=== PATIENT | male | born 1970 | race Two or more races ===

== ENCOUNTER 2020-10-10 10:03 | Emergency (ER) | payer MEDICAID, SELFPAY ==
[2020-10-10] VITALS (8 sets, daily range): BP systolic 103–129; BP diastolic 54–82; PULSE 63–90; RESP 18–20; TEMP 36.4–37.1; O2SAT 98; BMI 27.4
--- NOTE | 2020-10-10 10:13 | PC.NURSE ---
Pt arrived w/ [facility]- cooperative w/ changeover.
--- NOTE | 2020-10-10 10:50 | ED_ITS ---
HPI - Psych General Chief Complaint: Psychiatric Symptoms Stated Complaint: depression/seeking detox Time Seen by Provider: 10/10/20 10:18 Source: patient and EMS Mode of arrival: EMS Limitations: no limitations History of Present Illness HPI Narrative: 50-year-old male with a past medical history asthma, recent abimael mbar surgery, history of substance abuse, depression here with feeling depressed, vague suicidal statements. Patient tells me that he had surgery about 2 months ago on his lumbar spine after an accident. Was prescribed Percocet. He tells me he used his last Percocet Sunday evening. He started to have withdrawal symptoms and bought some heroin. He tells me this morning and 1 hour prior to arrival he snorted heroin. He tells me his mind was racing and he had thoughts of wanting to hurt himself. He tells me he has had history of suicide attempts in the past. He did call his mental health [facility] and she recommended he come to the emergency department. In the room he tells me that he does not feel safe at home and he feels like he will harm himself. Patient states is there anything sharp in here that I can hurt myself with ? He tells me yesterday he bought a bundle of heroin and thought about intentional OD. He used several bags and flushed the rest. he tells me years ago he had substance abuse history but has been [facility] and was [facility] 2007 after being there for 19 years. He tells me he has been doing well and has a job and is working on his relationship with his daughter. He is frustrated with his withdrawal symptoms and has been struggling with trying to discontinue his percocet. He does not want to use substances. Tried to start methadone last week but does not have an ID. Has appt next week to get a picture ID. Not interested in suboxone as he had insomnia as a side effect in the past. no HI. No hallucinations. No additional substance use. No physical complaints. MD complaint: suicidal ideation, feels depressed and substance abuse Onset (ago): day(s) Duration: intermittent History of same: Yes Context: recent drug abuse Associated psychiatric symptoms: depression and suicidal ideation Associated symptoms: denies other symptoms Treatments prior to arrival: none If self harm: admits thoughts of self harm Related Data Allergies Allergy/AdvReac Type Severity Reaction Status Date / Time penicillin G Allergy Unknown Verified 06/30/20 00:00 Penicillins [PENICILLINS] Allergy Unknown BEHZAD LEONARDO Unverified 08/05/20 15:39 TWISTS. Review of Systems Review of Systems: Yes all other systems are reviewed and are negative Constitutional: Constitutional: Reports no additional constitutional complaints, Denies body ache(s), Denies chills, Denies fever(s), Denies headache(s) and Denies weakness Eyes: Eyes: Reports no additional eye complaints and Denies change in vision ENT: Reports system reviewed and no additional complaints, except as documented, Denies dizziness, Denies headache(s), Denies nasal congestion, German es nasal discharge and Denies neck pain Cardiovascular: Cardiovascular: Reports no additional cardiovascular complaints, Denies chest pain, Denies leg edema and Denies dyspnea Respiratory: Respiratory: Reports no additional respiratory complaints, Denies cough and Denies dyspnea Gastrointestinal: Gastrointestinal: Reports no additional gastrointestinal complaints, Denies abdominal pain, Denies diarrhea, Denies nausea and Denies vomiting Genitourinary: Genitourinary: Denies urinary incontinence Musculoskeletal: Musculoskeletal: Reports no additional musculoskeletal complaints, Denies back pain, Denies arthralgias, Denies joint swelling, Denies neck pain, Denies numbness and Denies tingling Integumentary/Breasts: Skin/Breast: Reports system reviewed and no additional complaints, except as docu and Denies rash Neurologic: Reports system reviewed and no additional complaints, except as documented, Denies Abnormal speech present, Denies dizziness, Denies headache(s), Denies numbness, Denies tingling and Denies weakness Psychiatric: Psychiatric: Denies anxiety, Reports depression, Denies homicidal ideation and Reports suicidal ideation [facility] Past Medical History Attestation statement: The following information was validated with the patient. Source: obtained from family and nursing notes reviewed Medical History Asthma Back pain with history of spinal surgery Depression Substance abuse Social History Social History Alcohol intake: former Smoking Status: Current every day smoker Use of substances other than those prescribed or required for medical reasons: Yes Substance Use Type: Heroin Advance Directives: No Advance Directives Information Provided: Yes Physical Exam Vital Signs: Vital Signs: Last Vital Signs Temp 98.4 F 10/10/20 10:48 Pulse 77 10/10/20 10:48 Resp 18 10/10/20 16:00 BP 129/82 10/10/20 10:48 Body Mass Index 27.4 Const: General: cooperative, healthy appearing, comfortable and no acute distress Orientation/consciousness: patient oriented x3 Limitations: no limitations HENMT: Head: Yes normal to inspection Ears: hearing grossly normal bilaterally General nose exam: Normal external nose present Face and sinus: Yes normal facial exam Mouth: Normal oral and palatal mucosa present Throat: Yes posterior oropharynx normal Eyes: General: appearance normal, both eyes and all related structures Pupils: Equal, round and reactive pupils present Neck: Neck: Yes normal visual inspection Chest: Chest palpation & inspection: normal inspection of the chest Resp: Effort & Inspection: normal respiratory effort Auscultation: clear to auscultation bilaterally Cardio: Rate: regular rate Rhythm: regular rhythm Peripheral pulses: P eripheral pulses 2+ throughout GI: Inspection: Yes normal to inspection Palpation (GI): Soft to palpation and nontender Auscultation: normal bowel sounds Back/Spine/Pelvis: Thoracic/Lumbar Spine: thoracic and lumbar spine normal to inspection Skin: General skin exam: no rashes or lesions noted Neuro: General: patient oriented x3, no focal motor deficits and normal sensation to monofilament Cranial nerves: Yes Equal, round and reactive pupils present Cognition (Neuro): normal cognition Speech: No Abnormal speech present Gait exam (Neuro): Normal gait present Motor exam (neuro): 5/5 motor strength present throughout Extrem: General: Yes normal to inspection Course Course Course Narrative: 50-year-old male here with depression, feeling like he is withdrawing and feeling like he is unsafe home and may harm himself. No concern for acute ingestion or trauma. No physical complaints. Will need labs, drug screen, BHN evaluation. MDM - Psych Restraints Face to Face Assessment: Face to Face Assessment: Current Situation: After assessment of the patient, a review of the pertinent medical record and a discussion with nursing staff, I feel the patient requires a restrain intervention. Reaction To: [] Medical Condition: [] Behavioral State: [] Continued Need: [] Medical Records Attestation: I reviewed the patient's medical records. Lab Data Attestation: I reviewed the patient's lab results. Result diagrams: 10/10/20 10:57 10/10/20 10:57 Labs: Lab Results 10/10/20 10/10/20 10/10/20 Range/Units 10:49 10:57 10:57 WBC 8.5 (4.8-10.8) X10*3/uL RBC 4.45 L (4.60-5.80) X10*6/uL Hgb 13.3 L (14.0-18.0) g/dl Hct 40.2 L (42-52) % MCV 90.3 (80-98) fL MCH 29.9 (27.0-33.0) pg MCHC 33.1 (31.0-36.0) g/dl RDW 12.9 (11.0-16.0) % Plt Count 149 L (160-400) X10*3/uL MPV 11.3 (9.4-12.4) fL Immature Gran % (Auto) 0.2 (0.0-0.4) % Neut % (Auto) 76.6 H (45-73) % Lymph % (Auto) 17.9 L (20-40) % [place] % (Auto) 4.4 (2-11) % Eos % (Auto) 0.7 (0-4) % Baso % (Auto) 0.2 (0-2) % Lymph # (Auto) 1.5 (1.2-4.9) X10*3/uL [place] # (Auto) 0.4 (0.1-1.2) X10*3/uL Eos # (Auto) 0.1 (0.0-0.4) X10*3/uL Baso # (Auto) 0.0 (0.0-0.2) X10*3/uL Abs Immat Gran (auto) 0.02 (0.00-0.03) X10*3/uL Absolute Neuts (auto) 6.5 (2.0-8.3) X10*3/uL Absolute Nucleated RBC 0.000 (0.0-0.012) X10*3/uL Nucleated RBC % (auto) 0.0 (0.0-0.2) /100WBC Sodium 139 (135-145) mmol/L Potassium 4.6 (3.3-5.1) mmol/l Chloride 106 (96-108) mmol/L Carbon Dioxide 26 (22-29) mmol/L Anion Gap 12 (12-20) BUN 15 (9-16) mg/dL Creatinine 1.04 (0.5-1.4) mg/dL Estim Creat Clear Calc 82.1 Estimated GFR > 60 Random Glucose 114 (60-115) mg/dL Calcium 9.1 (8.4-10.2) mg/dL Total Bilirubin (0.0-1.0) mg/dL Direct Bilirubin (0.0-0.5) mg/dL AST (5-37) U/L ALT (0-40) U/L Alkaline Phosphatase (39-117) U/L Total Protein (6.5-8.0) g/dL Albumin (3.5-5.0) g/dL Urine Opiates Screen POSITIVE H (Not Detect) Ur Barbiturates Screen Not Detected (Not Detect) Ur Phencyclidine Scrn Not Detected (Not Detect) Ur Amphetamines Screen Not Detected (Not Detect) U Benzodiazepines Scrn Not Detected (Not Detect) Urine Cocaine Screen Not Detected (Not Detect) U Marijuana (THC) Screen Not Detected (Not Detect) Ethyl Alcohol mg/dL COVID-19 (ADRIAN) (Negative) COVID-19 Clin Com 10/10/20 10/10/20 10/10/20 Range/Units 10:57 10:57 11:06 WBC (4.8-10.8) X10*3/uL RBC (4.60-5.80) X10*6/uL Hgb (14.0-18.0) g/dl Hct (42-52) % MCV (80-98) fL MCH (27.0-33.0) pg MCHC (31.0-36.0) g/dl RDW (11.0-16.0) % Plt Count (160-400) X10*3/uL MPV (9.4-12.4) fL Immature Gran % (Auto) (0.0-0.4) % Neut % (Auto) (45-73) % Lymph % (Auto) (20-40) % [place] % (Auto) (2-11) % Eos % (Auto) (0-4) % Baso % (Auto) (0-2) % Lymph # (Auto) (1.2-4.9) X10*3/uL [place] # (Auto) (0.1-1.2) X10*3/uL Eos # (Auto) (0.0-0.4) X10*3/uL Baso # (Auto) (0.0-0.2) X10*3/uL Abs Immat Gran (auto) (0.00-0.03) X10*3/uL Absolute Neuts (auto) (2.0-8.3) X10*3/uL Absolute Nucleated RBC (0.0-0.012) X10*3/uL Nucleated RBC % (auto) (0.0-0.2) /100WBC Sodium (135-145) mmol/L Potassium (3.3-5.1) mmol/l Chloride (96-108) mmol/L Carbon Dioxide (22-29) mmol/L Anion Gap (12-20) BUN (9-16) mg/dL Creatinine (0.5-1.4) mg/dL Estim Creat Clear Calc Estimated GFR Random Glucose (60-115) mg/dL Calcium (8.4-10.2) mg/dL Total Bilirubin 0.3 (0.0-1.0) mg/dL Direct Bilirubin 0.2 (0.0-0.5) mg/dL AST 28 (5-37) U/L ALT 32 (0-40) U/L Alkaline Phosphatase 55 (39-117) U/L Total Protein 7.3 (6.5-8.0) g/dL Albumin 4.3 (3.5-5.0) g/dL Urine Opiates Screen (Not Detect) Ur Barbiturates Screen (Not Detect) Ur Phencyclidine Scrn (Not Detect) Ur Amphetamines Screen (Not Detect) U Benzodiazepines Scrn (Not Detect) Urine Cocaine Screen (Not Detect) U Marijuana (THC) Screen (Not Detect) Ethyl Alcohol < 10 mg/dL COVID-19 (ADRIAN) Negative (Negative) COVID-19 Clin Com See Note Discharge Plan Discharge Clinical Impression: Depression, Feeling suicidal, Substance use
[2020-10-10 11:17] LABS: Basophils Percent Auto 0.2 % (0-2); Eosinophils Absolute Auto 0.1 X10*3/uL (0.0-0.4); Eosinophils Percent Auto 0.7 % (0-4); Hematocrit 40.2 % (42-52); Hemoglobin 13.3 g/dl (14.0-18.0); Imm Gran Abs Auto 0.02 X10*3/uL (0.00-0.03); Imm Gran Pct Auto 0.2 % (0.0-0.4); Lymphocytes Absolute Auto 1.5 X10*3/uL (1.2-4.9); Lymphocytes Percent Auto 17.9 % (20-40); MANUAL DIFF FLAG NO; Mean Corpuscular HGB Conc 33.1 g/dl (31.0-36.0); Mean Corpuscular Hemoglobin 29.9 pg (27.0-33.0); Mean Corpuscular Volume 90.3 fL (80-98); Mean Platelet Volume 11.3 fL (9.4-12.4); Monocytes Absolute Auto 0.4 X10*3/uL (0.1-1.2); Monocytes Percent Auto 4.4 % (2-11); Neutrophils Absolute Auto 6.5 X10*3/uL (2.0-8.3); Neutrophils Percent Auto 76.6 % (45-73); Platelet Count 149 X10*3/uL (160-400); Red Blood Count 4.45 X10*6/uL (4.60-5.80); Red Cell Distribution Width 12.9 % (11.0-16.0); White Blood Count 8.5 X10*3/uL (4.8-10.8)
[2020-10-10 11:36] LABS: COVID-19 Test Negative (Negative)
[2020-10-10 11:36] LABS: Ethanol < 10 mg/dL
[2020-10-10 11:40] LABS: Alanine Aminotransferase 32 U/L (0-40); Albumin Level 4.3 g/dL (3.5-5.0); Alkaline Phosphatase 55 U/L (39-117); Anion Gap 12 (12-20); Aspartate Amino Transferase 28 U/L (5-37); Bilirubin Direct 0.2 mg/dL (0.0-0.5); Bilirubin Total 0.3 mg/dL (0.0-1.0); Blood Urea Nitrogen 15 mg/dL (9-16); Calcium 9.1 mg/dL (8.4-10.2); Carbon Dioxide 26 mmol/L (22-29); Chloride 106 mmol/L (96-108); Creatinine Clr Calc Pharmacy 82.1; Estimated Glomerular Filt Rate > 60; Glucose Random 114 mg/dL (60-115); Potassium 4.6 mmol/l (3.3-5.1); Sodium 139 mmol/L (135-145); Total Protein 7.3 g/dL (6.5-8.0)
[2020-10-10 11:51] LABS: Amphetamine Screen Urine Not Detected (Not Detect); Barbiturates, Urine Not Detected (Not Detect); Benzodiazepines Screen Urine Not Detected (Not Detect); Cannabinoid Screen Urine Not Detected (Not Detect); Cocaine Screen Urine Not Detected (Not Detect); Opiate Screen Urine POSITIVE (Not Detect); Phencyclidine Screen Urine Not Detected (Not Detect)
--- NOTE | 2020-10-10 12:48 | PC.NURSE ---
michaelle called -no response. called again, spoke w/ [place]lotte.
--- NOTE | 2020-10-10 12:51 | PC.NURSE ---
Per [facility], no fax received despite receipt. Fax resent.
[2020-10-10] MEDS: Nicotine Polacrilex 2 MG GUM BUCCAL ×2 (13:43→21:11)
--- NOTE | 2020-10-10 15:46 | PC.NURSE ---
BHN in to assess pt. Pt reporting sympoms of withdrawal including restless, anxiety, chills. Rossi mccabe.
[2020-10-10] MEDS: LORazepam 0.5 MG TABLET 1 MG PO (15:53)
--- NOTE | 2020-10-10 19:05 | PC.NURSE ---
Patient in bed at this time, calm, quiet, appears sleeping, no distress observed/reported, respiration +/=/non-labored bilaterally, will continue to monitor.
[2020-10-10] MEDS: LORazepam 1 MG TABLET PO (21:07)
--- NOTE | 2020-10-10 21:28 | PC.NURSE ---
Patient seems restless, vital assessed/WNL, COW assessed/scored 10, provider notified/ordered Ativan 1 mg/administered as ordered, will continue to monitor.
[2020-10-11] VITALS (11 sets, daily range): BP systolic 94–119; BP diastolic 48–83; PULSE 66–85; RESP 16–20; TEMP 36.8–37; O2SAT 97–99
[2020-10-11] MEDS: Nicotine Polacrilex 2 MG GUM BUCCAL ×5 (00:41→19:26)
[2020-10-11] MEDS: cloNIDine HCL 0.1 MG TABLET PO ×2 (01:39→04:49)
--- NOTE | 2020-10-11 01:47 | PC.NURSE ---
Patient reported anxiety, vital signs WNL, provider notified/ordered Clonidine 0.1 mg/administered as ordered, will continue to monitor.
[2020-10-11] MEDS: LORazepam 1 MG TABLET PO (03:55)
[2020-10-11] MEDS: LORazepam 1 MG TABLET 2 MG PO ×2 (09:31→22:46)
[2020-10-11] MEDS: Buprenorphine/Naloxone 4/1 mg FILM 1 FILM SUBLINGUAL ×2 (10:08→12:24)
--- NOTE | 2020-10-11 11:14 | MHC.CARE ---
Recovery Support note: Patient is a 50 year old Chinese speaking male who presented to [facility] due to SI and depression following a relapse on heroin. Patient reports having back surgery in July and that he has been on Percocet since then and recently ran out of medication, leading him to turn to heroin. Patient reports he is uncomfortable due to the withdrawal symptoms, specifically sweating and shaking. Patient reports a long history of incarceration and a desire to get into recovery so that he can have a good relationship with his daughter. Patient reports he has tried Suboxone in the past and that it gave him insomnia. Patient reports he ultimately wants to get on Methadone as he still experiences back pain. Patient reports he is interested in giving Suboxone another shot due to the level of discomfort he is experiencing. This public relations writer explained to patient that he will be able to continue getting the Suboxone while in treatment, and that they will schedule an appointment for him before he discharges. This public relations writer provided patient with information on the [facility]. Discussed case with patient's RN and ED provider.
--- NOTE | 2020-10-11 15:44 | PC.NURSE ---
Report received. Pt reports he is feeling a lot better than he did yesterday. No complaints at this time. Calm and cooperative. Currently resting in his room.
--- NOTE | 2020-10-11 17:36 | PC.NURSE ---
Pt on phone at current. No complaints, calm.
--- NOTE | 2020-10-11 19:07 | PC.NURSE ---
Report received. PT is sleeping in bed. Breathing is even and unlabored. Inpatient bed search in progress.
--- NOTE | 2020-10-11 19:27 | PC.NURSE ---
PT woke up out of bed and started pacing around the unit. When asked if he needed anything, PT responded saying I was doing fine but then I started to get chills in bed so I'm trying to walk them off . PT offered and accepted PRN nicotine gum. PT was not exhibiting any other signs of withdrawal at this time. No other complaints made by PT.
--- NOTE | 2020-10-11 20:21 | PC.NURSE ---
PT is now requesting his night time medications . PT stated that he would like his suboxone to help with withdrawal. No mediations are available in MAR.
[2020-10-12] VITALS (7 sets, daily range): BP systolic 90–113; BP diastolic 55–68; PULSE 66–85; RESP 16–20; TEMP 36.3–37.3; O2SAT 97–99
[2020-10-12] MEDS: Nicotine Polacrilex 2 MG GUM BUCCAL ×4 (04:16→21:22)
[2020-10-12] MEDS: cloNIDine HCL 0.2 MG TABLET PO (05:30)
--- NOTE | 2020-10-12 06:59 | PC.NURSE ---
Report recieved. Pt ambulated to bathroom with steady gait, denies complaints, pt currently watching tv. Pt is inpatient bedsearch.
[2020-10-12] MEDS: Buprenorphine/Naloxone 4/1 mg FILM 1 FILM SUBLINGUAL ×2 (09:42→21:22)
[2020-10-12] MEDS: LORazepam 1 MG TABLET PO (16:36)
[2020-10-12] MEDS: Miconazole 2 % Extra Thick Cr 56.7 Gm Tube 1 APPL TOPICAL (16:48)
--- NOTE | 2020-10-12 19:02 | PC.NURSE ---
Report received. PT out of bed to use the bathroom and asking for crackers and juice. Calm and cooperative. Inpatient bed search in progress.
[2020-10-13] VITALS: BP 95/63; PULSE 74; RESP 18; TEMP 36.5; O2SAT 98
--- NOTE | 2020-10-13 01:29 | PC.NURSE ---
Nurse called [facility] and recommended a [facility] for the PT. PT came in on 10/10/20 when he became an inpatient bed search. PT recently stated that he would now like to go home instead. DANAN stated that someone would be here in the morning to reassess.
[2020-10-13 06:00] VITALS: BP 109/65; PULSE 72; RESP 18; TEMP 36.7; O2SAT 98
--- NOTE | 2020-10-13 07:37 | PC.NURSE ---
Report received from KURT Gage. Pt awake, affect even. showered.
[2020-10-13] MEDS: Nicotine Polacrilex 2 MG GUM BUCCAL (08:42)
[2020-10-13] MEDS: Buprenorphine/Naloxone 8/2 mg TAB.SUBL 1 TAB SUBLINGUAL (09:11)
[2020-10-13 10:18] VITALS: BP 116/81; PULSE 74; TEMP 36.3; O2SAT 99
--- NOTE | 2020-10-13 10:22 | PC.NURSE ---
Pt seen by N, per N to be discharged. Pt affect bright, states he is looking forward to seeing family.
--- NOTE | 2020-10-13 10:54 | PC.NURSE ---
CARE team in- able to obtain appointment today w/ [facility] for follow up care for Suboxone.
== END 2020-10-13 11:07 | disposition home or self-care (01) ==
PROVIDERS: Nurse Practitioner Family; Emergency Provider Emergency Medicine
DX: F33.1 Major depressive disorder, recurrent, moderate (principal); R45.851 Suicidal ideations; F11.10 Opioid abuse, uncomplicated; Z20.828 Contact with and (suspected) exposure to other viral communicable diseases; Z71.51 Drug abuse counseling and surveillance of drug abuser
CPT/HCPCS: 36415; 80048; 80076; 80307; 80320; 85025; 87635; 99285; J0573; J0574

== ENCOUNTER → 2020-10-13 11:11 | Outpatient (BNVA) | payer MEDICAID, SELFPAY | PROVIDERS: Visit Provider Internal Medicine | DX: F11.99 Opioid use, unspecified with unspecified opioid-induced disorder (principal); R76.8 Other specified abnormal immunological findings in serum | CPT/HCPCS: 99202; 99211 ==

== ENCOUNTER 2020-10-27 13:03 | Outpatient (REF) | payer MEDICAID, SELFPAY ==
[2020-10-29 08:27] LABS: Hepatitis A Antibody IgG REACTIVE (Nonreactive); ~Hepatitis A Antibody IgG 13.56 S/CO (0.00-0.99)
[2020-10-29 08:46] LABS: ~HepC Num1 13.59 S/CO (0.00-0.79); ~Hepatitis B Surface Antibody REACTIVE (Nonreactive); ~Hepatitis C Antibody Reactive (Nonreactive)
[2020-10-29 09:30] LABS: HBsAGNum1 0.22 S/CO (0.00-0.99); HIV AB/AG Nonreactive (Nonreactive); HIV Num 1 0.07 S/CO (0.00-0.99); Hepatitis B Surface Antigen Negative (Negative)
[2020-10-29 11:13] LABS: HBc Num1 10.56 S/CO (0.00-0.79)
[2020-10-29 11:19] LABS: HBc Num2 10.56 S/CO; HBc Num3 10.91 S/CO; Hepatitis B Core Antibody Reactive (Nonreactive)
[2020-10-30 13:13] LABS: Hepatitis B Core Antibody IgM NON-REACTIVE (NON-REACTIVE)
[2020-10-30 19:02] LABS: FIB-ALT 28 U/L (9-46); FIB-Alpha-2-Macroglobulin 216 mg/dL (106-279); FIB-Apolipoprotein A1 157 mg/dL (94-176); FIB-GGT 30 U/L (3-95); FIB-Haptoglobin 72 mg/dL (43-212); FIB-Total Bilirubin 0.3 mg/dL (0.2-1.2); Liver Fibrosis Score 0.23; Liver Fibrosis Stage F0-F1; Nec Inflam Act Grade A0; Nec Inflam Act Score 0.12
[2020-11-02 15:38] LABS: Hepatitis C Genotype 1a
== END 2020-10-27 13:04 | disposition home or self-care (01) ==
LOC: HO.LAB 13:03
PROVIDERS: Visit Provider Internal Medicine
DX: F11.99 Opioid use, unspecified with unspecified opioid-induced disorder (principal)
CPT/HCPCS: 80305; 81596; 86704; 86705; 86706; 86708; 86803; 87340; 87389; 87902; 99211

== ENCOUNTER → 2020-11-03 14:08 | Outpatient (BNVA) | payer MEDICAID, SELFPAY | PROVIDERS: Visit Provider Internal Medicine | DX: Z76.89 Persons encountering health services in other specified circumstances (principal) ==

== ENCOUNTER → 2021-01-07 11:33 | Outpatient (BNVA) | payer MEDICAID, SELFPAY | PROVIDERS: Visit Provider Nurse Practitioner ==

== ENCOUNTER 2021-01-13 09:32 | Outpatient (REF) | payer MEDICAID, SELFPAY ==
--- NOTE | ~2021-01-13 | US_ITS ---
EXAMINATION: US ABDOMEN COMPLETE CLINICAL INFORMATION: Chronic hepatitis C. COMPARISON: CT 05/12/2019 TECHNIQUE: Real-time imaging of the abdominal viscera. FINDINGS: PANCREAS: Obscured by bowel gas ABDOMINAL AORTA: The proximal, mid, and distal segments are normal in caliber. INFERIOR VENA CAVA: Visualized portions are normal. LIVER: Borderline increased echogenicity of the liver parenchyma. No focal hepatic lesion. There is no intrahepatic biliary duct dilatation seen. Right lobe measures 15.6 cm. Left lobe measures 10.6 cm. Shear wave liver elastography median stiffness is 1.52 m/s (reference: normal median stiffness is 1.3 m/s or less). IQR/median stiffness to assess sampling precision is 0.18 (reference: good quality data set is IQR/median stiffness of 0.15 or less). GALLBLADDER: Normal. The gallbladder is physiologically distended without evidence of stones, sludge, polyps, wall thickening or pericholecystic fluid. COMMON BILE DUCT: Normal in caliber measuring 0.5 cm in diameter. RIGHT KIDNEY: Normal. No hydronephrosis. No renal calculi or focal parenchymal lesions. The kidney measures 9.1 cm in maximum dimension. LEFT KIDNEY: Normal. No hydronephrosis. No renal calculi or focal parenchymal lesions. The kidney measures 10.2 cm in maximum dimension. SPLEEN: Normal. The spleen measures 10.4 cm in maximum dimension. FREE FLUID: None. US/US abdomen complete IMPRESSION: 1. There is borderline increase in hepatic echotexture, correlating with the clinical history of cirrhosis. No focal hepatic mass or intrahepatic biliary duct dilatation is seen. 2. Pancreas obscured by bowel gas. 3. Liver elastography: Median stiffness of 1.52 m/s. As per the attached reference- In the absence of other known clinical signs, rules out compensated advanced chronic liver disease. See attached reference. REFERENCE: Society of Radiologists in Ultrasound Liver Stiffness Thresholds (2020): LIVER STIFFNESS THRESHOLDS: *Liver Stiffness equal or less than 1.3 m/s: High probability of being normal. *Liver Stiffness less than 1.7 m/s: In the absence of other known clinical signs, rules out compensated advanced chronic liver disease. *Liver Stiffness 1.7-2.1 m/s: Suggestive of compensated advanced chronic liver disease but need further test for confirmation. *Liver Stiffness over 2.1 m/s: Rules in compensated advanced chronic liver disease. *Liver Stiffness over 2.4 m/s: Suggestive of clinically significant portal hypertension. QUALITY OF DATA SET: *IQR/Median value equal or less than 0.15 implies a quality data set. *IQR/Median value over 0.15 implies a poor quality data set. SIGNIFICANT CHANGE FROM PRIOR EXAM: Significant change if liver stiffness measurement is 10% or greater from prior exam. OTHER CONSIDERATIONS: The stage of liver fibrosis may be overestimated in the setting of acute hepatitis, liver inflammation, elevated liver function tests, hepatic vascular congestion, obstructive cholestasis, non-fasting state, and infiltrative diseases such as amyloidosis and lymphoma. In some patients with NAFLD, the liver stiffness thresholds for compensated advanced chronic liver disease may be lower. In causes other than viral hepatitis and NAFLD, liver stiffness thresholds are not well established.
[2021-01-13 10:57] LABS: MANUAL DIFF FLAG NO
[2021-01-13 11:02] LABS: Basophils Percent Auto 0.5 % (0-2); Eosinophils Absolute Auto 0.2 X10*3/uL (0.0-0.4); Eosinophils Percent Auto 2.6 % (0-4); Hematocrit 39.2 % (42-52); Imm Gran Abs Auto 0.01 X10*3/uL (0.00-0.03); Imm Gran Pct Auto 0.1 % (0.0-0.4); Lymphocytes Absolute Auto 1.9 X10*3/uL (1.2-4.9); Lymphocytes Percent Auto 24.8 % (20-40); Mean Corpuscular HGB Conc 33.2 g/dl (31.0-36.0); Mean Corpuscular Hemoglobin 29.7 pg (27.0-33.0); Mean Corpuscular Volume 89.5 fL (80-98); Mean Platelet Volume 11.6 fL (9.4-12.4); Monocytes Absolute Auto 0.6 X10*3/uL (0.1-1.2); Monocytes Percent Auto 7.7 % (2-11); Neutrophils Percent Auto 64.3 % (45-73); Platelet Count 147 X10*3/uL (160-400); Red Blood Count 4.38 X10*6/uL (4.60-5.80); Red Cell Distribution Width 12.8 % (11.0-16.0); White Blood Count 7.8 X10*3/uL (4.8-10.8)
[2021-01-13 11:33] LABS: Alanine Aminotransferase 45 U/L (0-40); Albumin Level 4.4 g/dL (3.5-5.0); Alkaline Phosphatase 46 U/L (39-117); Anion Gap 11 (12-20); Aspartate Amino Transferase 68 U/L (5-37); Bilirubin Total 0.7 mg/dL (0.0-1.0); Blood Urea Nitrogen 20 mg/dL (9-16); Calcium 9.4 mg/dL (8.4-10.2); Carbon Dioxide 26 mmol/L (22-29); Chloride 108 mmol/L (96-108); Estimated Glomerular Filt Rate 57; Glucose Random 95 mg/dL (60-115); Potassium 4.8 mmol/L (3.3-5.1); Sodium 140 mmol/L (135-145); Total Protein 6.9 g/dL (6.5-8.0)
== END 2021-01-13 09:33 | disposition home or self-care (01) ==
LOC: HO.US 09:32
PROVIDERS: Nurse Practitioner; Visit Provider Emergency Medicine
DX: Z12.11 Encounter for screening for malignant neoplasm of colon (principal); B19.20 Unspecified viral hepatitis C without hepatic coma; K59.04 Chronic idiopathic constipation; F11.99 Opioid use, unspecified with unspecified opioid-induced disorder; R76.8 Other specified abnormal immunological findings in serum
CPT/HCPCS: 36415; 76700; 80053; 85025; 87522

== ENCOUNTER → 2021-03-04 10:48 | Outpatient (BNVA) | payer OTHER, SELFPAY | PROVIDERS: PCP Internal Medicine; Visit Provider Nurse Practitioner ==

== ENCOUNTER 2021-03-23 10:23 | Outpatient (REF) | payer OTHER, SELFPAY | END 2021-03-23 10:24 | disposition home or self-care (01) | LOC: HO.LAB 10:23 | PROVIDERS: PCP Internal Medicine; Visit Provider Nurse Practitioner | DX: Z13.89 Encounter for screening for other disorder (principal) ==

== ENCOUNTER 2021-04-14 13:32 | Outpatient (REF) | payer OTHER, SELFPAY ==
--- NOTE | ~2021-04-14 | XR_ITS ---
EXAMINATION: RIGHT SHOULDER AND CERVICAL SPINE. CLINICAL INFORMATION: Pain right shoulder neck pain. COMPARISON: Right shoulder 06/30/20. TECHNIQUE: 4 views right shoulder. Cervical spine 6 views. FINDINGS: RIGHT SHOULDER: There is no visible acute fracture, dislocation or subluxation. There is mild reduction in the glenohumeral joint space. No bony erosive changes seen. There is a 5 mm calcified density along the lateral cortex right proximal femur question old injury versus calcific bursitis. CERVICAL SPINE: There is maintained cervical lordosis. The vertebral heights and alignment is normal. There is loss of C3-C4, C5-C6, C6-C7 and C7-T1 disc heights. There is moderate to C3-C4 and mild C6-C7 neural foraminal narrowing from uncovertebral hypertrophic changes. No visible acute fracture or dislocation seen. XR/XR cervical spine min 6V IMPRESSION: Degenerative changes glenohumeral joint with no visible acute fracture or dislocation right shoulder. Small calcified density lateral cortex right proximal humerus likely calcific bursitis oral injury. Bilateral moderate C3-C4 and mild C6-C7 neural foraminal narrowing from uncovertebral hypertrophic changes. There is no visible acute fracture, dislocation or lytic process seen.
--- NOTE | ~2021-04-14 | XR_ITS ---
EXAMINATION: RIGHT SHOULDER AND CERVICAL SPINE. CLINICAL INFORMATION: Pain right shoulder neck pain. COMPARISON: Right shoulder 06/30/20. TECHNIQUE: 4 views right shoulder. Cervical spine 6 views. FINDINGS: RIGHT SHOULDER: There is no visible acute fracture, dislocation or subluxation. There is mild reduction in the glenohumeral joint space. No bony erosive changes seen. There is a 5 mm calcified density along the lateral cortex right proximal femur question old injury versus calcific bursitis. CERVICAL SPINE: There is maintained cervical lordosis. The vertebral heights and alignment is normal. There is loss of C3-C4, C5-C6, C6-C7 and C7-T1 disc heights. There is moderate to C3-C4 and mild C6-C7 neural foraminal narrowing from uncovertebral hypertrophic changes. No visible acute fracture or dislocation seen. XR/XR shoulder RT min 2V IMPRESSION: Degenerative changes glenohumeral joint with no visible acute fracture or dislocation right shoulder. Small calcified density lateral cortex right proximal humerus likely calcific bursitis oral injury. Bilateral moderate C3-C4 and mild C6-C7 neural foraminal narrowing from uncovertebral hypertrophic changes. There is no visible acute fracture, dislocation or lytic process seen.
== END 2021-04-14 13:33 | disposition home or self-care (01) ==
LOC: HO.XRAY 13:32
PROVIDERS: Absent Provider Nurse Practitioner Family; PCP Nurse Practitioner Family; Visit Provider Registered Nurse
DX: M25.511 Pain in right shoulder (principal); M54.2 Cervicalgia; M79.601 Pain in right arm; M89.8X1 Other specified disorders of bone, shoulder
CPT/HCPCS: 72052; 73030

== ENCOUNTER → 2021-05-19 08:48 | Outpatient (BNVA) | payer OTHER, SELFPAY | PROVIDERS: PCP Internal Medicine; Visit Provider Nurse Practitioner | DX: Z13.89 Encounter for screening for other disorder (principal) | CPT/HCPCS: 99212 ==

== ENCOUNTER → 2021-06-06 10:07 | Outpatient (BNVA) | payer OTHER, SELFPAY | PROVIDERS: PCP Internal Medicine; Visit Provider Nurse Practitioner ==

== ENCOUNTER 2021-06-09 08:07 | Emergency (ER) | payer OTHER, SELFPAY ==
--- NOTE | ~2021-06-09 | XR_ITS ---
EXAMINATION: RIGHT KNEE AND RIGHT ANKLE CLINICAL INFORMATION: Pain COMPARISON: None TECHNIQUE: 4 views of the right ankle and 4 views of the right knee FINDINGS: There is no evidence of acute fracture or dislocation of the right ankle. Mild soft tissue swelling is seen laterally. There appears be a subchondral cyst about the talar dome medially There is no evidence of acute fracture or dislocation of the right knee. Right knee joint spaces are maintained. No effusion is seen. There is some bony fragmentation seen about the tibial tuberosity as well as some overlying soft tissue edema with the appearance of old [place]-Schlatter's disease as well as edema of some etiology such as trauma.. XR/XR ankle RT min 3V IMPRESSION: No evidence of acute fracture or dislocation of the right ankle. No evidence of acute fracture, dislocation, or effusion of the right knee. Findings of chronic enlarged There is disease as well as soft tissue swelling overlying the tibial tuberosity likely related to trauma as [place]-Schlatter's disease is unusual in adults.
--- NOTE | ~2021-06-09 | XR_ITS ---
EXAMINATION: RIGHT KNEE AND RIGHT ANKLE CLINICAL INFORMATION: Pain COMPARISON: None TECHNIQUE: 4 views of the right ankle and 4 views of the right knee FINDINGS: There is no evidence of acute fracture or dislocation of the right ankle. Mild soft tissue swelling is seen laterally. There appears be a subchondral cyst about the talar dome medially There is no evidence of acute fracture or dislocation of the right knee. Right knee joint spaces are maintained. No effusion is seen. There is some bony fragmentation seen about the tibial tuberosity as well as some overlying soft tissue edema with the appearance of old [place]-Schlatter's disease as well as edema of some etiology such as trauma.. XR/XR knee RT 3V IMPRESSION: No evidence of acute fracture or dislocation of the right ankle. No evidence of acute fracture, dislocation, or effusion of the right knee. Findings of chronic enlarged There is disease as well as soft tissue swelling overlying the tibial tuberosity likely related to trauma as [place]-Schlatter's disease is unusual in adults.
--- NOTE | ~2021-06-09 | US_ITS ---
EXAMINATION: US VENOUS ULTRASOUND WITH DOPPLER LOWER EXTREMITY, RIGHT CLINICAL INFORMATION: Pain. COMPARISON: None TECHNIQUE: Ultrasound of the deep veins is performed from the hip to the calf with compression sonography and color and pulse Doppler assessment. Spectral analysis with color-flow imaging is performed. FINDINGS: There is normal venous compression and respiratory variation and augmented flow. The visualized common femoral vein, superficial femoral vein, profunda femoral vein, popliteal vein, and the trifurcation region shows no evidence of deep venous thrombosis. There is no significant popliteal fossa cyst. If the patient's symptoms persist, followup ultrasound in 5 days 7 days might be of value to exclude proximal propagation from a non-visualized calf vein. US/US venous duplex LE RT IMPRESSION: No DVT demonstrated in the right lower extremity.
[2021-06-09 08:14] VITALS: BP 132/73; BP 146/60; PULSE 64; PULSE 68; RESP 18; TEMP 37.2; O2SAT 97; O2SAT 98; BMI 27.4
--- NOTE | 2021-06-09 08:18 | ED_ITS ---
HPI - Extremity Injury (Lower) General Chief Complaint: Extremity Injury, Lower Stated Complaint: r ankle pain Time Seen by Provider: 06/09/21 08:18 History of Present Illness HPI Narrative: 51 years old history of back surgery in the past. Complaining of pain to the right leg. Patient has pain to the right knee and to the right ankle. No bowel urinary incontinence. No fever no chills. No focal weakness. Pain is excruciating. No trauma. Related Data Home Medications Medication Instructions Recorded Confirmed folic acid 1 mg tablet 1 mg PO QAM 02/22/21 02/27/21 methadone 40 mg soluble tablet 50 mg PO DAILY tab 02/22/21 02/27/21 hozaarrq-mko-mkrvp acid 0.4 1 tab PO QAM 02/22/21 02/27/21 mg-lycopene 300 mcg-lutein 250 mcg tablet olanzapine 2.5 mg tablet 2.5 mg PO BEDTIME 02/22/21 02/27/21 thiamine HCl (vitamin B1) 100 mg 100 mg PO QAM 02/22/21 02/27/21 tablet albuterol sulfate 90 mcg/actuation 2 puff PO Q4-6H PRN 03/04/21 aerosol inhaler Previous Rx's Medication Instructions Recorded buprenorphine 8 mg-naloxone 2 mg 2 film SUBLINGUAL DAILY 14 Days 11/16/20 sublingual film #28 ea bisacodyl 5 mg tablet,delayed 10 mg PO BEDTIME 2 Days #4 tab 01/07/21 release sofosbuvir 400 mg-velpatasvir 100 1 tab PO DAILY 28 Days #28 tab 02/21/21 mg-voxilaprevir 100 mg tablet linaclotide 145 mcg capsule 145 mcg PO QAM 30 Days #30 cap 03/04/21 bisacodyl 5 mg tablet,delayed 10 mg PO ONCE 1 Days #2 tab 03/28/21 release polyethylene glycol 3350 17 238 g PO ONCE 1 Days #238 g 03/28/21 gram/dose oral powder Allergies Allergy/AdvReac Type Severity Reaction Status Date / Time Penicillins [PENICILLINS] Allergy Unknown MY MALISSA Verified 06/06/21 10:08 TWISTS. PMFSH Past Medical History Medical History Asthma Depression Hepatitis C antibody positive in blood Opioid use disorder Substance abuse Surgical History Back pain with history of spinal surgery Hx of colonoscopy Family History Family History Family/Other Family history of asthma Mother Family history of asthma Social History Social History Household Members: Family Household Members Other:: sister Alcohol intake: current Alcohol intake frequency: a few times a month Cigarette Packs Per Day: 0.5 Cigarettes Per Day: 10 Advance Directives: Yes Advance Directives Information Provided: Yes Advance Directives on File: No Current occupational status: unemployed Physical Exam Vital Signs: Vital Signs: Last Vital Signs Temp 98.9 F 06/09/21 08:14 Pulse 65 06/09/21 12:08 Resp 16 06/09/21 12:08 BP 125/60 06/09/21 12:08 Pulse Ox 98 06/09/21 12:08 Body Mass Index 27.4 MDM - Extremity Injury (Lower) MDM Narrative Medical decision making narrative: X-ray of the knee and ankle did not show any acute evidence of fracture. Doppler of the lower extremity did not show any evidence of DVT. Patient's white count is normal. Electrolyte was pending. Patient decided to elope from the emergency department. No acute distress. No bowel urinary incontinence. No focal weakness. No evidence for cauda equina syndrome. Currently in stable condition. Question sciatica Medical Records Attestation: I reviewed the patient's medical records. Lab Data Attestation: I reviewed the patient's lab results. Result diagrams: 06/09/21 11:54 06/09/21 11:54 Labs: Lab Results 06/09/21 Range/Units 11:54 WBC 9.8 (4.8-10.8) X10*3/uL RBC 3.97 L (4.60-5.80) X10*6/uL Hgb 11.7 L (14.0-18.0) g/dl Hct 36.1 L (42-52) % MCV 90.9 (80-98) fL MCH 29.5 (27.0-33.0) pg MCHC 32.4 (31.0-36.0) g/dl RDW 12.7 (11.0-16.0) % Plt Count 142 L (160-400) X10*3/uL MPV 10.6 (9.4-12.4) fL Immature Gran % (Auto) 0.2 (0.0-0.4) % Neut % (Auto) 74.7 H (45-73) % Lymph % (Auto) 17.7 L (20-40) % [place] % (Auto) 6.8 (2-11) % Eos % (Auto) 0.5 (0-4) % Baso % (Auto) 0.1 (0-2) % Lymph # (Auto) 1.7 (1.2-4.9) X10*3/uL [place] # (Auto) 0.7 (0.1-1.2) X10*3/uL Eos # (Auto) 0.1 (0.0-0.4) X10*3/uL Baso # (Auto) 0.0 (0.0-0.2) X10*3/uL Abs Immat Gran (auto) 0.02 (0.00-0.03) X10*3/uL Absolute Neuts (auto) 7.3 (2.0-8.3) X10*3/uL Absolute Nucleated RBC 0.000 (0.0-0.012) X10*3/uL Nucleated RBC % (auto) 0.0 (0.0-0.2) /100WBC Discharge Plan Discharge Clinical Impression: Sciatic leg pain Patient Disposition: Home, Self-Care Instructions: Sciatica (ED) Prescriptions: No Action Vosevi 400-100-100 mg tablet 1 tab PO DAILY 28 Days Qty: 28 RF: 2 bisacodyl [Dulcolax (bisacodyl)] 5 mg tablet,delayed release (DR/EC) 10 mg PO ONCE 1 Days Qty: 2 RF: 0 polyethylene glycol 3350 [Miralax] 17 gram/dose powder 238 g PO ONCE 1 Days Qty: 238 RF: 0 methadone 40 mg tablet,soluble 50 mg PO DAILY RF: 0 CertaVite Senior 0.4-300-250 mg-mcg-mcg tablet 1 tab PO QAM RF: 0 folic acid 1 mg tablet 1 mg PO QAM RF: 0 thiamine HCl (vitamin B1) 100 mg tablet 100 mg PO QAM RF: 0 olanzapine 2.5 mg tablet 2.5 mg PO BEDTIME RF: 0 buprenorphine-naloxone [Suboxone] 8-2 mg film 2 film sublingual DAILY 14 Days Qty: 28 RF: 0 bisacodyl [Dulcolax (bisacodyl)] 5 mg tablet,delayed release (DR/EC) 10 mg PO BEDTIME 2 Days Qty: 4 RF: 0 albuterol sulfate 90 mcg/actuation HFA aerosol inhaler 2 puff PO Q4-6H PRNRF: 0 Linzess 145 mcg capsule 145 mcg PO QAM 30 Days Qty: 30 RF: 6 Interventions: ED Discharge Assessment Last Done: 06/09/21 12:10
[2021-06-09] MEDS: oxyCODONE HCl Immed Release 5 MG TABLET PO (08:40)
[2021-06-09 12:02] LABS: MANUAL DIFF FLAG NO
[2021-06-09 12:04] LABS: Basophils Percent Auto 0.1 % (0-2); Eosinophils Absolute Auto 0.1 X10*3/uL (0.0-0.4); Eosinophils Percent Auto 0.5 % (0-4); Hematocrit 36.1 % (42-52); Hemoglobin 11.7 g/dl (14.0-18.0); Imm Gran Abs Auto 0.02 X10*3/uL (0.00-0.03); Imm Gran Pct Auto 0.2 % (0.0-0.4); Lymphocytes Absolute Auto 1.7 X10*3/uL (1.2-4.9); Lymphocytes Percent Auto 17.7 % (20-40); Mean Corpuscular HGB Conc 32.4 g/dl (31.0-36.0); Mean Corpuscular Hemoglobin 29.5 pg (27.0-33.0); Mean Corpuscular Volume 90.9 fL (80-98); Mean Platelet Volume 10.6 fL (9.4-12.4); Monocytes Absolute Auto 0.7 X10*3/uL (0.1-1.2); Monocytes Percent Auto 6.8 % (2-11); Neutrophils Absolute Auto 7.3 X10*3/uL (2.0-8.3); Neutrophils Percent Auto 74.7 % (45-73); Platelet Count 142 X10*3/uL (160-400); Red Blood Count 3.97 X10*6/uL (4.60-5.80); Red Cell Distribution Width 12.7 % (11.0-16.0); White Blood Count 9.8 X10*3/uL (4.8-10.8)
[2021-06-09 12:08] VITALS: BP 125/60; PULSE 65; RESP 16; O2SAT 98
[2021-06-09 12:43] LABS: Anion Gap 9 (12-20); Blood Urea Nitrogen 20 mg/dL (9-16); Carbon Dioxide 26 mmol/L (22-29); Chloride 106 mmol/L (96-108); Creatinine Clr Calc Pharmacy 80.4; Estimated Glomerular Filt Rate > 60; Glucose Random 84 mg/dL (60-115); Sodium 136 mmol/L (135-145)
== END 2021-06-09 12:14 | disposition home or self-care (01) ==
PROVIDERS: Emergency Provider Emergency Medicine Emergency Medical Services
DX: M54.31 Sciatica, right side (principal); M79.604 Pain in right leg; M25.571 Pain in right ankle and joints of right foot; F17.210 Nicotine dependence, cigarettes, uncomplicated; F11.20 Opioid dependence, uncomplicated
CPT/HCPCS: 36415; 73562; 73610; 80048; 85025; 93971; 99284

== ENCOUNTER → 2021-07-14 09:09 | Outpatient (BNVA) | payer OTHER, SELFPAY | PROVIDERS: Visit Provider Nurse Practitioner ==

== ENCOUNTER → 2021-08-30 08:58 | Outpatient (BNVA) | payer OTHER, SELFPAY | PROVIDERS: Visit Provider Nurse Practitioner ==

== ENCOUNTER → 2021-12-12 15:00 | Outpatient (BNVA) | payer MEDICAID, SELFPAY | PROVIDERS: Visit Provider Anesthesiology | DX: M96.1 Postlaminectomy syndrome, not elsewhere classified (principal); M47.816 Spondylosis without myelopathy or radiculopathy, lumbar region; M51.36 Other intervertebral disc degeneration, lumbar region; G89.4 Chronic pain syndrome | CPT/HCPCS: 99212 ==

== ENCOUNTER 2022-03-01 08:14 | Emergency (ER) | payer MEDICAID, SELFPAY ==
--- NOTE | ~2022-03-01 | US_ITS ---
EXAMINATION: US VENOUS ULTRASOUND WITH DOPPLER LOWER EXTREMITY, BILATERAL CLINICAL INFORMATION: Pain and swelling. COMPARISON: None TECHNIQUE: Ultrasound of the deep veins is performed from the hip to the calf with compression sonography and color and pulse Doppler assessment. Spectral analysis with color-flow imaging is performed. FINDINGS: RIGHT: There is normal venous compression and respiratory variation and augmented flow. The visualized common femoral vein, superficial femoral vein, profunda femoral vein, popliteal vein, and the trifurcation region shows no evidence of deep venous thrombosis. There is no significant popliteal fossa cyst. LEFT: There is normal venous compression and respiratory variation and augmented flow. The visualized common femoral vein, superficial femoral vein, profunda femoral vein, popliteal vein, and the trifurcation region shows no evidence of deep venous thrombosis. There is no significant popliteal fossa cyst. If the patient's symptoms persist, followup ultrasound in 5 days 7 days might be of value to exclude proximal propagation from a non-visualized calf vein. US/US venous duplex LE BI IMPRESSION: No DVT demonstrated in the bilateral lower extremity.
--- NOTE | ~2022-03-01 | XR_ITS ---
EXAMINATION: XR CHEST CLINICAL INFORMATION: Bilateral leg swelling with SOB. COMPARISON: None TECHNIQUE: Frontal view of the chest was obtained. FINDINGS: No significant abnormality is noted involving the heart, lungs, mediastinum, bony thorax or soft tissues. XR/XR chest 1V IMPRESSION: Unremarkable chest examination.
[2022-03-01 08:23] VITALS: BP 104/60; PULSE 60; RESP 16; TEMP 35.8; O2SAT 98; BMI 31.8
--- NOTE | 2022-03-01 08:27 | ECG_ITS ---
Test Reason : SWELLING,SOB Blood Pressure : / mmHG Vent. Rate : 050 BPM Atrial Rate : 050 BPM P-R Int : 198 ms QRS Dur : 106 ms QT Int : 486 ms P-R-T Axes : 036 006 012 degrees QTc Int : 443 ms Sinus bradycardia Otherwise normal ECG No previous ECGs available Referred By: Generic ED Physician Electronically Signed By:Wilian Frost
[2022-03-01 08:38] LABS: MANUAL DIFF FLAG NO
[2022-03-01 08:39] LABS: Basophils Percent Auto 0.1 % (0-2); Eosinophils Absolute Auto 0.3 X10*3/uL (0.0-0.4); Eosinophils Percent Auto 3.4 % (0-4); Hematocrit 35.7 % (42.0-52.0); Hemoglobin 11.6 g/dl (14.0-18.0); Imm Gran Abs Auto 0.02 X10*3/uL (0.00-0.03); Imm Gran Pct Auto 0.3 % (0.0-0.4); Lymphocytes Absolute Auto 1.9 X10*3/uL (1.2-4.9); Lymphocytes Percent Auto 24.7 % (20-40); Mean Corpuscular HGB Conc 32.5 g/dl (31.0-36.0); Mean Corpuscular Hemoglobin 29.8 pg (27.0-33.0); Mean Corpuscular Volume 91.8 fL (80.0-98.0); Mean Platelet Volume 10.9 fL (9.4-12.4); Monocytes Absolute Auto 0.5 X10*3/uL (0.1-1.2); Monocytes Percent Auto 6.9 % (2-11); Neutrophils Percent Auto 64.6 % (45-73); Platelet Count 140 X10*3/uL (160-400); Red Blood Count 3.89 X10*6/uL (4.60-5.80); Red Cell Distribution Width 13.5 % (11.0-16.0); White Blood Count 7.7 X10*3/uL (4.8-10.8)
--- NOTE | 2022-03-01 08:39 | PC.NURSE ---
pt ambulating in room, asking for something to drink. no distress noted.
[2022-03-01 08:53] LABS: Anion Gap 9 (12-20); Blood Urea Nitrogen 18 mg/dL (9-16); Carbon Dioxide 27 mmol/L (22-29); Chloride 107 mmol/L (96-108); Creatinine Clr Calc Pharmacy 70.1; Estimated Glomerular Filt Rate 58; Glucose Random 120 mg/dL (60-115); Potassium 4.4 mmol/L (3.3-5.1); Sodium 139 mmol/L (135-145)
[2022-03-01 09:00] LABS: B Type Natriuretic Peptide 76 pg/mL (<100); Troponin-I High Sensitivity < 3.5 ng/L (<3.5-35.0)
--- NOTE | 2022-03-01 09:08 | ED_ITS ---
HPI - Extremity Problem General Chief complaint: General Medical Stated complaint: Swollen legs Time Seen by Provider: 03/01/22 08:30 Source: patient Mode of arrival: ambulatory Limitations: no limitations History of Present Illness MD Complaint: extremity swelling Onset (ago): week(s) (1+ on and off) Pain Consistency: intermittent Location: left, right and lower extremity Quality: aching Radiation: none Relieving factors: nothing Exacerbating factors: weight bearing and other (on his feet alot tried 4 tabs of lasix around 02/16 but does not wear compression stockings) Associated symptoms: denies other symptoms Context: other (on his feet a lot) Related Data Home Medications Medication Instructions Recorded Confirmed folic acid 1 mg tablet 1 mg PO QAM 02/22/21 02/27/21 methadone 40 mg soluble tablet 50 mg PO DAILY tab 02/22/21 02/27/21 spgoivco-ulf-mtlkv acid 0.4 1 tab PO QAM 02/22/21 02/27/21 mg-lycopene 300 mcg-lutein 250 mcg tablet olanzapine 2.5 mg tablet 2.5 mg PO BEDTIME 02/22/21 02/27/21 thiamine HCl (vitamin B1) 100 mg 100 mg PO QAM 02/22/21 02/27/21 tablet albuterol sulfate 90 mcg/actuation 2 puff PO Q4-6H PRN 03/04/21 aerosol inhaler capsaicin 0.075 % topical cream appl TOPICAL TID 12/12/21 (Arthritis Pain Relief (capsaicin)) diclofenac sodium 1 % topical gel 2 g TOPICAL QID 12/12/21 duloxetine 30 mg capsule,delayed 30 mg PO DAILY 12/12/21 release gabapentin 300 mg capsule 300 mg PO TID 12/12/21 Previous Rx's Medication Instructions Recorded buprenorphine 8 mg-naloxone 2 mg 2 film SUBLINGUAL DAILY 14 Days 11/16/20 sublingual film (Suboxone) #28 ea bisacodyl 5 mg tablet,delayed 10 mg PO BEDTIME 2 Days #4 tab 01/07/21 release (Dulcolax (bisacodyl)) sofosbuvir 400 mg-velpatasvir 100 1 tab PO DAILY 28 Days #28 tab 02/21/21 mg-voxilaprevir 100 mg tablet (Vosevi) linaclotide 145 mcg capsule 145 mcg PO QAM 30 Days #30 cap 03/04/21 (Linzess) bisacodyl 5 mg tablet,delayed 10 mg PO ONCE 1 Days #2 tab 03/28/21 release (Dulcolax (bisacodyl)) polyethylene glycol 3350 17 238 g PO ONCE 1 Days #238 g 03/28/21 gram/dose oral powder (Miralax) furosemide 20 mg tablet (Lasix) 20 mg PO DAILY #3 tab 03/01/22 miscellaneous medical supply #4 ea 03/01/22 Allergies Allergy/AdvReac Type Severity Reaction Status Date / Time Penicillins [PENICILLINS] Allergy Unknown MY TOUNGE Verified 12/12/21 15:16 TWISTS. Review of Systems Review of Systems: Constitutional : No Fever, No Chills ENT/Mouth : No Ear Pain, No Hoarseness, No sore throat Eyes: No Eye Pain, No Swelling, No Redness, No Foreign Body Cardiovascular : No Chest Pain, No SOB, pos lower ext edema Respiratory : No Cough, No Dyspnea Gastrointestinal : No Nausea, No Vomiting, No Diarrhea, No abdominal Pain Genitourinary : No Dysuria, No Hematuria Musculoskeletal : no joint pain, No Myalgias, No Joint Swelling Skin : No Skin lacerations, No rash Neuro : No Weakness, No Numbness, No Loss of Consciousness, No Dizziness, No Headache Psych : No Anxiety/Panic, No Depression Heme/Lymph: no easy bruising, no Lymphadenopathy Endocrine : No Polyuria, No Polydipsia All other systems reviewed and are negative [facility] Past Medical History Attestation statement: The following information was validated with the patient. Medical History Asthma Chronic pain syndrome Depression Disc degeneration, lumbar Hepatitis C antibody positive in blood Opioid use disorder Postlaminectomy syndrome Spondylosis of lumbar region without myelopathy or radiculopathy Substance abuse Surgical History Back pain with history of spinal surgery Hx of colonoscopy Family History Family History Family/Other Family history of asthma Mother Family history of asthma Social History Social History Household Members: Family Household Members Other:: sister Alcohol intake: current Alcohol intake frequency: a few times a month Cigarette Packs Per Day: 0.5 Cigarettes Per Day: 10 Advance Directives: No Advance Directives Information Provided: No Current occupational status: unemployed Physical Exam Vital Signs: Vital Signs: Last Vital Signs Temp 97.6 F 03/01/22 11:12 Pulse 46 L 03/01/22 11:12 Resp 15 03/01/22 11:12 BP 120/62 03/01/22 11:12 Pulse Ox 98 03/01/22 11:12 BMI result Body Mass Index 31.8 Appearance: Alert. Oriented X3. No acute distress. Eyes: Pupils equal, round and reactive to light. ENT: Pharynx normal. Neck: Normal inspection. Neck supple. CVS: Normal heart rate and rhythm. Pulses normal. Respiratory: No respiratory distress. Breath sounds normal. Abdomen: Soft and nontender. Skin: Skin warm and dry. Normal skin color. Normal skin turgor. Extremities: 1+ pitting edema ankles and mid lower extremity edema. No calf ttp Neuro: Oriented X 3. No motor deficit. No sensory deficit. MDM - Extremity (Nontraumatic) MDM Narrative Medical decision making narrative: 51 yo male with hx of hep c opiate use disorder, cosntipation, hematuria, hep c, intermittent pedal edema took lasix 4 days 02/16 - hx of same in past likely due to cirrhosis vs frequent walking - will obtain CXR, US to r/o DVT if all negative, repeat lasxi dose and compression stockings. Lab Data Result diagrams: 03/01/22 08:32 03/01/22 08:32 Labs: Lab Results 03/01/22 03/01/22 03/01/22 Range/Units 08:32 08:32 08:32 WBC 7.7 (4.8-10.8) X10*3/uL RBC 3.89 L (4.60-5.80) X10*6/uL Hgb 11.6 L (14.0-18.0) g/dl Hct 35.7 L (42.0-52.0) % MCV 91.8 (80.0-98.0) fL MCH 29.8 (27.0-33.0) pg MCHC 32.5 (31.0-36.0) g/dl RDW 13.5 (11.0-16.0) % Plt Count 140 L (160-400) X10*3/uL MPV 10.9 (9.4-12.4) fL Immature Gran % (Auto) 0.3 (0.0-0.4) % Neut % (Auto) 64.6 (45-73) % Lymph % (Auto) 24.7 (20-40) % [place] % (Auto) 6.9 (2-11) % Eos % (Auto) 3.4 (0-4) % Baso % (Auto) 0.1 (0-2) % Lymph # (Auto) 1.9 (1.2-4.9) X10*3/uL [place] # (Auto) 0.5 (0.1-1.2) X10*3/uL Eos # (Auto) 0.3 (0.0-0.4) X10*3/uL Baso # (Auto) 0.0 (0.0-0.2) X10*3/uL Abs Immat Gran (auto) 0.02 (0.00-0.03) X10*3/uL Absolute Neuts (auto) 5.0 (2.0-8.3) x10*3/uL Absolute Nucleated RBC 0.000 (0.0-0.012) X10*3/uL Nucleated RBC % (auto) 0.0 (0.0-0.2) /100WBC Sodium 139 (135-145) mmol/L Potassium 4.4 (3.3-5.1) mmol/L Chloride 107 (96-108) mmol/L Carbon Dioxide 27 (22-29) mmol/L Anion Gap 9 L (12-20) BUN 18 H (9-16) mg/dL Creatinine 1.29 (0.5-1.4) mg/dL Estim Creat Clear Calc 70.1 Estimated GFR 58 Random Glucose 120 H D (60-115) mg/dL Calcium 9.0 (8.4-10.2) mg/dL Troponin I High Sens < 3.5 (<3.5-35.0) ng/L B-Natriuretic Peptide 76 (<100) pg/mL ECG Data Attestation EKG: I personally reviewed and interpreted this ECG as follows: ECG interpretation date: 03/01/22 ECG interpretation time: 09:14 Interpretation: Rate: 50 Rhythm: sinus bradycardia [place]: normal Normal P waves. Normal VENANCIO. Normal QRS complex. ST T wave : normal no MARKUS qTC: normal prior studies: no acute ischemia The study has been interpreted contemporaneously by me. Discharge Plan Discharge Clinical Impression: Pedal edema Patient Disposition: Home, Self-Care Instructions: Leg Edema (ED) Additional Instructions: return to ED for any worsening symptoms or concerns wear compression stockings keep legs elevated no blood clots on exam Prescriptions: New (DME) miscellaneous medical supply Misc See Rx Instructions .Route Qty: 4 0RF Rx Instructions: As directed furosemide [Lasix] 20 mg tablet 20 mg PO DAILY Qty: 3 0RF Rx Instructions: start on 03/02 No Action Vosevi 400-100-100 mg tablet 1 tab PO DAILY 28 Days Qty: 28 2RF Rx Instructions: Take one tablet by mouth daily for twelve weeks total; must administer with a meal/food bisacodyl [Dulcolax (bisacodyl)] 5 mg tablet,delayed release (DR/EC) 10 mg PO ONCE 1 Days Qty: 2 0RF Rx Instructions: Take 2 tablets at 12:00pm the day before your procedure, bowel prep polyethylene glycol 3350 [Miralax] 17 gram/dose powder 238 g PO ONCE 1 Days Qty: 238 0RF Rx Instructions: Take as directed by mouth, bowel prep methadone 40 mg tablet,soluble 50 mg PO DAILY 0RF CertaVite Senior 0.4-300-250 mg-mcg-mcg tablet 1 tab PO QAM 0RF folic acid 1 mg tablet 1 mg PO QAM 0RF thiamine HCl (vitamin B1) 100 mg tablet 100 mg PO QAM 0RF olanzapine 2.5 mg tablet 2.5 mg PO BEDTIME 0RF buprenorphine-naloxone [Suboxone] 8-2 mg film 2 film sublingual DAILY 14 Days Qty: 28 0RF Rx Instructions: place 1 strip/tab under (each) side of tongue bisacodyl [Dulcolax (bisacodyl)] 5 mg tablet,delayed release (DR/EC) 10 mg PO BEDTIME 2 Days Qty: 4 0RF albuterol sulfate 90 mcg/actuation HFA aerosol inhaler 2 puff PO Q4-6H PRN0RF Linzess 145 mcg capsule 145 mcg PO QAM 30 Days Qty: 30 6RF duloxetine 30 mg capsule,delayed release(DR/EC) 30 mg PO DAILY 0RF gabapentin 300 mg capsule 300 mg PO TID 0RF diclofenac sodium 1 % gel 2 g topical QID 0RF Arthritis Pain Relief(capsaic) 0.075 % cream topical TID 0RF Referrals: [place],[facility] [Primary Care Provider] - 5 days (if not better)
[2022-03-01] MEDS: Furosemide 20 MG TABLET PO (09:32)
[2022-03-01 11:12] VITALS: BP 120/62; PULSE 46; RESP 15; TEMP 36.4; O2SAT 98
[2022-03-01 11:36] LABS: Alanine Aminotransferase 31 U/L (0-40); Alkaline Phosphatase 68 U/L (39-117); Aspartate Amino Transferase 38 U/L (5-37); Bilirubin Direct 0.2 mg/dL (0.0-0.5); Bilirubin Total 0.5 mg/dL (0.0-1.0); Total Protein 6.6 g/dL (6.5-8.0)
== END 2022-03-01 11:31 | disposition home or self-care (01) ==
PROVIDERS: Emergency Provider Emergency Medicine
DX: R60.0 Localized edema (principal); Z79.899 Other long term (current) drug therapy; F17.210 Nicotine dependence, cigarettes, uncomplicated; Z71.6 Tobacco abuse counseling
CPT/HCPCS: 36415; 71045; 80048; 80076; 83880; 84484; 85025; 93005; 93970; 99284

== ENCOUNTER 2022-03-08 10:26 | Outpatient (REF) | payer MEDICAID, SELFPAY ==
--- NOTE | ~2022-03-08 | US_ITS ---
EXAMINATION: US VENOUS ULTRASOUND WITH DOPPLER LOWER EXTREMITY, BILATERAL CLINICAL INFORMATION: Pain and swelling COMPARISON: Previous exam 03/01/2022 TECHNIQUE: Ultrasound of the deep veins is performed from the hip to the calf with compression sonography and color and pulse Doppler assessment. Spectral analysis with color-flow imaging is performed. FINDINGS: RIGHT: There is normal venous compression and respiratory variation and augmented flow. The visualized common femoral vein, superficial femoral vein, profunda femoral vein, popliteal vein, and the trifurcation region shows no evidence of deep venous thrombosis. There is no significant popliteal fossa cyst. LEFT: There is normal venous compression and respiratory variation and augmented flow. The visualized common femoral vein, superficial femoral vein, profunda femoral vein, popliteal vein, and the trifurcation region shows no evidence of deep venous thrombosis. There is no significant popliteal fossa cyst. US/US venous duplex LE BI IMPRESSION: No DVT demonstrated in the bilateral lower extremity.
== END 2022-03-08 10:27 | disposition home or self-care (01) ==
LOC: HO.US 10:26
PROVIDERS: Visit Provider Emergency Medicine
DX: R60.0 Localized edema (principal)
CPT/HCPCS: 93970

== ENCOUNTER → 2022-04-11 12:15 | Outpatient (BNVA) | payer MEDICAID, SELFPAY | PROVIDERS: PCP Emergency Medicine; Referring Provider Emergency Medicine; Visit Provider Internal Medicine Cardiovascular Disease | DX: R07.2 Precordial pain (principal) | CPT/HCPCS: 99202 ==

== ENCOUNTER 2022-07-06 15:12 | Outpatient (REF) | payer MEDICAID, SELFPAY ==
--- NOTE | ~2022-07-06 | XR_ITS ---
EXAMINATION: XR FOOT, RIGHT CLINICAL INFORMATION: Spur right foot. COMPARISON: None TECHNIQUE: AP, lateral, and oblique views of the right foot. FINDINGS: There is no evidence of acute fracture or dislocation of the right foot. Right foot joint spaces are maintained. There is some irregularity to the plantar aspect of the calcaneus at site of insertion of the plantar tendon without significant spur formation. No adjacent edematous change is appreciated. XR/XR foot RT min 3V IMPRESSION: No significant calcaneal spur appreciated. No acute fracture or dislocation of the right foot.
== END 2022-07-06 15:13 | disposition home or self-care (01) ==
LOC: HO.XRAY 15:12
PROVIDERS: Absent Provider Registered Nurse; PCP Registered Nurse; Visit Provider Student in an Organized Health Care Education/Training Program
DX: M77.31 Calcaneal spur, right foot (principal)
CPT/HCPCS: 73630

== ENCOUNTER → 2022-07-14 08:07 | Outpatient (REF) | payer MEDICAID, SELFPAY ==
--- NOTE | ~2022-07-14 | NM_ITS ---
Lexiscan Myocardial perfusion study Indication: Chest pain, assess for coronary disease ischemia Technique: The patient was brought in for a Lexiscan perfusion study on 07/14/2022 and was injected 0.4 mg of Lexiscan intravenously. Within a minute of this injection 30 mCi of sestamibi was given intravenously. Images were obtained using the SPECT gamma camera interlaced with the gating device. Images were obtained in supine position. Resting perfusion study was performed on 07/19/2022. Patient was administered 30 mCi of sestamibi intravenously at rest. Images were then obtained in supine position. Total DLP 89mGy-cm. Images were processed with the software and compared side to side in short axis, horizontal long axis and vertical long axis views. Findings: Raw acquisition reviewed. The stress perfusion study showed mildly diminished tracer uptake in the distal part of inferior wall. No significant change with CT attenuation correction. The gated study shows normal LV systolic function with calculated LVEF of 60%. LV cavity is normal in size. The gated study shows normal wall thickening and contraction of segments. Resting study shows no significant perfusion abnormality. Gating at rest reveals normal wall motion with ejection fraction at 57%. The findings are consistent with mild reversible inferoapical defect likely from diaphragmatic attenuation artifact. NM/NM katy perf SPECT rest & str Impression: 1. Myocardial perfusion imaging study shows no clear evidence of any ischemia or infarction. Likely normal myocardial perfusion. 2. Gated LVEF is 60% during stress and 57% during rest. 3. Transient ischemic dilatation not present. EKG component of the test reported separately.
--- NOTE | 2022-07-14 08:44 | CA_ITS ---
Acquisition Time: 2022-07-14 09:24:06 Total Exercise Time: 00:02:00 Test Indications: Dyspnea Medications: METHADONE Protocol: LEXISCAN Max HR: 069 BPM 41% of Pred: 167 BPM Max BP: 120/078 mmHG Max Work Load: 1.0 METS Pharmacological stress test with Lexiscan injection, while sitting and kicking his legs, without anginal symptoms, without arrythmia, with normotensive response to injection, with nondiagnostic EKG for ischemia. Nuclear images pending. Test reviewed with Dr Kam Referred By: Danny Deleon Overread By: ZENY CASTILLO
== END ==
LOC: HO.CARD 08:07
PROVIDERS: PCP Registered Nurse; Visit Provider Internal Medicine Cardiovascular Disease
DX: R07.2 Precordial pain (principal)
CPT/HCPCS: 78452; 93017; A9500; J0280; J2785

== ENCOUNTER 2023-07-16 08:13 | Outpatient (REF) | payer MEDICAID, SELFPAY ==
[2023-07-16 11:17] LABS: MANUAL DIFF FLAG NO
[2023-07-16 11:35] LABS: Basophils Percent Auto 0.3 % (0-2); Eosinophils Absolute Auto 0.2 X10*3/uL (0.0-0.4); Eosinophils Percent Auto 1.9 % (0-4); Hematocrit 39.9 % (42.0-52.0); Imm Gran Abs Auto 0.05 X10*3/uL (0.00-0.03); Imm Gran Pct Auto 0.4 % (0.0-0.4); Lymphocytes Absolute Auto 1.5 X10*3/uL (1.2-4.9); Lymphocytes Percent Auto 12.5 % (20-40); Mean Corpuscular HGB Conc 32.6 g/dl (31.0-36.0); Mean Corpuscular Hemoglobin 29.5 pg (27.0-33.0); Mean Corpuscular Volume 90.5 fL (80.0-98.0); Mean Platelet Volume 11.5 fL (9.4-12.4); Monocytes Absolute Auto 0.6 X10*3/uL (0.1-1.2); Monocytes Percent Auto 5.4 % (2-11); Neutrophils Absolute Auto 9.2 x10*3/uL (2.0-8.3); Neutrophils Percent Auto 79.5 % (45-73); Platelet Count 166 X10*3/uL (160-400); Red Blood Count 4.41 X10*6/uL (4.60-5.80); Red Cell Distribution Width 13.2 % (11.0-16.0); White Blood Count 11.6 X10*3/uL (4.8-10.8)
[2023-07-16 12:28] LABS: Alanine Aminotransferase 24 U/L (0-40); Albumin Level 4.1 g/dL (3.5-5.0); Alkaline Phosphatase 55 U/L (39-117); Anion Gap 12 (12-20); Aspartate Amino Transferase 32 U/L (5-37); Bilirubin Total 0.3 mg/dL (0.0-1.0); Blood Urea Nitrogen 12 mg/dL (9-16); Calcium 9.3 mg/dL (8.4-10.2); Carbon Dioxide 25 mmol/L (22-29); Chloride 107 mmol/L (96-108); Estimated Glomerular Filt Rate > 60; Glucose Random 95 mg/dL (60-115); Potassium 4.6 mmol/L (3.3-5.1); Sodium 139 mmol/L (135-145); Total Protein 7.5 g/dL (6.5-8.0)
[2023-07-17 14:17] LABS: HCV Log PCR <1.18 NOT DETECTED Log IU/mL (NOT DETECTED); HepC Viral Load <15 NOT DETECTED IU/mL (NOT DETECTED)
== END 2023-07-16 08:14 | disposition home or self-care (01) ==
LOC: HO.HHCL 08:13
PROVIDERS: Visit Provider Registered Nurse
DX: B18.2 Chronic viral hepatitis C (principal)
CPT/HCPCS: 36415; 80053; 85025; 87522

== ENCOUNTER → 2023-08-14 08:58 | Outpatient (BNVA) | payer MEDICAID, SELFPAY | PROVIDERS: PCP Registered Nurse; Visit Provider Surgery ==

== ENCOUNTER 2023-08-14 09:00 | Outpatient (AMB) | payer MEDICAID, SELFPAY ==
[2023-08-14 09:03] VITALS: BP 125/69; PULSE 62; BMI 32.3
--- NOTE | 2023-08-14 09:03 | A.OFFVIS_ITS ---
Intake Vital Signs 08/14/23 09:03 Height 5 ft 6 in Weight 200 lb BMI 32.3 BP 125/69 Blood Pressure Location Rt brachial Position Sitting Pulse 62 Intake Visit Reasons: Ventral hernia Intake Note: Patient referred for ventral hernia. Reports hernia present since 1981. C/o pain, discomfort. Hernia has tripled in size. 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 HPI HPI Comments History of Present Illness Details Patient presents for evaluation of a ventral hernia. This started out quite small just above his umbilicus back in the 80s and increased in size over the many years. 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 He has no other GI issues or complaints. He is tolerating a diet having normal bowel habits. Chart was reviewed patient evaluate [facility] Medical History Disc degeneration, lumbar Spondylosis of lumbar region without myelopathy or radiculopathy Chronic pain syndrome Postlaminectomy syndrome Hepatitis C antibody positive in blood Opioid use disorder Substance abuse Depression Asthma Surgical History Hx of colonoscopy Back pain with history of spinal surgery Family History (Updated 08/14/23 @ 09:07 by CHRIS Demarco) Family/Other Family history of asthma Mother Family history of asthma Colon cancer Social History (Updated 08/14/23 @ 09:08 by CHRIS Demarco) Household Members: Family Household Members Other:: sister Alcohol intake: current Alcohol intake frequency: a few times a month Tobacco use type: Cigarette Cigarette Packs Per Day: 0.5 Cigarettes Per Day: 10 Current occupational status: unemployed Physical Exam Vital Signs: Last Vital Signs Pulse 62 08/14/23 09:03 BP 125/69 08/14/23 09:03 BMI result Body Mass Index 32.3 Chest Other: Chest breath sounds bilaterally, HS 1 in 2 GI Other: Mildly corpulent abdomen. Patient was examined supine. Abdomen soft. Moderately sized supraumbilical ventral hernia with large reducible sac Assessment & Plan Assessment & Plan (1) Ventral hernia: Code(s): K43.9 - Ventral hernia without obstruction or gangrene Plan Risks, benefits, alternatives of ventral hernia repair open technique with mesh were reviewed the patient included but not limited to bleeding, infection, recurrence, numbness, pain, scarring, bowel injury or leak and the patient wishes to proceed. All questions were answered. Arrangements made for this. Also discussed with the patient that he will need to be relatively sedentary for 4-6 weeks postprocedure to allow healing before he recommends is construction type work. Coding Level of Care Code New Pt Level 5 (01035) Diagnoses Ventral hernia K43.9
== END 2023-08-14 09:12 | disposition home or self-care (01) ==
PROVIDERS: PCP Registered Nurse; Visit Provider Surgery
DX: K43.9 Ventral hernia without obstruction or gangrene (principal)
CPT/HCPCS: 99204

== ENCOUNTER 2023-08-31 15:27 | Outpatient (REF) | payer MEDICAID, SELFPAY ==
[2023-08-31 16:48] LABS: TSH reflex Free T4 1.99 uIU/mL (0.32-4.0)
[2023-08-31 17:04] LABS: Folate 7.2 ng/mL (> or = 4.0); Vitamin B12 599 pg/mL (200-900)
== END 2023-08-31 15:28 | disposition home or self-care (01) ==
LOC: HO.HHCL 15:27
PROVIDERS: Visit Provider Registered Nurse
DX: R20.0 Anesthesia of skin (principal); R20.2 Paresthesia of skin
CPT/HCPCS: 36415; 82607; 82746; 84443

== ENCOUNTER 2023-09-13 06:38 | Day surgery (SDC) | payer MEDICAID, SELFPAY ==
[2023-09-10 10:29] VITALS: BMI 32.3
[2023-09-13] VITALS (9 sets, daily range): BP systolic 92–139; BP diastolic 49–71; PULSE 65–75; RESP 12–20; TEMP 36.6; O2SAT 93–98
[2023-09-13] MEDS: Lactated Ringers 1,000 ML 50 ML IVCONT (07:18)
--- NOTE | 2023-09-13 07:24 | MHC.SHP ---
Pre-Procedural Eval Section A Date of Service: 09/13/23 The patient is an INPATIENT: No Changes since office visit: No Cold of Flu in the past 2 weeks, No New Medical Problems, No Changes in Medication and No Patient answered all questions The History & Physical has been completed within 30 days and I have reviewed it.: Yes Section B Chief Complaint: Ventral hernia without obstruction or gangrene Allergies: Allergies Allergy/AdvReac Type Severity Reaction Status Date / Time Penicillins [PENICILLINS] Allergy Unknown MY TOUNGE Verified 08/14/23 09:05 TWISTS. Plan I have reviewed the history and physical and performed a pertinent physical examination on my patient. No changes have occurred unless specified. Time Spent With Patient Time: Total time managing care of this patient today ____ minutes.
--- NOTE | 2023-09-13 08:52 | HO.ANESPROP2 ---
HPI - Anesthesia Eval Consult details Narrative: 53 M for hernia repair PMFSH Active Problems Active Problems: All Active Problems (Updated 04/11/22 @ 13:40 by Danny Deleon MD) Ventral hernia (Acute) Precordial pain (Acute) Disc degeneration, lumbar (Acute) Spondylosis of lumbar region without myelopathy or radiculopathy (Acute) Chronic pain syndrome (Acute) Postlaminectomy syndrome (Acute) Hematuria (Acute) Severe needle phobia (Acute) Colon cancer screening (Acute) Chronic idiopathic constipation (Acute) Opioid use disorder (Acute) Hepatitis C antibody positive in blood (Acute) Past Medical History Medical History Disc degeneration, lumbar Spondylosis of lumbar region without myelopathy or radiculopathy Chronic pain syndrome Postlaminectomy syndrome Hepatitis C antibody positive in blood Opioid use disorder Substance abuse Depression Asthma Functional capacity: independent ambulation Family History Family History Family/Other Family history of asthma Mother Family history of asthma Colon cancer Family history of problems with anesthesia: No Surgical History Surgical History Ventral hernia (09/13/23) Hx of colonoscopy Back pain with history of spinal surgery History of Problems with Anesthesia: No Social History Household Members: Family Household Members Other:: sister Alcohol intake: current Alcohol intake frequency: does not drink Patient Tobacco Use Status: Current everyday Tobacco user Tobacco use type: Cigarette Cigarette Packs Per Day: 0.5 Cigarettes Per Day: 10 Current occupational status: unemployed Meds Allergies Allergy/AdvReac Type Severity Reaction Status Date / Time Penicillins [PENICILLINS] Allergy Unknown MY TOUNGE Verified 09/21/23 09:26 TWISTS. Active Medications: Current Medications Lactated Ringer's (Lr) 1,000 mls @ 50 mls/hr IVCONT .Q20H MELVI Last Admin: 09/13/23 07:18 Dose: 50 mls/hr Home Medications Medication Instructions Recorded Confirmed Last Taken Type methadone 40 mg soluble tablet 50 mg PO DAILY 02/22/21 04/11/22 09/13/23 05:00 History albuterol sulfate 90 mcg/actuation 2 puff PO Q4-6H PRN 03/04/21 04/11/22 Unknown History aerosol inhaler capsaicin 0.075 % topical cream appl topical TID 12/12/21 04/11/22 Unknown History (Arthritis Pain Relief (capsaicin)) diclofenac sodium 1 % topical gel 2 g topical QID 12/12/21 04/11/22 Unknown History Exam Exam Date and Time: September 13, 2023 0852 Height,Weight and Vital Signs: Height 5 ft 6 in Weight 90.718 kg Last Vital Signs Temp 98 F 09/13/23 07:03 Pulse 65 09/13/23 07:03 Resp 20 09/13/23 07:03 BP 139/71 09/13/23 07:03 Pulse Ox 97 09/13/23 07:03 O2 Del Method Room Air 09/13/23 07:03 Narrative Narrative: Date of Service: 03/01/22 Procedure(s): ECG 12 lead EKG Vent. Rate : 050 BPM Atrial Rate : 050 BPM P-R Int : 198 ms QRS Dur : 106 ms QT Int : 486 ms P-R-T Axes : 036 006 012 degrees QTc Int : 443 ms Sinus bradycardia Otherwise normal ECG No previous ECGs available Date of Service: 07/14/22 Lexiscan Myocardial perfusion study Impression: 1. Myocardial perfusion imaging study shows no clear evidence of any ischemia or infarction. Likely normal myocardial perfusion. 2. Gated LVEF is 60% during stress and 57% during rest. 3. Transient ischemic dilatation not present. EKG component of the test reported separately. Airway Mallampati Class: III Assessment and Plan Assessment Anesthesia Assessment: Anesthesia Plan Discussed and Chart Reviewed Final Anesthetic Review Family History of Problems with Anesthesia: No History of Problems with Anesthesia: No NPO: Yes ASA Class: III Final Preanesthetic Review: Meds/Allgs Chart Reviewed, Consent Obtained/Reviewed and Anes Risks/Benef Reviewed Patient Risk: Intermediate Procedure Risk: Intermediate Anesthetic Plan Anesthetic Plan: GA and Agree w/ Assess. and Plan Disposition: Standard PACU
--- NOTE | 2023-09-13 09:43 | W.PM.OPN ---
Operative Note Operative Note Date of Service: 09/13/23 Narrative: Preoperative diagnosis: [] Incarcerated supraumbilical ventral hernia Postop diagnosis: [] Same Procedure [] open repair supraumbilical ventral hernia with Bard mesh Surgeon: [] Christopher Architectural Drafting Instructor: [] Fortunato Type of Anesthesia: [] General Indication for surgery: [] Incarcerated supraumbilical ventral hernia with omental contents. Findings: [] Patient brought to the operating room, placed on operative table in supine position, after adequate level of general anesthesia was induced, the patient's abdomen which was moderately corpulent was prepped and draped in usual sterile fashion. Using a supraumbilical incision over the hernia question, this carried down through skin, subcutaneous tissue, down to the hernia sac. Large hernia was dissected down the fascia and sac was opened and omental contents and sac were amputated using Bovie. Fascia margins were clear. A Bard mesh was placed in this defect and the superficial layer of the mesh was circumferentially sutured to the surrounding fascia using interrupted 0 Ethibond suture. At completion the procedure, mesh was in good position with no gaps or tension. Was irrigated, secured hemostasis, and closed using interrupted inverted dermal 3-0 Vicryl sutures followed by Steri-Strips and sterile dressings. Wounds were infiltrated 0.5% Marcaine/1% lidocaine. Sponge, needle, instrument counts reported to be correct. Patient tolerated the procedure well and emerged anesthesia stable condition. EBL minimal
== END 2023-09-13 12:18 | disposition home or self-care (01) ==
PROVIDERS: PCP Registered Nurse; Visit Provider Surgery
PROC: (CPT 49594; principal; 2023-09-13 10:10)
DX: K43.6 Other and unspecified ventral hernia with obstruction, without gangrene (principal); Z88.0 Allergy status to penicillin; G89.29 Other chronic pain; M96.1 Postlaminectomy syndrome, not elsewhere classified; J45.909 Unspecified asthma, uncomplicated; F32.A Depression, unspecified; Z79.899 Other long term (current) drug therapy; F11.90 Opioid use, unspecified, uncomplicated; F17.210 Nicotine dependence, cigarettes, uncomplicated
CPT/HCPCS: 49594; 88302; C1781; J1100; J1170; J2250; J2405

== ENCOUNTER → 2023-09-13 06:38 | Outpatient (BNV) | payer MEDICAID, SELFPAY | PROVIDERS: PCP Registered Nurse; Visit Provider Surgery | DX: K43.9 Ventral hernia without obstruction or gangrene (principal) | CPT/HCPCS: 49594 ==

== ENCOUNTER 2023-09-21 09:15 | Outpatient (AMB) | payer MEDICAID, SELFPAY ==
--- NOTE | 2023-09-21 09:24 | A.OFFVIS_ITS ---
Intake Vital Signs 09/21/23 09:25 Weight 196 lb BP 135/77 Blood Pressure Location Rt brachial Position Sitting Pulse 63 Intake Visit Reasons: S/P supra-umbilical ventral hernia w/mesh Intake Note: Patient here s/p spra umbilical ventral hernia w/mesh. Reports incision feels itchy. Denies bleeding, oozing. Taking rx pain meds as needed. 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 HPI HPI Comments History of Present Illness Details Patient presents for follow-up. He has minimal incisional discomfort. He is increasing his activity level. He is tolerating his diet. He is having regular bowel habits. [facility] Medical History Disc degeneration, lumbar Spondylosis of lumbar region without myelopathy or radiculopathy Chronic pain syndrome Postlaminectomy syndrome Hepatitis C antibody positive in blood Opioid use disorder Substance abuse Depression Asthma Surgical History Ventral hernia (09/13/23) Hx of colonoscopy Back pain with history of spinal surgery Family History Family/Other Family history of asthma Mother Family history of asthma Colon cancer Social History Household Members: Family Household Members Other:: sister Alcohol intake: current Alcohol intake frequency: does not drink Patient Tobacco Use Status: Current everyday Tobacco user Tobacco use type: Cigarette Cigarette Packs Per Day: 0.5 Cigarettes Per Day: 10 Current occupational status: unemployed Physical Exam Vital Signs: Last Vital Signs Pulse 63 09/21/23 09:25 BP 135/77 09/21/23 09:25 GI Other: Abdomen soft. Wound clean dry and intact healing uneventfully Assessment & Plan Assessment & Plan (1) Ventral hernia: Onset Date: 09/13/23 Comment: Dr. Moiz White Code(s): K43.9 - Ventral hernia without obstruction or gangrene Plan Patient has been given very specific local instructions. Will let him commence work in 1 weeks time with 3 weeks light duty. He will follow-up p.r.n.. Coding Level of Care Code Global (72269) Diagnoses Ventral hernia K43.9
[2023-09-21 09:25] VITALS: BP 135/77; PULSE 63
== END 2023-09-21 09:28 | disposition home or self-care (01) ==
PROVIDERS: PCP Registered Nurse; Visit Provider Surgery
DX: K43.9 Ventral hernia without obstruction or gangrene (principal)
CPT/HCPCS: 99212

== ENCOUNTER → 2023-09-21 09:15 | Outpatient (BNVA) | payer MEDICAID, SELFPAY | PROVIDERS: PCP Registered Nurse; Visit Provider Surgery | DX: K43.9 Ventral hernia without obstruction or gangrene (principal) | CPT/HCPCS: 99212 ==

== ENCOUNTER 2023-10-18 03:23 | Emergency (ER) | payer MEDICAID, SELFPAY ==
--- NOTE | ~2023-10-18 | XR_ITS ---
EXAMINATION: XR CHEST CLINICAL INFORMATION: Cough, chest pain COMPARISON: 03/01/2022 TECHNIQUE: 2 views of the chest were obtained. FINDINGS: Lung volumes are symmetric. No focal consolidation is seen. No evidence of pneumothorax, pleural effusion, or pulmonary edema. The cardiomediastinal contour is unremarkable. No acute osseous findings are seen. XR/XR chest 2V IMPRESSION: No acute cardiopulmonary findings.
[2023-10-18 03:30] VITALS: BP 132/70; PULSE 63; RESP 17; TEMP 37.1; O2SAT 98
[2023-10-18 03:39] VITALS: BP 132/70; PULSE 63; RESP 17; TEMP 37.1; O2SAT 98; BMI 29.8
[2023-10-18 04:15] LABS: Influenza A PCR NEGATIVE (Negative); Influenza B PCR NEGATIVE (Negative); Resp Syncy Virus RNA Qual PCR NEGATIVE (Negative); SARS COV2 PCR INHOUSE NEGATIVE (Negative)
--- NOTE | 2023-10-18 05:02 | ED.URI ---
HPI - URI/Sore Throat General Chief Complaint: Upper Respiratory Symptoms Stated Complaint: flu like symp Time Seen by Provider: 10/18/23 04:19 Source: patient Mode of arrival: ambulatory History of Present Illness HPI Narrative: 53-year-old male who presents with 1 week coughing, body aches, headaches denies any fevers or nausea/vomiting. Related Data Home Medications Medication Instructions Recorded Confirmed methadone 40 mg soluble tablet 50 mg PO DAILY 02/22/21 04/11/22 albuterol sulfate 90 mcg/actuation 2 puff PO Q4-6H PRN 03/04/21 04/11/22 aerosol inhaler capsaicin 0.075 % topical cream appl topical TID 12/12/21 04/11/22 (Arthritis Pain Relief (capsaicin)) diclofenac sodium 1 % topical gel 2 g topical QID 12/12/21 04/11/22 Previous Rx's Medication Instructions Recorded miscellaneous medical supply #4 ea 03/01/22 hydrocodone 5 mg-acetaminophen 325 1 tab PO Q4-6H PRN pain #30 tabs 09/13/23 mg tablet Allergies Allergy/AdvReac Type Severity Reaction Status Date / Time Penicillins [PENICILLINS] Allergy Unknown MY TOUNGE Verified 09/21/23 09:26 TWISTS. Review of Systems Review of Systems: Pertinent positives and negatives as stated in HPI [facility] Past Medical History Source: nursing notes reviewed Medical History Disc degeneration, lumbar Spondylosis of lumbar region without myelopathy or radiculopathy Chronic pain syndrome Postlaminectomy syndrome Hepatitis C antibody positive in blood Opioid use disorder Substance abuse Depression Asthma Surgical History Ventral hernia (09/13/23) Hx of colonoscopy Back pain with history of spinal surgery Family History Family History Family/Other Family history of asthma Mother Family history of asthma Colon cancer Social History Social History Household Members: Family Household Members Other:: sister Alcohol intake: current Alcohol intake frequency: does not drink Comment: Decreased anxiety Patient Tobacco Use Status: Current everyday Tobacco user Tobacco use type: Cigarette Cigarette Packs Per Day: 0.5 Cigarettes Per Day: 10 Advance Directives: No Advance Directives Information Provided: No Current occupational status: unemployed Physical Exam Vital Signs: Vital Signs: Last Vital Signs Temp 98.8 F 10/18/23 03:39 Pulse 63 10/18/23 03:39 Resp 17 10/18/23 03:39 BP 132/70 10/18/23 03:39 Pulse Ox 98 10/18/23 03:39 O2 Del Method Room Air 10/18/23 03:39 BMI result Body Mass Index 29.8 VITAL SIGNS: Reviewed. GENERAL: Well developed, well nourished, in no acute distress. HEAD: Normocephalic/atraumatic EYES: PERRLA, EOMI EARS: Ext canals without abnormality, TMs non-bulging and non-erythematous NOSE: Nares patent bilateral OROPHARYNX: no oral lesions noted, posterior pharynx clear and non-erythematous without noted tonsillar enlargement/erythema/exudates NECK: Supple, no adenopathy LUNGS: Normal breath sounds. No adventitious sounds or accessory muscle use. SpO2<98> CARDIOVASCULAR: Regular rate and rhythm without noted murmurs ABDOMEN: Soft, non-tender, non-distended with bowel sounds. MUSCULOSKELETAL: No tenderness, deformities, or effusions noted on gross inspection. EXTREMITIES: No cyanosis, clubbing or edema. SKIN: Inspection of the skin reveals no rashes NEUROLOGIC: Alert and oriented x 4. Strength and sensation to light touch were grossly intact x 4. Medical Decision Making Medical Decision Making MDM Narrative: 53-year-old male with history and clinical presentation consistent with viral infection is likely resolving after 1 week, patient is afebrile and does not demonstrate any tachycardia/tachypnea and is oxygenating well on room air. I reviewed all investigations and viral testing is negative for influenza/RSV/COVID and chest x-ray is negative for infiltrate and otherwise my interpretation is in agreement with radiology's impression. Differential Diagnosis Differential Diagnoses: The differential diagnosis associated with the presentation includes Please see the discussion above Admission/Observation Consideration of admission/observation: Escalation of care including admission/observation considered Please see the discussion above Lab Data Labs: Lab Results 10/18/23 Range/Units 03:33 Influenza Type A (PCR) NEGATIVE (Negative) Influenza Type B (PCR) NEGATIVE (Negative) RSV RNA Qual (PCR) NEGATIVE (Negative) SARS-CoV-2 RNA (RT-PCR) NEGATIVE (Negative) Radiology Impression Discussion of test interpretation with radiology: I have reviewed the radiologist's reading. Radiologist Impression: Please see the discussion above External Record Review External record reviewed: Outpatient record and Prior outpatient labs Discharge Plan Discharge Clinical Impression: Viral syndrome Patient Disposition: Home, Self-Care Instructions: Viral Syndrome (ED) Additional Instructions: Resume all home medications as prescribed. Recommend [id number] Tylenol/ibuprofen as needed for body aches. Follow-up with primary care doctor next 1-2 days. Return to the ER for any worsening symptoms. Prescriptions: No Action (DME) miscellaneous medical supply Misc See Rx Instructions .Route Qty: 4 0RF Rx Instructions: As directed hydrocodone-acetaminophen 5-325 mg tablet 1 tab PO Q4-6H PRN (Reason: pain) Qty: 30 0RF Rx Instructions: Partial Fill upon patient request. methadone 40 mg tablet,soluble 50 mg PO DAILY albuterol sulfate 90 mcg/actuation HFA aerosol inhaler 2 puff PO Q4-6H PRN diclofenac sodium 1 % gel 2 g topical QID Arthritis Pain Relief(capsaic) 0.075 % cream topical TID Referrals: [facility] [Primary Care Provider] - Interventions: ED Discharge Assessment Last Done: 10/18/23 05:40 Discharge Date/Time: 10/18/23 05:40
== END 2023-10-18 05:40 | disposition home or self-care (01) ==
PROVIDERS: Emergency Provider Student in an Organized Health Care Education/Training Program
DX: B34.9 Viral infection, unspecified (principal); R05.9 Cough, unspecified; R51.9 Headache, unspecified; R07.89 Other chest pain; F17.210 Nicotine dependence, cigarettes, uncomplicated; Z71.6 Tobacco abuse counseling; Z20.822 Contact with and (suspected) exposure to COVID-19; Z20.828 Contact with and (suspected) exposure to other viral communicable diseases
CPT/HCPCS: 0241U; 71046; 99282; 99283

== ENCOUNTER 2023-10-31 12:00 | Outpatient (REF) | payer MEDICAID, SELFPAY ==
--- NOTE | ~2023-10-31 | XR_ITS ---
EXAMINATION: XR CHEST CLINICAL INFORMATION: Productive cough and chills COMPARISON: 10/18/2023 and 01/20/2020 chest radiographs TECHNIQUE: 2 views of the chest were obtained. FINDINGS: No significant abnormality is noted involving the heart, lungs, mediastinum, or soft tissues. Mild rightward curvature of the spine. XR/XR chest 2V IMPRESSION: No acute cardiopulmonary disease.
[2023-10-31 14:03] LABS: Alanine Aminotransferase 32 U/L (0-40); Alkaline Phosphatase 69 U/L (39-117); Anion Gap 12 (12-20); Aspartate Amino Transferase 33 U/L (5-37); Bilirubin Total 0.2 mg/dL (0.0-1.0); Blood Urea Nitrogen 12 mg/dL (9-16); Calcium 9.2 mg/dL (8.4-10.2); Carbon Dioxide 24 mmol/L (22-29); Chloride 106 mmol/L (96-108); Estimated Glomerular Filt Rate > 60; Glucose Random 83 mg/dL (60-115); Magnesium 2.2 mg/dL (1.6-2.6); Potassium 4.4 mmol/L (3.3-5.1); Sodium 138 mmol/L (135-145); Total Protein 7.6 g/dL (6.5-8.0)
== END 2023-10-31 12:01 | disposition home or self-care (01) ==
LOC: HO.HHCL 12:00
PROVIDERS: Visit Provider Registered Nurse
DX: R05.2 Subacute cough (principal); R60.0 Localized edema
CPT/HCPCS: 36415; 71046; 80053; 83735

== ENCOUNTER 2023-12-21 10:27 | Outpatient (AMB) | payer MEDICAID, SELFPAY ==
--- NOTE | 2023-12-21 10:57 | A.OFFVIS_ITS ---
Intake Intake Visit Reasons: LDCT [place] Allergies Penicillins [PENICILLINS] Allergy (Unknown, Verified 09/21/23 09:26) MY TOUNGE TWISTS. HPI HPI Comments History of Present Illness Details Yan is a pleasant 53 year old male, current smoker with a 52 PYH. Patient has been smoking since age 11 for 42 years at 1-1.5 ppd. Denies marijuana use. Admits exposure to iron dust. Admits second hand smoke exposure. Reports mother with lung cancer. Denies personal history of cancers. Denies chest CT in last year. Denies recent travel outside the [place]. Admits testing positive for COVID. Admits receiving COVID Vaccine. Denies fever, chills, chest pain, new cough, hemoptysis or unintentional weight loss. Lung Cancer Screening Questionnaire reviewed with patient by provider. Shared Decision Making Completed. Discussed in detail with patient, the risk versus benefit of LDCT screening. Patient in agreement of proceeding with scan. [facility] Medical History Disc degeneration, lumbar Spondylosis of lumbar region without myelopathy or radiculopathy Chronic pain syndrome Postlaminectomy syndrome Hepatitis C antibody positive in blood Opioid use disorder Substance abuse Depression Asthma Surgical History Ventral hernia (09/13/23) Hx of colonoscopy Back pain with history of spinal surgery Family History Family/Other Family history of asthma Mother Family history of asthma Colon cancer Social History Household Members: Family Household Members Other:: sister Alcohol intake: current Alcohol intake frequency: does not drink Comment: Decreased anxiety Patient Tobacco Use Status: Current everyday Tobacco user Tobacco use type: Cigarette Cigarette Packs Per Day: 0.5 Cigarettes Per Day: 10 Current occupational status: unemployed Assessment & Plan Assessment & Plan (1) Nicotine dependence, cigarettes, uncomplicated: Code(s): F17.210 - Nicotine dependence, cigarettes, uncomplicated Plan Shared decision-making visit completed today in office. This patient meets criteria for LDCT for lung cancer screening purposes and is asymptomatic. Offered smoking cessation. Patient has been scheduled for a low dose chest CT for screening purposes at [facility]. We discussed how the results will be obtained depending on CT findings. RADS 1 and RADS 2 will receive a letter with results and will follow up for annual LDCT. Patient informed they will be contacted at later date to schedule upcoming LDCT scan. RADS 3 and RADS 4 will receive a telephone call, or an office visit after reviewing case at our Lung Cancer Conference to determine when the next LDCT will be scheduled or further interventions that may be needed. Discussed importance of screening program and compliance with yearly LDCT scan as scheduled. Risks, benefits, and alternatives were discussed in detail and patient agrees to proceed. Risks discussed include but are not limited to: radiation exposure and possibility of additional intervention for benign disease. Benefits include detection of lung cancer at an early stage. A copy of today's visit and LDCT results will be sent to patient's PCP. Incidental findings on LDCT are PCP's responsibility. If there are incidental findings, our office will ensure that PCP office is aware of these findings. All questions were answered and patient is in agreement of plan. Coding Level of Care Code Lung Cancer Screening G0296 Diagnoses Nicotine dependence, cigarettes, uncomplicated F17.210
== END 2023-12-21 11:05 | disposition home or self-care (01) ==
PROVIDERS: PCP Registered Nurse; Referring Provider Registered Nurse; Visit Provider Nurse Practitioner Family
DX: F17.210 Nicotine dependence, cigarettes, uncomplicated (principal)
CPT/HCPCS: G0296

== ENCOUNTER 2023-12-21 11:06 | Outpatient (REF) | payer MEDICAID, SELFPAY ==
--- NOTE | ~2023-12-21 | CT_ITS ---
EXAMINATION: CT CHEST SCREENING CLINICAL INFORMATION: Current smoker 21 pack year history. COMPARISON: No previous chest CTs. 10/31/2023 chest radiograph TECHNIQUE: Multidetector volumetric CT imaging of the chest is performed without contrast using low dose technique. Additional 2D coronal and sagittal reformatted images and axial 3D maximum intensity projection (MIP) images are generated on the CT workstation. This CT examination was performed using dose optimization techniques as appropriate, variously including the following: *Automated exposure control *Adjustment of mA and/or kV according to patient size (this includes techniques or standardized protocols for targeted exams where dose is matched to indication/reason for exam; i.e. extremities or head) *Use of iterative reconstruction technique DLP: 52 mGy-cm FINDINGS: INSTRUMENT CHECKER: No acute cardiopulmonary disease. LUNGS: Trachea and bronchi are patent. Diffuse mild bronchial wall thickening. No consolidations, groundglass opacities or suspicious lung nodules. MEDIASTINUM: No thyroid abnormality appreciated. No pathologic lymphadenopathy. Nonenlarged heart. No pericardial effusion. Nonaneurysmal aorta. Nonenlarged pulmonary arteries. CORONARY ARTERY CALCIFICATION: Minimal. PLEURA: There is no pleural effusion. No pleural mass or thickening. AXILLA: No lymphadenopathy. UPPER ABDOMEN: Fecal retention. OSSEOUS STRUCTURES: No suspicious osseous lesions. CT/CT lung screening IMPRESSION: Unremarkable examination. ASSESSMENT: Lung-RADS category 1: Negative RECOMMENDATION: Routine annual low-dose CT screening in 12 months.
== END 2023-12-21 11:07 | disposition home or self-care (01) ==
LOC: HO.CT 11:06
PROVIDERS: Visit Provider Nurse Practitioner Family
DX: Z12.2 Encounter for screening for malignant neoplasm of respiratory organs (principal); F17.200 Nicotine dependence, unspecified, uncomplicated
CPT/HCPCS: 71271; G0296

== ENCOUNTER 2024-03-10 19:14 | Emergency (ER) | payer MEDICAID, SELFPAY ==
[2024-03-10 19:17] VITALS: BP 123/79; PULSE 78; RESP 16; TEMP 36.8; O2SAT 96; BMI 27.4
--- NOTE | 2024-03-10 19:18 | ED_ITS ---
HPI - Back Pain/Injury General Chief Complaint: Back Pain/Injury Stated Complaint: shooting pain down left leg Time Seen by Provider: 03/10/24 19:18 Source: patient Mode of arrival: ambulatory Limitations: no limitations History of Present Illness HPI Narrative: 53 yo male with past medical history asthma, OUD on methadone, previous back surgery here with complaints of left sided back pain with radiation down left leg x 2 days. No injury or trauma. No numbness/tingling. No numbness in the groin. No bowel or bladder incontinence. No fevers, chills. Has not tried any pain medication at home. Related Data Home Medications ?Medication ?Instructions ?Recorded ?Confirmed methadone 40 mg soluble tablet 50 mg PO DAILY 02/22/21 04/11/22 albuterol sulfate 90 mcg/actuation 2 puff PO Q4-6H PRN 03/04/21 04/11/22 aerosol inhaler capsaicin 0.075 % topical cream appl topical TID 12/12/21 04/11/22 (Arthritis Pain Relief (capsaicin)) diclofenac sodium 1 % topical gel 2 g topical QID 12/12/21 04/11/22 Previous Rx's ?Medication ?Instructions ?Recorded miscellaneous medical supply #4 ea 03/01/22 hydrocodone 5 mg-acetaminophen 325 1 tab PO Q4-6H PRN pain #30 tabs 09/13/ mg tablet cyclobenzaprine 10 mg tablet 10 mg PO TID PRN muscle spasm #15 03/10/24 tabs lidocaine 5 % topical patch 1 patch topical DAILY #15 ea 03/10/24 (Lidoderm) naproxen 500 mg tablet 500 mg PO BID PRN pain #30 tabs 03/10/24 prednisone 20 mg tablet 40 mg (2 x 20 mg) PO DAILY #10 tabs 03/10/24 Allergies Allergy/AdvReac Type Severity Reaction Status Date / Time Penicillins [PENICILLINS] Allergy Unknown MY TOUNGE Verified 03/10/24 19:22 TWISTS. Review of Systems Review of Systems: Yes all other systems are reviewed and are negative Constitutional: Constitutional: Reports no additional constitutional complaints, Denies body ache(s), Denies chills, Denies fever(s), Denies headache(s) and Denies weakness Eyes: Eyes: Reports no additional eye complaints and Denies change in vision ENT: Reports system reviewed and no additional complaints, except as doc umented, Denies dizziness, Denies headache(s), Denies nasal congestion, Denies nasal discharge and Denies neck pain Cardiovascular: Cardiovascular: Reports no additional cardiovascular complaints, Denies chest pain, Denies leg edema and Denies dyspnea Respiratory: Respiratory: Reports no additional respiratory complaints, Denies cough and Denies dyspnea Gastrointestinal: Gastrointestinal: Reports no additional gastrointestinal complaints, Denies abdominal pain, Denies diarrhea, Denies nausea and Denies vomiting Genitourinary: Genitourinary: Denies urinary incontinence Musculoskeletal: Musculoskeletal: Reports no additional musculoskeletal complaints, Reports back pain, Denies arthralgias, Denies joint swelling, Denies neck pain, Denies numbness, Reports radiating pain into limb and Denies tingling Integumentary/Breasts: Skin/Breast: Reports system reviewed and no additional complaints, except as docu and Denies rash Neurologic: Reports system reviewed and no additional complaints, except as documented, Denies Abnormal speech present, Denies dizziness, Denies headache(s), Denies numbness, Denies tingling and Denies weakness PMFSH Past Medical History Attestation statement: The following information was validated with the patient. 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 Opioid use disorder Substance abuse Depression Asthma Surgical History Ventral hernia (09/13/23) Hx of colonoscopy Back pain with history of spinal surgery Family History Family History Family/Other Family history of asthma Mother Family history of asthma Colon cancer Social History Social History Household Members: Family Household Members Other:: sister Alcohol intake: current Alcohol intake frequency: does not drink Comment: Decreased anxiety Patient Tobacco Use Status: Current everyday Tobacco user Tobacco use type: Cigarette Cigarette Packs Per Day: 0.5 Cigarettes Per Day: 10 Do you have a plan to hurt others: No Plan Current occupational status: unemployed Physical Exam Vital Signs: Vital Signs: Last Vital Signs Temp 98.2 F 03/10/24 19:17 Pulse 78 03/10/24 19:17 Resp 16 03/10/24 19:17 BP 123/79 03/10/24 19:17 Pulse Ox 96 03/10/24 19:17 O2 Del Method Room Air 03/10/24 19:17 BMI result Body Mass Index 27.4 Const: General: cooperative, healthy appearing, comfortable and no acute distress Orientation/consciousness: patient oriented x3 Limitations: no limitations HEENT: Head: Yes normal to inspection Ears: hearing grossly normal bilaterally General nose exam: Normal external nose present Face and sinus: Yes normal facial exam Mouth: Normal oral and palatal mucosa present Throat: Yes posterior oropharynx normal Eyes: General: appearance normal, both eyes and all related structures Pupils: Equal, round and reactive pupils present Neck: Neck: Yes normal visual inspection Chest: Chest palpation & inspection: normal inspection of the chest Resp: Effort & Inspection: normal respiratory effort Auscultation: clear to auscultation bilaterally Cardio: Rate: regular rate Rhythm: regular rhythm Peripheral pulses: Peripheral pulses 2+ throughout GI: Inspection: Yes normal to inspection Palpation (GI): Soft to palpation and nontender Auscultation: normal bowel sounds Back/Spine/Pelvis: Other: There is tenderness on palpation to the left lumbar soft tissue and on compression of the left SI joint. There is no midline tenderness, step-offs or deformities. Pain is is worsened with flexion and extension of lumbar spine Thoracic/Lumbar Spine: thoracic and lumbar spine normal to inspection Skin: General skin exam: no rashes or lesions noted Neuro: General: patient oriented x3, moves all extremities, no focal motor deficits and normal sensation to monofilament Cranial nerves: Yes Equal, round and reactive pupils present Cognition (Neuro): normal cognition Speech: No Abnormal speech present Gait exam (Neuro): Normal gait present Motor exam (neuro): 5/5 motor strength present throughout Sensory Exam: Normal double simultaneous stimulation for sensation Deep tendon reflexes (DTR's): Right patellar reflex intensity grade: 2+ and Left patellar reflex intensity grade: 2+ Extrem: General: Yes normal to inspection Medical Decision Making Medical Decision Making MDM Narrative: 53 yo male with past medical history asthma, OUD on methadone, previous back surgery here with complaints of left sided back pain with radiation down left leg x 2 days. No injury or trauma. No numbness/tingling. No numbness in the groin. No bowel or bladder incontinence. No fevers, chills. Has not tried any pain medication at home. Pain on palpation to the left lumbar soft tissue over the left SI joint on compression with no midline tenderness, step-offs or deformities. No neuro logical deficits or red flag symptoms on exam. Exam is consistent with lumbar radiculopathy. Patient will be sent home with NSAIDs, muscle relaxants, medicated patches and prednisone course. I recommend that he follow up outpatient with his primary care doctor as he may need outpatient testing such as an MRI. Reviewed worrisome signs and symptoms of when to return to the emergency room. Comfortable plan for discharge home. Differential Diagnosis Differential Diagnoses: The differential diagnosis associated with the presentation includes Patient denies any history of IV drug abuse, immunocompromised state to suggest epidural abscess No neurological deficits or red flag symptoms to suggest cord compression, cauda equina, malignancy No trauma to suggest fracture Gradual onset so less likely AAA no urinary symptoms to suggest pyelo, renal colic Admission/Observation Consideration of admission/observation: Escalation of care including admission/observation considered No neurological deficits or red flag symptoms to suggest need for emergent MRI, urgent neurosurgery consultation and or admission or transfer Tests considered The following testing was considered but not selected: no neurological deficits or red flag symptoms to suggest need for emergent MRI Prescription Management I considered prescription management with: Pain Medication Discharge Plan Discharge Clinical Impression: Sciatica Patient Disposition: Home, Self-Care Instructions: Sciatica (ED) Additional Instructions: Heat or ice Gentle stretching No heavy lifting or bending Follow-up with primary care doctor for any continued symptoms as you may need a repeat MRI. I have also attached name of our spine doctor here at [facility]. You likely will need a referral from her primary care doctor so talked to them about that. Return for any incontinence of urine or stool, numbness in the groin, fever Prescriptions: New naproxen 500 mg tablet 500 mg PO BID PRN (Reason: pain) Qty: 30 0RF cyclobenzaprine 10 mg tablet 10 mg PO TID PRN (Reason: muscle spasm) Qty: 15 0RF lidocaine [Lidoderm] 5 % adhesive patch,medicated 1 patch topical DAILY Qty: 15 0RF Rx Instructions: leave on most painful area for up to 12 hrs prednisone 20 mg tablet 40 mg PO DAILY Qty: 10 0RF No Action (DME) miscellaneous medical supply Misc See Rx Instructions .Route Qty: 4 0RF Rx Instructions: As directed hydrocodone-acetaminophen 5-325 mg tablet 1 tab PO Q4-6H PRN (Reason: pain) Qty: 30 0RF Rx Instructions: Partial Fill upon patient request. methadone 40 mg tablet,soluble 50 mg PO DAILY albuterol sulfate 90 mcg/actuation HFA aerosol inhaler 2 puff PO Q4-6H PRN diclofenac sodium 1 % gel 2 g topical QID Arthritis Pain Relief(capsaic) 0.075 % cream topical TID Referrals: Chaparro Lockett MD, PhD [Physician] - 1 week Print Language: Zambian
[2024-03-10] MEDS: Ketorolac Tromethamine 30 MG/ML VIAL IM (19:25)
[2024-03-10 19:32] VITALS: BP 123/79; PULSE 77; RESP 18; TEMP 36.8; O2SAT 96
== END 2024-03-10 19:38 | disposition home or self-care (01) ==
LOC: HO.ED 19:31
PROVIDERS: Emergency Provider Internal Medicine
DX: M54.32 Sciatica, left side (principal); F11.20 Opioid dependence, uncomplicated
CPT/HCPCS: 96372; 99283; 99284; J1885

== ENCOUNTER 2024-06-29 12:08 | Emergency (ER) | payer MEDICAID, SELFPAY ==
[2024-06-29 12:16] VITALS: BP 137/75; PULSE 59; RESP 18; O2SAT 99; BMI 26.6
--- NOTE | 2024-06-29 12:18 | ED.GENADULT ---
HPI - General Adult General Chief complaint: Eye Problems Stated complaint: l eye pain Time Seen by Provider: 06/29/24 12:21 Source: patient Mode of arrival: ambulatory Limitations: no limitations History of Present Illness HPI narrative: Patient is a 54-year-old male who presents emergency department for evaluation. He reports last night was walking through an area where would was being cut he felt though a piece of wood or saw dust may have gotten into his eye. He has been experiencing increasing pain to the left eye blurred vision. He denies any known significant penetrating trauma to the eye. He states that he does not wear contact lenses. Related Data Home Medications ?Medication ?Instructions ?Recorded ?Confirmed methadone 40 mg soluble tablet 50 mg PO DAILY 02/22/21 04/11/22 albuterol sulfate 90 mcg/actuation 2 puff PO Q4-6H PRN 03/04/21 04/11/22 aerosol inhaler capsaicin 0.075 % topical cream appl topical TID 12/12/21 04/11/22 (Arthritis Pain Relief (capsaicin)) diclofenac sodium 1 % topical gel 2 g topical QID 12/12/21 04/11/22 Previous Rx's ?Medication ?Instructions ?Recorded miscellaneous medical supply #4 ea 03/01/22 hydrocodone 5 mg-acetaminophen 325 1 tab PO Q4-6H PRN pain #30 tabs 09/13/ mg tablet cyclobenzaprine 10 mg tablet 10 mg PO TID PRN muscle spasm #15 03/10/24 tabs lidocaine 5 % topical patch 1 patch topical DAILY #15 ea 03/10/24 (Lidoderm) naproxen 500 mg tablet 500 mg PO BID PRN pain #30 tabs 03/10/24 prednisone 20 mg tablet 40 mg (2 x 20 mg) PO DAILY #10 tabs 03/10/24 ofloxacin 0.3 % eye drops 2 drp ophthalmic (eye) QID 7 days 06/29/24 #5 mL Allergies Allergy/AdvReac Type Severity Reaction Status Date / Time Penicillins [PENICILLINS] Allergy Unknown MY TOUNGE Verified 06/29/24 12:20 TWISTS. Review of Systems Review of Systems: Yes all other systems are reviewed and are negative PMFSH Past Medical History Attestation statement: The following information was validated with the patient. Source: old records reviewed Medical History Disc degeneration, lumbar Spondylosis of lumbar region without myelopathy or radiculopathy Chronic pain syndrome Postlaminectomy syndrome Hepatitis C antibody positive in blood Opioid use disorder Substance abuse Depression Asthma Surgical History Ventral hernia (09/13/23) Hx of colonoscopy Back pain with history of spinal surgery Family History Family History Family/Other Family history of asthma Mother Family history of asthma Colon cancer Social History Social History Household Members: Family Household Members Other:: sister Alcohol intake: current Alcohol intake frequency: does not drink Comment: Decreased anxiety Patient Tobacco Use Status: Current everyday Tobacco user Tobacco use type: Cigarette Cigarette Packs Per Day: 0.5 Cigarettes Per Day: 10 Advance Directives: No Advance Directives Information Provided: Yes Do you have a plan to hurt others: No Plan Current occupational status: unemployed Physical Exam ED Vital Signs: Vital Signs - 24 hr 06/29/24 12:16 Pulse Rate 59 Respiratory Rate 18 Blood Pressure 137/75 Pulse Oximetry 99 Oxygen Delivery Method Room Air BMI result Body Mass Index 26.6 Appearance: Alert.?Oriented to person, place and time. No acute distress.?Normal affect. Eyes: Pupils equal, round and reactive to light.? Left sclera injected. No chemosis. No hyphema. Negative Gage sign. See MDM for fluorescein stain, positive uptake on left CVS: Heart sounds normal. Normal heart rate and rhythm.? Pulses normal.?? Respiratory: No respiratory distress.? Lung sounds clear to auscultation bilaterally?? Skin: Skin warm and dry.? Normal skin color.? Neuro: Moves all extremities spontaneously. Sensation intact bilaterally. Ambulates with normal steady gait. Course Course Course Narrative: This is a rapid medical exam performed by Darryl Daniel NP: Additional HPI, ROS, PE not included below will be deferred to primary provider. Patient is a 54-year-old male presenting to the ED with complaint of left eye pain since this morning. States he was walking through a placed where wood was being cut, feels as though he has a piece of wood or sawdust in his eye. Does not wear glasses or contacts. Plan: visual acuity, tetracaine and fluorescein ordered Medications Administered Discontinued Medications Generic Name Dose Route Start Last Admin Trade Name Shila PRN Reason Stop Dose Admin Fluorescein Sodium 1 strip 06/29/24 12:19 06/29/24 12:46 Fluorescein Sodium Strip EYE-LEFT 06/29/24 12:20 1 strip ONCE ONE Administration Tetracaine HCl 1 drop 06/29/24 12:19 06/29/24 12:47 Tetracaine Hcl 0.5% Oph Ayana 5 Ml Drops EYE-LEFT 06/29/24 12:20 1 drop ONCE ONE Administration Tetracaine HCl 1 drop 06/29/24 12:45 06/29/24 12:47 Tetracaine Hcl/Pf 0.5% Oph Ayana 4 Ml Drops EYE-LEFT 06/29/24 12:46 1 drop ONCE ONE Administration Medical Decision Making Medical Decision Making MDM Narrative: Patient is a 54-year-old male who presents emergency department for evaluation of left eye pain with foreign body sensation. He has notable impaired visual acuity on the left 20/70 compared to 20/30 on the right. Given his significant impairment and pain, I did discuss with him obtaining intra-ocular pressure, once he visualized the device to do so he began yelling at my and declined the exam. Reports a severe fear of needles, attempted to described the mechanism of how the device work he refuses to have pressure obtained. He has no hyphema, chemosis, negative Gage sign, unlikely to have a globe rupture. Unable to visualize any retained foreign body on examination. He was amenable to having a fluorescein staining exam, and he is noted to have multiple corneal abrasions to the eye. A prescription for ofloxacin drops has been sent to his pharmacy of choice, I stressed the importance of following up outpatient with Ophthalmology and he reports ?yeah I'll try if I can?. Differential Diagnosis Differential Diagnoses: The differential diagnosis associated with the presentation includes (See narrative above) External Record Review External record reviewed: Outpatient record Prescription Management I considered prescription management with: Pain Medication and Antibiotic Discharge Plan Discharge Clinical Impression: Corneal abrasion, left Patient Disposition: Home, Self-Care Instructions: Corneal Abrasion (ED) Additional Instructions: As discussed, it is very important that you follow-up with the eye doctor, I have provided their contact information for you. Please call their office first thing tomorrow to arrange for follow-up. Complete the entire course of antibiotic drops to the eye as prescribed. Your tetanus vaccine was updated today. Avoid rubbing at the eye as this may worsen your symptoms. Prescriptions: New ofloxacin 0.3 % drops 2 drp ophthalmic (eye) QID 7 Days Qty: 5 0RF No Action (DME) miscellaneous medical supply Misc See Rx Instructions .Route Qty: 4 0RF Rx Instructions: As directed hydrocodone-acetaminophen 5-325 mg tablet 1 tab PO Q4-6H PRN (Reason: pain) Qty: 30 0RF Rx Instructions: Partial Fill upon patient request. naproxen 500 mg tablet 500 mg PO BID PRN (Reason: pain) Qty: 30 0RF cyclobenzaprine 10 mg tablet 10 mg PO TID PRN (Reason: muscle spasm) Qty: 15 0RF lidocaine [Lidoderm] 5 % adhesive patch,medicated 1 patch topical DAILY Qty: 15 0RF Rx Instructions: leave on most painful area for up to 12 hrs prednisone 20 mg tablet 40 mg PO DAILY Qty: 10 0RF methadone 40 mg tablet,soluble 50 mg PO DAILY albuterol sulfate 90 mcg/actuation HFA aerosol inhaler 2 puff PO Q4-6H PRN diclofenac sodium 1 % gel 2 g topical QID Arthritis Pain Relief(capsaic) 0.075 % cream topical TID Referrals: Alfa Montiel [Physician] - [facility], DIRECTOR OF BANDS [Primary Care Provider] - Print Language: Lao
[2024-06-29] MEDS: Fluorescein Sodium STRIP 1 STRIP EYE-LEFT (12:46)
[2024-06-29] MEDS: Tetracaine HCl/PF 0.5% Oph Sol 4 ML DROPS 1 DROP EYE-LEFT (12:47)
[2024-06-29] MEDS: Tetracaine HCl 0.5% Oph Sol 5 ML DROPS 1 DROP EYE-LEFT (12:47)
[2024-06-29] MEDS: Diphth,Pertus(ACell),Tet Adult 0.5 ML SYRINGE IM (12:52)
[2024-06-29 12:58] VITALS: BP 137/75; PULSE 59; RESP 18; TEMP 36.9; O2SAT 99
== END 2024-06-29 12:58 | disposition home or self-care (01) ==
PROVIDERS: Emergency Provider Emergency Medicine; PCP Registered Nurse
DX: S05.02XA Injury of conjunctiva and corneal abrasion without foreign body, left eye, initial encounter (principal); H57.12 Ocular pain, left eye; X58.XXXA Exposure to other specified factors, initial encounter; W26.9XXA Contact with unspecified sharp object(s), initial encounter; Y93.89 Activity, other specified; Y92.89 Other specified places as the place of occurrence of the external cause; Y99.8 Other external cause status; Z23 Encounter for immunization; Z79.899 Other long term (current) drug therapy
CPT/HCPCS: 90471; 90715; 99282; 99284

== ENCOUNTER 2024-10-20 09:37 | Outpatient (REF) | payer MEDICAID, SELFPAY ==
--- NOTE | ~2024-10-20 | XR_ITS ---
EXAMINATION: XR FOOT, LEFT CLINICAL INFORMATION: chronic left foot pain, hx of puncture wound COMPARISON: None available. TECHNIQUE: AP, lateral, and oblique views of the left foot. FINDINGS: Mild arthrosis of the IP joint of the great toe. Bones joints and soft tissues normal. No foreign body detected XR/XR foot LT min 3V IMPRESSION: Mild arthrosis of the IP joint of the great toe Electronically signed by: Mario Goode MD 10/20/2024 03:08 PM DEO
== END 2024-10-20 09:38 | disposition home or self-care (01) ==
LOC: HO.HHCX 09:37
PROVIDERS: Visit Provider Registered Nurse
DX: M79.672 Pain in left foot (principal); G89.29 Other chronic pain
CPT/HCPCS: 73630

== ENCOUNTER 2025-01-28 11:16 | Outpatient (REF) | payer MEDICAID, SELFPAY ==
--- NOTE | ~2025-01-28 | XR_ITS ---
EXAMINATION: XR CHEST CLINICAL INFORMATION: Chronic cough; significant smoking hx COMPARISON: October 31, 2023. TECHNIQUE: 2 views of the chest were obtained. FINDINGS: No hyperinflation. No consolidation, pleural fissure pneumothorax. Cardiomediastinal silhouette size is normal. S-shaped curvature of the thoracic spine. XR/XR chest 2V IMPRESSION: No acute airspace disease. Scoliosis, mild to moderate. Electronically signed by: Tony Mccall MD 01/28/2025 12:28 PM EDT
--- OUTSIDE RECORDS SUMMARY | 2025-01-28 13:17 | XMS_ITS | Clinical Summary ---
Author Organization [facility] Address [address] [place] [address] Care Team Providers Care Global Manager Name Role Phone Leigha Guthrie MD Primary Care Provider Social History Tobacco Use Types Packs/Day Years Used Date Smoking Tobacco: Never Assessed Sex and Gender Information Value Date Recorded Sex Assigned at Not on file Gender Identity Not on file Sexual Orientation Not on file Plan of Treatment Health Maintenance Due Date Last Done Comments Hepatitis B Vaccines (1 of 3 - 3-dose series) 1969 Hepatitis C Screening 1969 COVID-19 Vaccine (#1) 1969 Depression Screening 1981 Preventative Health Evaluation 1987 DTap / Tdap / Td (1 - Tdap) 1988 Colon Cancer Screening (Colonoscopy) 2014 Shingrix-Zoster Vaccine (1 of 2) 2019 Influenza Vaccine (#1) 2024 Pneumococcal Vaccine Aged Out No long er eligible based on patient's age to complete this topic RSV Ped < 20 months Aged Out No longe r eligible based on patient's age to complete this topic Care Teams Global Manager Relationship Specialty Start Date End Date Leigha Guthrie MD PCP - General Internal Medicine 03/31/20
--- OUTSIDE RECORDS SUMMARY | 2025-01-28 13:17 | XMS_ITS | Encounter Summary ---
Author Organization [facility] Address [address] [place] [address] Care Team Providers Care Scheduling Assistant Name Role Phone Lisa Fermin CHARTER COACH DRIVER Primary Care Provider [phone] Encounter Details Date Type Department Care Team (Latest Contact Info) Description 01/28/2025 Travel Social History Tobacco Use Types Packs/Day Years Used Date Smoking Tobacco: Every Day Cigarettes Smokeless Tobacco: Never Alcohol Use Standard Drinks/Week Comments Never 0 (1 standard drink = 0.6 oz pur e alcohol) Depression Answer Date Recorded Patient Health Questionnaire-9 Score 0 01/28/2025 Patient Health Questionnaire-9 Score 0 01/28/2025 Last PHQ-9: Questionnaire Data Not on file 0 01/28/2025 Housing Stability Answer Date Recorded What is your housing situation today? I do not have housing (Staying with others, in a hotel, in a retirement, living outside on the street, on a beach, in a car, or in a park 08/12/[address] you li ve. Do you have problems with any of the following? None of the above 08/12/2024 Food Insecurity Answer Date Recorded Within the past 12 months, y ou worried that your food would run out before you got money to buy more: Sometimes True 2023 Within the past 12 months,th e food you bought just didn't last and you didn't have enough money to get more: Sometimes True 08/12/2024 Transportation Answer Date Recorded In the past 12 months, has l ack of transportation kept you from medical appts, meetings, work or from getting things needed for daily living? No 08/12/2024 Utilities Answer Date Recorded In the past 12 months, has t he electric, gas, oil or water company threatened to shut off services in your home? No 08/12/2024 Depression Answer Date Recorded Patient Health Questionnaire-2 Score 0 01/28/2025 Internet Access Answer Date Recorded Internet Access Q1 No 08/12/2024 Internet Access Q2 I cannot afford it 08/12/2024 Sex and Gender Information Value Date Recorded Sex Assigned at Male 09/18/2022 10:16 AM EDT Legal Sex Male 10:16 AM EDT Gender Identity Male 09/18/2022 10:16 AM EDT Sexual Orientation Straight 09/18/2022 10 :16 AM EDT documented as of this encounter Plan of Treatment Upcoming Encounters Date Type Department Care Team (Late st Contact Info) Description 02/12/2025 9:00 AM EDT Office Visit [facility] [address] [place] [address] Guicho Santos DMD [address] [place] [address] documented as of this encounter Visit Diagnoses Not on filedocumented in this encounter Additional Health Concerns Assessment Noted Time PHQ-9 Depression Total Score: 0 01/29/20 25 10:31 AM EDT documented as of this encounter Care Teams Scheduling Assistant Relationship Specialty Start Date End Date Lisa Fermin FNP [address] [place] [address] PCP - General Family Medicine 08/16/21 documented as of this encounter
--- OUTSIDE RECORDS SUMMARY | 2025-01-28 13:17 | XMS_ITS | Clinical Summary ---
[facility] Organization [facility] Address [address] [place] [address] Care Team Providers Care Private Branch Exchange Installer Name Role Phone Leigha Guthrie MD Primary Care Provider Social History Tobacco Use Types Packs/Day Years Used Date Smoking Tobacco: Never Assessed Sex and Gender Information Value Date Recorded Sex Assigned at Not on file Legal Sex Male 10:55 PM EST Gender Identity Not on file Sexual Orientation Not on file Last Filed Vital Signs Vital Sign Reading Time Taken Comments Blood Pressure - - Pulse - - Temperature - - Respiratory Rate - - Oxygen Saturation - - Inhaled Oxygen Concentration - - Weight 81.6 kg (180 lb) 01/30/2024 3:02 PM EDT Height 167.6 cm (5' 6 ) 01/30/2024 3:02 PM EDT Body Mass Index 29.05 01/30/2024 3:02 PM EDT Plan of Treatment Health Maintenance Due Date Last Done Comments DTaP,Tdap,and Td Vaccines (1 - Tdap) 1988 Hepatitis B Vaccines (1 of 3 - 19+ 3-dose series) 1988 Pneumococcal Vaccine: 50+ Ye ars (1 of 1 - PCV) 2019 Zoster Vaccines (1 of 2) 2019 COVID-19 Vaccine ( - 2023-2 5 season) 2024 Influenza Vaccine (#1) 2024 Cholesterol Screening (Lipid Panel) 10/14/2024 Colorectal Cancer Screening: Colonoscopy 10/14/2024 Depression Screening 10/14/2024 HIV Screening 10/14/2024 Hepatitis C Screening 10/14/2024 Social Influencers of Health Screening 10/14/2024 HIB Vaccines Aged Out No longer eligi ble based on patient's age to complete this topic HPV Vaccines Aged Out No longer eligi ble based on patient's age to complete this topic Hepatitis A Vaccines Aged Out No long er eligible based on patient's age to complete this topic IPV Vaccines Aged Out No longer eligi ble based on patient's age to complete this topic MMR Vaccines Aged Out No longer eligi ble based on patient's age to complete this topic Meningococcal ACWY Vaccine Aged Out N o longer eligible based on patient's age to complete this topic Meningococcal B Vacine Aged Out No lo nger eligible based on patient's age to complete this topic Pneumococcal Vaccine: Pediat rics (0 to 5 Years) and At-Risk Patients (6 to 64 Years) Aged Out No longer eligible b ased on patient's age to complete this topic RSV Immunization Patients Un yuly 20 months Aged Out No longer eligible b ased on patient's age to complete this topic Varicella Vaccines Aged Out No longer eligible based on patient's age to complete this topic Care Teams Private Branch Exchange Installer Relationship Specialty Start Date End Date Leigha Guthrie MD [address] [place] [address] PCP - General Internal Medicine 03/31/20
--- OUTSIDE RECORDS SUMMARY | 2025-01-28 13:17 | XMS_ITS | Clinical Summary ---
Author Organization [facility] [employer] Address [address] [place] [address] 7[address] [place] [address] Care Team Providers Care Loan Workout Officer Name Role Phone Lisa Fermin OFFICE MACHINE INSTALLER Primary Care Provider [phone] Allergies Active Allergy Reactions Criticality Noted Date Comments Penicillin G 08/02/2018 Medications * This document contains information received from the source organization and may not represent a complete record from that organization. nicotine polacrilex (Nicorette) 4 MG gum chew 1 piece of gum by oral route every 1-[address] hours as needed in place of cigarette, chew and place in between gums/cheek 09/08/20 22 Active naloxone (Narcan) 4 mg/0.1 mL nasal spray Administer 0.1 mL into affected nostril(s). 02/17/20 22 Active methadone (Dolophine) 10 MG tablet Take 1 tablet by mouth every 8 (eight) hours. Active nicotine (Nicotrol) 10 MG inhaler Inhale 1 puff if needed for smoking cessation. Inhale (1units) by inhalation route 6 times everyday needed Active albuterol (Ventolin HFA) 108 (90 Base) MCG/ACT inhaler INHALE 2 PUFFS BY MOUTH EVERY 4 TO 6 HOURS NEEDED 18 g 1 10/31/20 24 Active nicotine polacrilex (Nicorette) 4 MG gumIndications:T obacco use disorder Chew 1 each (4 mg) if needed for smoking cessation. 100 each 01/29/20 25 025 Active lidocaine (Lidoderm) 5 % patchIndications :Chronic bilateral low back pain with bilateral sciatica Apply 1 patch topically Once per day. Remove & discard patch within 12 hours or as directed by MD. 30 patch 1 01/29/20 25 Active budesonide-formo terol (Symbicort) 80-4.5 MCG/ACT inhalerIndicatio ns:Mild intermittent asthma without complication Inhale 1-2 puff every 4 hours as needed for shortness of breath, wheeze 1 each 01/29/20 25 Active albuterol 108 (90 Base) MCG/ACT inhalerIndicatio ns:Mild intermittent asthma without complication Inhale 2 puffs every 6 (six) hours if needed for wheezing. 18 g 11 01/29/20 25 026 Active capsicum (Zostrix) 0.075 % topical cream Apply topically every 8 (eight) hours. 11/04/20 21 025 Discontinued zoster vaccine-recombin ant adjuvanted (Shingrix) 50 MCG/0.5ML vaccine Inject 0.5 mL into the shoulder, thigh, or buttocks. 11/23/19 025 Discontinued lidocaine (Lidoderm) 5 % patch Apply 1 patch topically. apply 1 patch by topical route every day (May wear up to 12hours.) 12/01/19 025 Discontinued Diclofenac Sodium 1 % gel Apply 2 g topically every 6 (six) hours. 11/23/19 025 Discontinued doxycycline (Doryx) 100 MG EC tablet Take 100 mg by mouth in the morning and at bedtime. Take 1 capsule by oral route 2 times every day for 5 days 025 Discontinued DULoxetine (Cymbalta) [address] capsuleIndicatio ns:Depressive disorder Take 1 capsule (60 mg) by mouth in the morning. Do not crush or chew. 30 capsule 1 07/02/20 025 Discontinued gabapentin (Neurontin) 100 MG capsuleIndicatio ns:Bilateral lower extremity edema Take 1 capsule (100 mg) by mouth every 8 (eight) hours. May increase to 2 capsule (200mg) three times daily if needed 90 capsule 11 10/31/20 025 Discontinued guaiFENesin (Mucinex) 600 MG 12 hr tabletIndication s:Subacute cough Take 1 tablet (600 mg) by mouth 2 times daily. Do not crush, chew, or split. 60 tablet 10/31/20 025 Discontinued buPROPion SR (Wellbutrin SR) 100 MG 12 hr tablet Take 100 mg by mouth 2 times daily. 12/17/19 24 025 Discontinued cloNIDine (Catapres) 0.1 MG tabletIndication s:Anxiety and depression Take 1 tablet (0.1 mg) by mouth 2 times daily. 60 tablet 11 08/20/20 24 025 Discontinued Active Problems Problem Noted Date Diagnosed Date Bilateral lower extremity edema 10/31/2023 Overview (10/31/2023): 1. Persistent bilateral LE pain/burning/tingling. Venous ultrasound from 02/2022 to r/o acute DVT was unremarkable. Dependent LE edema Assessment & Plan (11/14/2023 2:52 PM EST): ?? Will obtain venous insufficiency ultrasound and refer to vascular for further eval ?? Given recent cramping will also check magnesium levels ?? Trial gabapentin 100-200mg for pain. Reviewed administration, risks, side effects including increased risk of respiratory depression with concurrent opioid use ?? Patient verbalizes understanding and agrees to plan Retained dental root 09/11/2023 Smoking greater than 30 pack years 09/10/2023 Dental caries 08/15/2023 Periodontal disease 08/15/2023 Missing teeth, acquired 08/15/2023 Nausea and vomiting 07/16/2023 Assessment & Plan (07/16/2023 9:06 AM EDT): It could be limited to a GI issue, I.e viral GI vs food poisnoning. Use Tums and Zofran ac meals, favor clear fluids until vomit stops and advance to soft diet. Avoid soda, sweetened juices, dairy products. Watch for fever, chills, worsening sxs and re consult prn. Continue methadone dose as usual and fu with PCP Chronic hepatitis C without hepatic coma 022 Overview (10/31/2023): ?? Previously followed by [facility] HCV team. Did not complete tx ?? 2021- negative viral load ?? Abd ultrasound from 2020 unremarkable. No evidence of advanced liver dz Assessment & Plan (07/13/2023 8:36 AM EDT): ?? Will check viral load today ?? Pending results will refer back to HCV team as indicated Assessment & Plan (11/06/2022 9:36 PM EST): - Check viral load today, refer back to HCV team if indicated HISTORY -Previously followed by [facility] HCV team. Did not complete tx - Abd ultrasound from 2020 unremarkable, no evidence of advanced liver disease Healthcare maintenance 11/01/2022 Overview (10/22/2024): C-Scope: at [facility] 2-3 years ago. Needs records PSA: Due 09/2023, will order at follow up Vision Exam: Discuss at follow up Dental Care: Followed by outside facility Immunizations: Declines covid, flu Smoking: Established with [facility] LDLCT--12/2023 birads 1 Assessment & Plan (09/10/2023 2:49 PM EDT): ?? Accepts referral to LDLCT screening Assessment & Plan (07/02/2023 3:48 PM EDT): C-Scope: at [facility] 2-3 years ago. Needs records PSA: Due 09/2023 Vision Exam: Dental Care: Immunizations: Assessment & Plan (11/01/2022 10:18 PM EST): CRC: Reports 2-3 years ago at [facility], will request records PSA: 09/2022 0.15 Immunizations: Needs COVID booster, shingles. Declines today Vision: Referred to [facility] vision today Dental: To establish at [facility] STI screening: Discuss at f/u HIV: 10/2021 Neg BMP: 02/2022, WNL Lipids: 09/2022, LDL 91, WNL, not on statin A1c: 5.4, 10/2021 ASCVD: 5.5%, Chronic low back pain 10/20/2022 Assessment & Plan (11/06/2022 10:10 AM EST): - Previously rx'd gabapentin without sx improvement - s/p lumbar decompression and spinal fusion at [facility] 05/2020 - Previously seen by pain mngmt at [facility] for steroid injection Moderate episode of recurrent major depressive d isorder 10/20/2022 Overview (07/13/2023): ?? Hx of psych hospitalization ?? Cymbalta 60mg daily Assessment & Plan (07/25/2023 8:34 AM EDT): Assessment: Patient with anhedonia, isolation, depressed mood, sleep disturbance, low energy, poor appetite and difficulties focusing in the context of passing of mother and chronic back pain. Patient has been in recovery for the past 5 years. Patient is requesting a referral for therapy and psychiatry. At this time Yan Lucio meets criteria for Visit Diagnoses: Problem List Items Addressed This Visit Other Moderate episode of recurrent major depressive disorder (CMS/HCC) Opioid dependence (CMS/HCC) Patient ready to address current needs Yes Strengths include support from his family PLAN: 1. Follow up with [facility]: Not recommended for follow-up 2. Patient goal is to be connected with a therapist 3. Behavioral Recommendations a. Patient will engage in services once established. b. Patient may request to speak with [facility], as needed Assessment & Plan (07/13/2023 8:38 AM EDT): ?? Restart cymbalta 60mg daily, also helpful for chronic back pain ?? Will resubmit referral to [facility]. Pt declines in-office BE. ?? Contact HC if sx worsen or experiencing thoughts of SI or self harm. Pt has [facility] crisis contact information Assessment & Plan (11/06/2022 9:39 PM EST): - Start cymbalta 60mg once daily. Reviewed administration, risks, side effects - Contact HC if symptoms worsen or experiencing thoughts of SI or self harm - Patient has [facility] crisis number available - Continue to work with therapist - Follow up 1 month HISTORY - Long hx of anxiety/depression - Previously hospitalizations for psychiatric care - Working with therapist, Gretel, in [place] who is helpful Mild intermittent asthma 11/06/2021 Assessment & Plan (11/06/2022 10:11 AM EST): PRN albuterol Rotator cuff impingement syndrome 07/13/2020 Ventral hernia without obstruction or gangrene 0 01/22/2019 Opioid dependence 11/21/2018 Overview (07/13/2023): - Methadone maintenance therapy - Has narcan - No hx of IVDU - Persistent heroin use Assessment & Plan (11/06/2022 9:44 PM EST): - Will reach out to MAT program at [facility] regarding establishing with head men's golf coach HISTORY - On methadone maintenance therapy - Persistent heroin use-decreased use from 10 pills per day to 6 pills per day over the past month - No hx of IVDU - Carries Narcan at all times - Occasionally uses alone Resolved Problems Problem Noted Date Diagnosed Date Resolved Date Cirrhosis of liver 11/03/2021 2 Encounters Date Type Department Care Team Description 01/28/2025 11:15 AM EDT Office Visit [facility] [address] [place] [phone] Lisa Fermin FNP Tobacco use disorder (Primary Dx); Chronic bilateral low back pain with bilateral sciatica; Chronic cough; Mild intermittent asthma without complication; Health care maintenance 01/28/2025 Travel 01/21/2025 Patient Outreach [facility] [address] [place] [phone] Lisa Fermin FNP Pre-visit Planning ((Unable to reach for PVP screening and or LVM)) 11/25/2024 Telephone [facility] [address] [place] [phone] Andre High MA Durable Medical Equipment; DME from [facility] 11/24/2024 Telephone [facility] [address] [place] [phone] Pete Rubin DDS 11/24/2024 Telephone [facility] [address] [place] [phone] Pete Rubin DDS 11/07/2024 Telephone [facility] [address] [place] [phone] Pete Rubin DDS 10/30/2024 Refill [facility] [address] [place] [phone] Lisa Fermin FNP from Last 3 Months Immunizations Name Administration Dates Next Due Hep A / Hep B 01/16/2015 Influenza Injectable Quadriv alant Preservative Free IIV4 MDCK 10/04/2021 Influenza injectable quadriv alent preservative free 09/08/2022 Influenza, IIV3, injectable 10/04/2016 Influenza, seasonal, injecta ble, preservative free 08/08/2024 Moderna Covid-19 Vaccine 12+ 10/04/2021,02/23/20 21,01/25/2021 Pfizer Covid-19 Vaccine 12+ 08/08/2024 Pneumococcal Conjugate PCV 20 08/31/2023 Pneumococcal Polysaccharide PPSV23 10/06/2013 TD (adult), 2 Lf tetanus tox oid, preservative free, adsorbed 09/21/2022 Tdap 06/29/2024,12/21/2014 Social History Tobacco Use Types Packs/Day Years Used Date Smoking Tobacco: Every Day Cigarettes Smokeless Tobacco: Never Tobacco Cessation:Ready to Q uit: Not Asked; Counseling Given: Not Answered Alcohol Use Standard Drinks/Week Comments Never 0 [...] with others, in a hotel, in a mcc, living outside on the street, on a [...] Orientation Straight 09/18/2022 10 :16 AM EDT Last Filed Vital Signs Vital Sign Reading Time Taken Comments Blood Pressure 122/71 01/28/2025 10:30 AM EDT Pulse 50 01/28/2025 10:30 AM EDT Temperature 36.5 ??C (97.7 ??F) 01/28/2025 10:30 AM E DT Respiratory Rate 20 01/28/2025 10:30 AM EDT Oxygen Saturation 99% 01/28/2025 10:30 AM EDT Inhaled Oxygen Concentration - - Weight 80.7 kg (178 lb) 01/28/2025 10:30 AM EDT Height 167.6 cm (5' 6 ) 01/28/2025 10:30 AM EDT Body Mass Index 28.73 01/28/2025 10:30 AM EDT Plan of Treatment Upcoming Encounters Date Type Department Care Team (Late st Contact Info) Description 02/12/2025 9:00 AM EDT Office Visit [facility] [address] [place] [address] Guicho Santos, ALONZO [address] [place] [address] Health Maintenance Due Date Last Done Comments CT Colonography 1970 Colonoscopy 1969 Colorectal Cancer Screening 1969 Dental Prophylaxis 1969 FIT DNA/Cologuard 1969 FIT 1969 FOBT 1969 Sigmoidoscopy 1969 Zoster Vaccines (1 of 2) 2019 Dental Oral Exam 02/14/2024 08/15/2023 Dental X-Ray: Bitewings 08/16/2024 08/15/2023, 07/25 Lipid Panel 09/21/2024 09/21/2022, 11/2021, 11/07/2021, Additional history exists SDOH Screening 08/12/2025 08/12/2024 Alcohol/Substance Use Screening 10/22/2025 10/22/2024 Depression Screening 01/28/2026 01/28/2025, 01/29/20 Tobacco Screening 01/28/2026 01/28/2025 Dental X-Ray: Full Mouth 08/16/2026 08/15/2023, 01/17 DTaP/Tdap/Td Vaccines (4 - Td or Tdap) 06/29/2034 06/29/2024, 09/21/2022, 12/21/2014 RSV Patients and Patients Aged 60 years or older (1 - 1-dose 75+ series) 2044 Hepatitis A Vaccines Discontinued 01/16/2015 Hepatitis B Vaccines Discontinued 01/16/2015 HIV Screening Completed 11/07/2021, 11/2020, 11/15/2020, Additional history exists Pneumococcal Vaccine: 50+ Years Completed 08/31/2023, 10/06/2013 COVID-19 Vaccine Completed 08/08/2024, , 02/22/2021, Additional history exists Influenza Vaccine Completed 08/08/2024, , 10/04/2021, Additional history exists HIB Vaccines Aged Out No longer eligi ble based on patient's age to complete this topic HPV Vaccines Aged Out No longer eligi ble based on patient's age to complete this topic IPV Vaccines Aged Out No longer eligi ble based on patient's age to complete this topic Meningococcal Vaccine Aged Out No munira [place] eligible based on patient's age to complete this topic RSV under 20 months Aged Out No longe r eligible based on patient's age to complete this topic Rotavirus Vaccines Aged Out No longer eligible based on patient's age to complete this topic Procedures Procedure Name Priority Date/Time Associated Diagnosis Comments XR CHEST 2 VIEWS Routine 01/28/2025 11:3 9 AM EDT Chronic cough INTRAORAL - COMPLETE SERIES OF RADIOGRAPHIC IMAGES Routine 08/15/2023 3:30 PM EDT PERIODIC ORAL EVALUATION - ESTABLISHED PATIENT Routine 08/15/2023 3:30 PM EDT LIPID PANEL, STANDARD Routine 09/21/2022 10:49 AM EDT HIV 1/2 ANTIGEN/ANTIBODY, FOURTH GENERATION W/RFL Routine 11/07/2021 8:18 AM EST from Last 3 Months or Most Recently Relevant to Health Maintenance Results * XR Chest 2 Views (01/28/2025 11:39 AM EDT) Anatomical Region Laterality Modality Chest Radiographic Cynthia ging 01/28/2025 11:3 9 AM EDT Narrative 01/28/2025 12:31 PM EDT ? [facility] ?[address] ?[place] [address] ?XRay Report ? Signed ? Patient: Lucio,Yan Littlejohn ?MR#: [id number] ?? [id number] ? : 1970 ?Acct:[id number] ? Age/Sex: 54 / M ?ADM Date: 01/28/25 ? Loc: HO.[facility]CL ? Attending Dr: Lisa Fermin OFFICE MACHINE INSTALLER ? Ordering Physician: Lisa Fermin OFFICE MACHINE INSTALLER ?? Date of Service: 01/28/25 ?? Procedure(s): XR chest 2V ?? Accession Number(s): [id number] ? cc: Lisa Fermin OFFICE MACHINE INSTALLER ? EXAMINATION: ?? XR CHEST ? CLINICAL INFORMATION: ?? Chronic cough; significant smoking hx ? COMPARISON: ?? October 31, 2023. ? TECHNIQUE: ?? 2 views of the chest were obtained. ? FINDINGS: ?? No hyperinflation. ?? No consolidation, pleural fissure pneumothorax. ?? Cardiomediastinal silhouette size is normal. ?? S-shaped curvature of the thoracic spine. ? XR/XR chest 2V ?? IMPRESSION: ?? No acute airspace disease. ?? Scoliosis, mild to moderate. ? Electronically signed by: ??Tony Mccall MD ??01/28/2025 12:28 PM ?? EDT RP ? Dictated By: ?Tony Desouza MD ? Signed By: ?<Electronically signed by Tony Cha MD in OV> ? 01/28/25 1228 ? DD/ 1139 ? TD/TT: 01/28/25 1200 ? Breaker Up Machine Operator: ? Procedure Note Donollieter, Image - 01/28/[address] [address] XRay Report Signed Patient: Yan LucioMR#: [id number] : 1970Acct:[id number] Age/Sex: 54 / MADM Date: 01/28/25 Loc: [facility] Attending Dr: Lisa ESTES Ordering Physician: Lisa Fermin Date of Service: 01/28/25 Procedure(s): XR chest 2V Accession Number(s): [id number] cc: Lisa Fermin EXAMINATION: XR CHEST CLINICAL INFORMATION: Chronic cough; significant smoking hx COMPARISON: October 31, 2023. TECHNIQUE: 2 views of the chest were obtained. FINDINGS: No hyperinflation. No consolidation, pleural fissure pneumothorax. Cardiomediastinal silhouette size is normal. S-shaped curvature of the thoracic spine. XR/XR chest 2V IMPRESSION: No acute airspace disease. Scoliosis, mild to moderate. Electronically signed by: Tony Mccall MD 01/28/2025 12:28 PM EDT Dictated By: Tony Desouza MD Signed By: <Electronically signed by Tony Cha MDin OV> 01/28/25 1228 DD/ 1139 TD/TT: 01/28/25 1200 Breaker Up Machine Operator: Lisa CONLEYP IMG XR PROCEDURES Final Resul t * LIPID PANEL, STANDARD (09/21/2022 10:49 AM EDT) Chol/HDLC Ratio 2.7 <5.0 (calc) CONVERTED LEGACY LABS Cholesterol, Total 174 <200 mg/dL CONVERTED LEGACY LABS HDL Cholesterol 64 > OR = 40 mg/dL CONVERTED [facility]GACY LABS LDL Cholesterol 91 mg/dL (calc) CONVERTED [facility]GACY LABS Comment: Reference range: <100 ?? Desirable range <100 mg/dL for primary prevention; ?? <70 mg/dL for patients with CHD or diabetic patients ?? with > or = 2 CHD risk factors. ?? LDL-C is now calculated using the Annette ?? calculation, which is a validated novel method providing ?? better accuracy than the Friedewald equation in the ?? estimation of LDL-C. ?? Chinedu NICOLE et al. DEVANTE. 2013;310(19): 4396-1030 ?? (http://[employer]/faq/RNL652) Non-HDL Cholesterol 110 <130 mg/dL (calc) CONVERTED LEGACY LABS Comment: For patients with diabetes plus 1 major ASCVD risk ?? factor, treating to a non-HDL-C goal of <100 mg/dL ?? (LDL-C of <70 mg/dL) is considered a therapeutic ?? option. Triglycerides 98 <150 mg/dL CONVE RTED LEGACY LABS 09/21/2022 10:4 9 AM EDT [facility] LAB BLOOD ORDERABLES Final Re sult CONVERTED LEGACY LABS * HIV 1/2 ANTIGEN/ANTIBODY,FOURTH GENERATION W/RFL (11/07/2021 8:18 AM EST) HIV-1/2 ANTIGEN AND ANTIBODIES, 4TH GENERATION W/ REFLEX NON-REACT PAUL NON-REACT PAUL [facility] Comment: HIV-1 antigen and HIV-1/HIV-2 antibodies were not detected. There is no laboratory evidence of HIV infection. ?? PLEASE NOTE: This information has been disclosed to you from records whose confidentiality may be protected by state law. ??If your state requires such protection, then the state law prohibits you from making any further disclosure of the information without the specific written consent of the person to whom it pertains, or as otherwise permitted by law. A general authorization for the release of medical or other information is NOT sufficient for this purpose. ? For additional information please refer to http://[employer]/faq/GFP238 (This link is being provided for informational/ educational purposes only.) ? The performance of this assay has not been clinically validated in patients less than 2 years old. ?? 11/07/2021 8:18 AM EST [facility] OFFICE MACHINE INSTALLER LAB BLOOD ORDERABLES Final Re sult [facility] [address] from Last 3 Months or Most Recently Relevant to Health Maintenance Insurance [facility] C3 HSN FULL DENTAL-[facility] MEDICAID STAND ADULT [address] [place] [id number] [place] [id number] Care Teams Loan Workout Officer Relationship Specialty Start Date End Date Lisa Fermin FNP [address] [place] [id number] PCP - General Family Medicine 08/16/21
--- OUTSIDE RECORDS SUMMARY | 2025-01-28 13:17 | XMS_ITS | Encounter Summary ---
Author Organization [employer] Address [address] [facility] [address] [place] [address] Care Team Providers Care Home Health Care Provider Name Role Phone Lisa Fermin [facility] Primary Care Provider [phone] Reason for Visit * Reason Comments Pre-visit Planning (Unable to reach for PVP screening and or LVM) Encounter Details Date Type Department Care Team ([facility] st Contact Info) Description 01/21/2025 Patient Outreach [facility] MEDICINE [address] [place], [place] [phone] [facility] [address] [place] [address] Pre-visit Planning ((Unable to reach for PVP screening and or LVM)) Social History Tobacco Use Types Packs/Day Years Used Date Smoking Tobacco: Every Day Cigarettes Smokeless Tobacco: Never Alcohol Use Standard Drinks/Week Comments Never 0 (1 standard drink = 0.6 oz pur e alcohol) Depression Answer Date Recorded Patient Health Questionnaire-9 Score 0 10/22/2024 Patient Health Questionnaire-9 Score 0 10/22/2024 Last PHQ-9: Questionnaire Data Not on file 1 12/23/2023 Housing Stability Answer Date Recorded What is your housing situation today? I do not have housing (Staying with others, in a hotel, in a correction, living outside on the street, on a [...] Date Recorded Patient Health Questionnaire-2 Score 0 10/22/2024 Internet Access Answer Date Recorded Internet Access Q1 No 08/12/2024 Internet Access Q2 I cannot afford it 08/12/2024 Sex and Gender Information Value Date Recorded Sex Assigned at Male 09/18/2022 10:16 AM EDT Legal Sex Male 10:16 AM EDT Gender Identity Male 09/18/2022 10:16 AM EDT Sexual Orientation Straight 09/18/2022 10 :16 AM EDT documented as of this encounter Progress Notes * Danitza Tanner - 01/21/2025 12:31 PM EST CC Danitza placed outbound call to patient to complete pre-visit planning. No answer at this time. Patient name and were not confirmed. CC unable to leave a voice message. documented in this encounter Plan of Treatment Upcoming Encounters Date Type Department Care Team (Late st Contact Info) Description 02/12/2025 9:00 AM EDT Office Visit [facility] ADULT DENTAL [address] [place] [address] Guicho Santos, ALONZO [address] [place] [address] documented as of this encounter Visit Diagnoses Not on filedocumented in this encounter Additional Health Concerns Assessment Noted Time PHQ-9 Depression Total Score: 0 10/22/20 10:43 AM EST documented as of this encounter Care Teams Home Health Care Provider Relationship Specialty Start Date End Date Lisa Fermin FNP [address] [place] [address] PCP - General Family Medicine 08/16/21 documented as of this encounter
--- OUTSIDE RECORDS SUMMARY | 2025-01-28 13:18 | XMS_ITS | Encounter Summary ---
Author Organization [employer] Address [address] [place] [address] [address] [place] [address] Care Team Providers Care Director Orange Name Role Phone Lisa Fermin [facility] Primary Care Provider [phone] Reason for Visit * Reason Comments Follow-up Encounter Details Date Type Department Care Team ([facility] st Contact Info) Description 01/28/2025 11:15 AM EDT Office Visit [facility] MEDICINE [address] [place], [place] [phone] Lisa Fermin [facility] [address] [place], [place] [phone] Tobacco use disorder (Primary Dx); Chronic bilateral low back pain with bilateral sciatica; Chronic cough; Mild intermittent asthma without complication; Health care maintenance Social History Tobacco Use Types Packs/Day Years [...] with others, in a hotel, in a [facility], living outside on the street, on a [...] AM EDT documented as of this encounter Last Filed Vital Signs Vital Sign Reading [...] Mass Index 28.73 01/28/2025 10:30 AM EDT documented in this encounter Patient Instructions * Patient Instructions* FRANKLYN Fernandez - 01/28/2025 11:15 AM EDT - Chest xray - Labs - Try symbicort inhaler as needed - Follow up with Dental - Referral to physical therapy - Referral to [facility] Eye Care - Consider acupuncture trial - Referral to gastroenterology documented in this encounter Plan of Treatment Upcoming Encounters Date Type Department Care Team (Late st Contact Info) Description 02/12/2025 9:00 AM EDT Office Visit [facility] ADULT DENTAL [address] [place] [address] Guicho Santos, DMD [address] [place] [address] Scheduled Orders Name Type Priority Associated Diagnoses Orde r Schedule Comprehensive Metabolic Panel Lab Routine Health care maintenance Expected: 01/28/2025 (Approximate), Expires: 01/28/2026 Lipid Panel, Standard Lab Routine Health care maintenance Expected: 01/28/2025 (Approximate), Expires: 01/28/2026 CBC auto differential Lab Routine Health care maintenance Expected: 01/28/2025 (Approximate), Expires: 01/28/2026 PSA,Total Lab Routine Health care maintenance Expected: 01/28/2025, Expires: 01/28/2026 Hepatitis C Viral RNA, Quantitative, Real-Time PCR Lab Routine Health care maintenance Expected: 01/28/2025 (Approximate), Expires: 01/28/2026 Hepatitis A,B,C Profile Lab Routine Health care maintenance Expected: 01/28/2025, Expires: 01/28/2026 documented as of this encounter Procedures Procedure Name Priority Date/Time Associated Diagnosis Comments XR CHEST 2 VIEWS Routine 01/28/2025 11:3 9 AM EDT Chronic cough documented in this encounter Results * XR Chest 2 Views (01/28/2025 11:39 AM EDT) Anatomical Region Laterality Modality Chest Radiographic Cynthia ging 01/28/2025 11:3 9 AM EDT Narrative 01/28/2025 12:31 PM EDT ? [facility] ?[address] ?[place] [address] ?XRay Report ? Signed ? Patient: Lucio,Yan Littlejohn ?MR#: [id number] ?? [id number] ? : 1970 ?Acct:[id number] ? Age/Sex: 54 / M ?ADM Date: 01/28/25 ? Loc: HO.HHCL ? Attending Dr: Lisa Fermin NEUROSURGERY PHYSICIAN ? Ordering Physician: Lisa Fermin ?? Date of Service: 01/28/25 ?? Procedure(s): XR chest 2V ?? Accession Number(s): [id number] ? cc: Lisa Fermin NEUROSURGERY PHYSICIAN ? EXAMINATION: ?? XR CHEST ? CLINICAL [...] DD/ 1139 ? TD/TT: 01/28/25 1200 ? Regional Controller: ? Procedure Note [place], Image - 01/28/2025 [place] [address] XRay Report Signed Patient: Yan LucioMR#: [id number] : 1970Acct:[id number] Age/Sex: 54 / MADM Date: 01/28/25 Loc: [facility]CL Attending Dr: Lisa Fermin NEUROSURGERY PHYSICIAN Ordering Physician: Lisa Fermin Date of Service: 01/28/25 Procedure(s): XR chest 2V Accession Number(s): [id number] cc: Lisa Fermin EXAMINATION: XR CHEST CLINICAL [...] Tony Mccall MD 01/28/2025 12:28 PM EDT RP Dictated By: Tony Desouza MD Signed By: <Electronically signed by Tony Cha MDin OV> 01/28/25 1228 DD/ 1139 TD/TT: 01/28/25 1200 Regional Controller: [facility] IMG XR PROCEDURES Final Resul t documented in this encounter Visit Diagnoses Diagnosis Tobacco use disorder- Primary Chronic bilateral low back pain with bilateral sciatica Chronic cough Cough Mild intermittent asthma without complication Health care maintenance documented in this encounter Additional Health Concerns Assessment Noted Time PHQ-9 Depression Total Score: 0 01/29/20 25 10:31 AM EDT documented as of this encounter Care Teams Director Orange Relationship Specialty Start Date End Date StrykerLisa FNP [address] [place] [id number] PCP - General Family Medicine 08/16/21 documented as of this encounter
[2025-01-28 13:55] LABS: MANUAL DIFF FLAG NO
[2025-01-28 14:00] LABS: Basophils Percent Auto 0.1 % (0-2); Eosinophils Absolute Auto 0.2 X10*3/uL (0.0-0.4); Hematocrit 36.8 % (42.0-52.0); Hemoglobin 12.3 g/dl (14.0-18.0); Imm Gran Abs Auto 0.02 X10*3/uL (0.00-0.03); Imm Gran Pct Auto 0.3 % (0.0-0.4); Lymphocytes Absolute Auto 2.1 X10*3/uL (1.2-4.9); Lymphocytes Percent Auto 28.5 % (20-40); Mean Corpuscular HGB Conc 33.4 g/dl (31.0-36.0); Mean Corpuscular Volume 92.7 fL (80.0-98.0); Mean Platelet Volume 12.4 fL (9.4-12.4); Monocytes Absolute Auto 0.5 X10*3/uL (0.1-1.2); Monocytes Percent Auto 6.5 % (2-11); Neutrophils Absolute Auto 4.5 x10*3/uL (2.0-8.3); Neutrophils Percent Auto 61.6 % (45-73); Platelet Count 142 X10*3/uL (160-400); Red Blood Count 3.97 X10*6/uL (4.60-5.80); Red Cell Distribution Width 13.4 % (11.0-16.0); White Blood Count 7.2 X10*3/uL (4.8-10.8)
[2025-01-28 14:36] LABS: Alanine Aminotransferase 43 U/L (0-40); Albumin Level 4.1 g/dL (3.5-5.0); Alkaline Phosphatase 50 U/L (39-117); Anion Gap 9 (12-20); Aspartate Amino Transferase 124 U/L (5-37); Bilirubin Total 0.3 mg/dL (0.0-1.0); Blood Urea Nitrogen 17 mg/dL (9-16); C Reactive Protein 0.11 mg/dL (< or = 0.50); Carbon Dioxide 25 mmol/L (22-29); Chloride 110 mmol/L (96-108); Cholesterol 133 mg/dL (<200); Estimated Glomerular Filt Rate > 60; Glucose Random 73 mg/dL (60-115); HDL Cholesterol 50 mg/dL (>40); LDL Cholesterol Calculated 56 mg/dL (<100); Potassium 4.2 mmol/L (3.3-5.1); Sodium 140 mmol/L (135-145); Total Protein 7.4 g/dL (6.5-8.0); Triglycerides 135 mg/dL (<150)
[2025-01-28 14:48] LABS: Prostate Specific Antigen < 0.10 ng/mL (<0.05-4.0)
[2025-01-28 14:52] LABS: TSH reflex Free T4 2.22 uIU/mL (0.32-4.0)
[2025-01-28 15:01] LABS: Erythrocyte Sedimentation Rate 10 MM/HR (0-15)
[2025-01-29 04:22] LABS: HBS Num1 87.63 mIU/mL (0-7.99); HBc Num1 10.03 S/CO (0.00-0.79); HBsAGNum1 0.26 S/CO (0.00-0.99); HIV AB/AG Nonreactive (Nonreactive); HIV Num 1 0.09 S/CO (0.00-0.99); Hepatitis A Antibody IgM 0.31 Index (0-0.79); Hepatitis B Surface Antigen Negative (Negative); ~HepC Num1 12.28 S/CO (0.00-0.79); ~Hepatitis A Antibody IgM Nonreactive (Nonreactive); ~Hepatitis B Surface Antibody REACTIVE (Nonreactive); ~Hepatitis C Antibody Reactive (Nonreactive)
[2025-01-29 05:02] LABS: HBc Num2 9.86 S/CO; HBc Num3 9.86 S/CO; Hepatitis B Core Antibody Reactive (Nonreactive)
[2025-01-30 14:07] LABS: HCV Log PCR <1.18 NOT DETECTED Log IU/mL (NOT DETECTED); HepC Viral Load <15 NOT DETECTED IU/mL (NOT DETECTED)
== END 2025-01-28 11:17 | disposition home or self-care (01) ==
LOC: HO.HHCL 11:16
PROVIDERS: Visit Provider Registered Nurse
DX: Z00.00 Encounter for general adult medical examination without abnormal findings (principal); R05.3 Chronic cough; R63.4 Abnormal weight loss
CPT/HCPCS: 36415; 71046; 80053; 80061; 84153; 84443; 85025; 85652; 86140; 86704; 86706; 86709; 86803; 87340; 87389; 87522

== ENCOUNTER → 2025-01-28 11:39 | Outpatient (BNV) | payer MEDICAID, SELFPAY | PROVIDERS: Visit Provider Radiology Diagnostic Radiology | DX: R05.3 Chronic cough (principal); F17.210 Nicotine dependence, cigarettes, uncomplicated | CPT/HCPCS: 71046 ==

== ENCOUNTER 2025-02-20 08:48 | Outpatient (REF) | payer MEDICAID, SELFPAY ==
--- OUTSIDE RECORDS SUMMARY | 2025-02-20 09:19 | XMS_ITS | Clinical Summary ---
Author Organization [facility] Address [address] [place] [address] 7[address] [place] [address] Care Team Providers Care Skidway Worker Name Role Phone Lisa Fermin EAR PULL MACHINE OPERATOR Primary Care Provider [phone] Allergies Active Allergy Reactions Criticality Noted Date [...] 60 tablet 11 08/20/20 24 025 Discontinued clindamycin (Cleocin) 150 MG capsule Take 1 capsule (150 mg) by mouth 3 times daily for 7 days. 21 capsule 02/13/20 25 025 chlorhexidine (Peridex) 0.12 % solution Use 15 mL in the mouth or throat if needed in the morning, at noon, and at bedtime (PROPHYLAXIS) for up to 5 days. 110 mL 02/13/20 25 025 acetaminophen (Tylenol) 500 MG tablet Take 1 tablet (500 mg) by mouth every 8 (eight) hours if needed for mild pain or moderate pain for up to 5 days. 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 Previously followed by [facility] HCV team. Did not complete tx [...] team if indicated HISTORY -Previously followed by [facility] HCV team. Did not complete tx - Abd ultrasound from 2020 unremarkable, no evidence of advanced liver disease Healthcare maintenance 11/01/2022 Overview (10/22/2024): C[place] [facility] [place]. Needs records PSA: Due 09/2023, will order at follow up Vision Exam: Discuss at follow up Dental Care: Followed by outside facility Immunizations: Declines covid, flu Smoking: Established with [facility] [place]--12/2023 birads 1 Assessment & Plan (09/10/2023 2:49 PM EDT): ?? Accepts referral to LDLCT screening Assessment & Plan (07/02/2023 3:48 PM EDT): C-Scope: [place] [facility] 2-3 years ago. Needs records PSA: Due 09/2023 Vision Exam: Dental Care: Immunizations: Assessment & Plan (11/01/2022 10:18 PM EST): CRC: Reports 2-3 years ago at [facility], will request records PSA: 09/2022 0.15 Immunizations: Needs COVID booster, shingles. Declines today Vision: Referred to [facility] vision today Dental: To establish at [facility] STI screening: Discuss at f/u HIV: 10/2021 Neg BMP: 02/2022, WNL Lipids: 09/2022, LDL 91, WNL, not on statin A1c: 5.4, 10/2021 ASCVD: 5.5%, Chronic low back pain 10/20/2022 Assessment & Plan (11/06/2022 10:10 AM EST): - Previously rx'd gabapentin without sx improvement - s/p lumbar decompression and spinal fusion at [facility] 05/2020 - Previously seen by pain mngmt at [facility] for steroid injection Moderate episode of recurrent [...] his family PLAN: 1. Follow up with [facility]: Not recommended for follow-up 2. Patient goal is to be connected with a therapist 3. Behavioral Recommendations a. Patient will engage in services once established. b. Patient may request to speak with [facility], as needed Assessment & Plan (07/13/2023 8:38 AM EDT): ?? Restart cymbalta 60mg daily, also helpful for chronic back pain ?? Will resubmit referral to [facility] [place]. Pt declines in-office BE. ?? Contact HC if sx worsen or experiencing thoughts of SI or self harm. Pt has [facility] crisis contact information Assessment & Plan (11/06/2022 9:39 PM EST): - Start cymbalta 60mg once daily. Reviewed administration, risks, side effects - Contact HC if symptoms worsen or experiencing thoughts of SI or self harm - Patient has [facility] crisis number available - Continue to work with therapist - Follow up 1 month HISTORY - Long hx of anxiety/depression - Previously hospitalizations for psychiatric care - Working with therapist, Gretel, in [place] who is helpful Mild intermittent asthma 11/06/2021 [...] Will reach out to MAT program at [facility] regarding establishing with volleyball assistant coach HISTORY - On methadone maintenance therapy - Persistent heroin use-decreased use from 10 pills per day to 6 pills per day over the past month - No hx of IVDU - Carries Narcan at all times - Occasionally uses alone Resolved Problems Problem Noted Date Diagnosed Date Resolved Date Cirrhosis of liver 11/03/2021 2 Encounters Date Type Department Care Team Description 02/12/2025 9:00 AM EDT Office Visit [facility] ADULT DENTAL [address] [place] [address] Guicho Santos, DMD 02/06/[address] [address] Lisa Fermin FNP Results 02/06/2025 Orders Only [facility] W[facility] [address] [place] [address] Lisa Fermin FNP Elevated liver enzymes (Primary Dx) 02/04/[address] [address] Lisa Fermin FNP Results 01/30/2025 Population Health Risk Score [facility] () [address] [phone] Provider, Population Health Generic 01/28/2025 11:15 AM EDT Office Visit [address] [address] Lisa Fermin FNP Chronic bilateral low back pain with bilateral sciatica (Primary Dx); Chronic cough; Health care maintenance; Tobacco use disorder; Mild intermittent asthma without complication; Weight loss, abnormal 01/28/2025 Travel 01/21/2025 Patient Outreach [address] [address] Lisa Fermin FNP Pre-visit Planning ((Unable to reach for PVP screening and or LVM)) 11/25/[address] [address] Andre High [place] Durable Medical Equipment; DME from [facility] 11/24/2024 Telephone [facility] ADULT DENTAL [address] [place] [phone] Pete Rubin DDS 11/24/2024 Telephone [facility] ADULT DENTAL [address] [place] [phone] Pete Rubin DDS from Last 3 Months Immunizations Name Administration [...] with others, in a hotel, in a longterm, living outside on the street, on a [...] Sign Reading Time Taken Comments Blood Pressure 110/70 02/12/2025 9:01 AM EDT Pulse 68 02/12/2025 9:01 AM EDT Temperature 36.5 ??C (97.7 ??F) [...] Care Team (Late st Contact Info) Description 04/27/2025 1:00 PM EDT Office Visit [facility] MEDICINE [address] [place] [address] [facility] [address] [place] [address] 04/29/2025 11:00 AM EDT Office Visit [facility] ADULT DENTAL [address] [place] [address] Brit Schmidt Health Maintenance Due Date Last Done Comments CT Colonography 1970 Colonoscopy 1969 Colorectal Cancer Screening 1970 Dental Prophylaxis 1969 FIT DNA/Cologuard 1969 FIT 1969 FOBT 1970 Sigmoidoscopy 1969 Zoster Vaccines (1 of 2) 2019 Dental X-Ray: Bitewings 08/16/2024 08/15/2023, 07/25 SDOH Screening 08/12/2025 08/12/2024 Dental Oral Exam 08/16/2025 02/12/2025, 08/15/2023 Alcohol/Substance Use Screening 10/22/2025 10/22/2024 Depression Screening 01/28/2026 01/28/2025, 01/29/20 Tobacco Screening 02/12/2026 02/12/2025 Lipid Panel 01/28/2027 01/28/2025, 01/2022, 09/19/2022, Additional history exists Dental X-Ray: Full Mouth 02/14/2028 025, 08/15/2023, 01/31/2021 DTaP/Tdap/Td Vaccines (4 - Td or Tdap) 06/29/2034 06/29/2024, 09/21/2022, 12/21/2014 RSV Patients and Patients Aged 60 years or older (1 - 1-dose 75+ series) 2044 Hepatitis A Vaccines Discontinued 01/16/2015 Hepatitis B Vaccines Discontinued 01/16/2015 Pneumococcal Vaccine: 50+ Years Completed 08/31/2023, 10/06/2013 COVID-19 Vaccine Completed 08/08/2024, , 02/22/2021, Additional history exists Influenza Vaccine Completed 08/08/2024, , 10/04/2021, Additional history exists HIV Screening Completed 01/28/2025, 10/20, 10/19/2021, Additional history exists HIB Vaccines Aged Out [...] Procedure Name Priority Date/Time Associated Diagnosis Comments CASE PRESENTATION, DETAILED AND EXTENSIVE TREATMENT PLANNING Routine 02/12/2025 9:00 AM EDT PANORAMIC RADIOGRAPHIC IMAGE Routine 02/12/2025 9:00 AM EDT PERIODIC ORAL EVALUATION - ESTABLISHED PATIENT Routine 02/12/2025 9:00 AM EDT XR CHEST 2 VIEWS Routine 01/28/2025 11:3 9 AM EDT Chronic cough HEPATITIS PANEL, GENERAL Routine 01/28/2025 11:19 AM EDT Health care maintenance PSA, TOTAL Routine 01/28/2025 11:19 AM EDT Health care maintenance LIPID PANEL, STANDARD Routine 01/28/2025 11:19 AM EDT Health care maintenance TSH W/REFLEX TO FT4 Routine 01/28/2025 1 1:19 AM EDT Weight loss, abnormal C-REACTIVE PROTEIN Routine 01/28/2025 11 :19 AM EDT Weight loss, abnormal SED RATE BY MODIFIED WESTERGREN Routine 01/28/2025 11:19 AM EDT Weight loss, abnormal HEPATITIS C VIRAL RNA, QUANTITATIVE, REAL-TIME PCR Routine 01/28/2025 11:19 AM EDT Weight loss, abnormal HIV 1/2 ANTIGEN/ANTIBODY, FOURTH GENERATION W/RFL Routine 01/28/2025 11:19 AM EDT Weight loss, abnormal COMPREHENSIVE METABOLIC PANEL Routine 01/28/2025 11:19 AM EDT Weight loss, abnormal CBC WITH AUTO DIFFERENTIAL Routine 01/28/2025 11:19 AM EDT Weight loss, abnormal INTRAORAL - COMPLETE SERIES OF RADIOGRAPHIC IMAGES Routine 08/15/2023 3:30 PM EDT from Last 3 Months or Most Recently Relevant to Health Maintenance Results * XR Chest 2 Views (01/28/2025 11:39 AM EDT) Anatomical Region Laterality Modality Chest Radiographic Cynthia ging 01/28/2025 11:3 9 AM EDT Narrative 01/28/2025 12:31 PM EDT ? [facility] ?[address] ?[place] [address] ?XRay Report ? Signed ? Patient: Lucio,Yan Littlejohn ?MR#: [id number] ?? [id number] ? : 1970 ?Acct:[id number] ? Age/Sex: 54 / M ?ADM Date: 01/28/25 ? Loc: HO.HHCL ? Attending Dr: Lisa CONLEYP ? Ordering Physician: Lisa Fermin ?? Date of Service: 01/28/25 ?? Procedure(s): XR chest 2V ?? Accession Number(s): [id number] ? cc: Lisa Fermin ? EXAMINATION: ?? XR CHEST ? CLINICAL [...] DD/ 1139 ? TD/TT: 01/28/25 1200 ? Phlebotomy Supervisor: ? Procedure Note Nj, Farrah - 01/28/[address] [address] XRay Report Signed Patient: Yan Lucio#: [id number] : 1970Acct:[id number] Age/Sex: 54 / MADM Date: 01/28/25 Loc: [facility] Attending Dr: Lisa Fermin EAR PULL MACHINE OPERATOR Ordering Physician: Lisa Fermin Date of Service: 01/28/25 Procedure(s): XR chest 2V Accession Number(s): [id number] cc: [facility] EXAMINATION: XR CHEST CLINICAL INFORMATION: Chronic cough; [...] 01/28/25 1228 DD/ 1139 TD/TT: 01/28/25 1200 Phlebotomy Supervisor: [facility] EAR PULL MACHINE OPERATOR IMG XR PROCEDURES Final Resul t * TSH W/Reflex to FT4 (01/28/2025 11:19 AM EDT) TSH reflex Free T4 2.22 0.32 - 4.0 uIU/mL [facility] Blood Venous blood specimen / Unknown 01/28/2025 11:19 AM EDT 01/28/2025 1:50 PM EDT [facility] LAB BLOOD ORDERABLES Final Re sult [facility] [address] [place] [phone] * (ABNORMAL) Hepatitis A,B,C Profile (01/28/2025 11:19 AM EDT) Hepatitis A IgM Nonreactive Nonreactive [facility] Comment:IgM antibodies to YANG V not detected; does not exclude earlyacute or recovered HAV infection. ~Hepatitis B Surface Antibody REACTIVE Nonreactive [facility] Comment:REACTIVE: > 11.99 mI U/mL Hepatitis B Core Antibody Reactive Nonreactive [facility] Comment:Presumptive evidence of anti-HBc. Hepatitis C Antibody Reactive(A) Nonreactive [facility] Comment:Presumptive evidence of antibodies to HCV. Hepatitis B Surface Ag Negative Negative [facility] Blood Venous blood specimen / Unknown 01/28/2025 11:19 AM EDT 01/28/2025 1:50 PM EDT [facility] LAB BLOOD ORDERABLES Final Re sult Performing Organization Address [facility] Co de Phone Number [facility] [address] [place] [phone] * Hepatitis C Viral RNA, Quantitative, Real-Time PCR (01/28/2025 11:19 AM EDT) [facility] Hepatitis C Viral Load <15 NOT DETECTED NOT DETECTED IU/mL [facility] HCV Log PCR <1.18 NOT DETECTED NOT DETECTED Log IU/mL [facility] Comment:For additional infor mation, please refer tohttp://education.Movli/faq/DRH94g8(This link is being provided for informational/educational purposes only.)THIS TEST WAS PERFORMED AT:[facility] [place] [phone] SCOTT MD Blood Venous blood specimen / Unknown 01/28/2025 11:19 AM EDT 01/28/2025 1:50 PM EDT [facility] LAB BLOOD ORDERABLES Final Re sult Performing Organization Address [facility] de Phone Number [facility] [address] [place] [phone] * (ABNORMAL) CBC auto differential (01/28/2025 11:19 AM EDT) [facility] White Blood Count 7.2 4.8 - 10.8 X10*3/uL [facility] Red Blood Count 3.97(L) 4.60 - 5.80 X10*6/uL [facility] Hemoglobin 12.3(L) 14.0 - 18.0 g/dl [facility] Hematocrit 36.8(L) 42.0 - 52.0 % [facility] Mean Corpuscular Volume 92.7 80.0 - 98.0 fL [facility] Mean Corpuscular Hemoglobin 31.0 27.0 - 33.0 pg [facility] Mean Corpuscular HGB Conc 33.4 31.0 - 36.0 g/dl [facility] Red Cell Distribution Width 13.4 11.0 - 16.0 % [facility] Platelet Count 142(L) 160 - 400 X10*3/uL [facility] Mean Platelet Volume 12.4 9.4 - 12.4 fL [facility] Neutrophils Percent Auto 61.6 45 - 73 % [facility] Imm Gran Pct Auto 0.3 0.0 - 0.4 % [facility] Lymphocytes Percent Auto 28.5 20 - 40 % [facility] Monocytes Percent Auto 6.5 2 - 11 % [facility] Eosinophils Percent Auto 3.0 0 - 4 % [facility] Basophils Percent Auto 0.1 0 - 2 % [facility] NRBC Pct Auto 0.0 0.0 - 0.2 /100WBC [facility] Neutrophils Absolute Auto 4.5 2.0 - 8.3 x10*3/uL [facility] Imm Gran Abs Auto 0.02 0.00 - 0.03 X10*3/uL [facility] Lymphocytes Absolute Auto 2.1 1.2 - 4.9 X10*3/uL [facility] Monocytes Absolute Auto 0.5 0.1 - 1.2 X10*3/uL [facility] Eosinophils Absolute Auto 0.2 0.0 - 0.4 X10*3/uL [facility] Basophils Absolute Auto 0.0 0.0 - 0.2 X10*3/uL [facility] NRBC Abs Auto 0.000 0.0 - 0.012 X10*3/uL [facility] Blood Venous blood specimen / Unknown 01/28/2025 11:19 AM EDT 01/28/2025 1:50 PM EDT [facility] LAB BLOOD ORDERABLES Final Re sult Performing Organization Address [facility]/ZIP Co de Phone Number [facility] [address] [place] [address] [phone] * HIV-1/2 Antigen and Antibodies, Fourth Generation, with Reflexes (01/28/2025 11:19 AM EDT) HIV AB/AG Nonreactive Nonreactive [facility] Comment:HIV-1 p24 Ag and/or HIV-1/HIV-2 Ab not detected.A test result that is nonreactive does not exclude thepossibility of exposure to or infection with HIV-1 and/orHIV-2. Nonreactive results in this assay for individualswith prior exposure to HIV-1 and/or HIV-2 may be due toantigen and antibody levels that are below the limit ofdetection of this assay.The [employer] HIV Ag/Ab Combo assay result andsupplemental assay results should be interpreted inconjunction with the patient's clinical presentation,history and other laboratory results. If the results areinconsistent with clinical evidence, additional testing issuggested to confirm the result. Blood Venous blood specimen / Unknown 01/28/2025 11:19 AM EDT 01/28/2025 1:50 PM EDT [facility] LAB BLOOD ORDERABLES Final Re sult Performing Organization Address [facility]/ZIP Co de Phone Number [facility] [address] [place] [phone] [phone] * Sed Rate by Modified Janusz (01/28/2025 11:19 AM EDT) Erythrocyte Sedimentation Rate 10 0 - 15 MM/HR [facility] Comment:Patients with polycy themia and many hemoglobin abnormalitiesmay have depressed sed rates whereas patients with anemiamay have elevated sed rates. Blood Venous blood specimen / Unknown 01/28/2025 11:19 AM EDT 01/28/2025 1:50 PM EDT [facility] LAB BLOOD ORDERABLES Final Re sult Performing Organization Address City/[facility]/ZIP Co de Phone Number [facility] [address] [place] [phone] * C-reactive Protein (01/28/2025 11:19 AM EDT) C Reactive Protein 0.11 < or = 0.50 mg/dL [facility] Blood Venous blood specimen / Unknown 01/28/2025 11:19 AM EDT 01/28/2025 1:50 PM EDT [facility] LAB BLOOD ORDERABLES Final Re sult Performing Organization Address [facility] Co de Phone Number [facility] [address] [place] [phone] * PSA,Total (01/28/2025 11:19 AM EDT) Prostate Specific Antigen <0.10 <0.05 - 4.0 ng/mL [facility] Comment:PSA methodology: Estephania Montilla i ChemiluminescentMicroparticle Immunoassay (CMIA) Blood Venous blood specimen / Unknown 01/28/2025 11:19 AM EDT 01/28/2025 1:50 PM EDT [facility] LAB BLOOD ORDERABLES Final Re sult Performing Organization Address [facility] Co de Phone Number [facility] [address] [place] [phone] * Lipid Panel, Standard (01/28/2025 11:19 AM EDT) Triglycerides 135 <150 mg/dL [facility] Comment:Desirable Triglyceri de: less than 150 mg/dLBorderline High Triglyceride 150-199 mg/dLHigh Triglyceride: 200-499 mg/dLVery High Triglyceride: greater than or equal to 5OO mg/dL Cholesterol 133 <200 mg/dL [facility] Comment:Desirable Cholestero l: less than 200 mg/dLBorderline High Cholesterol: 200-239 mg/dLHigh Cholesterol: greater than 239 mg/dL LDL Cholesterol Calculated 56 <100 mg/dL [facility] Comment:Desirable LDL: less than 100 mg/dLNear Optimal/Above Optimal LDL: 110- 129 mg/dLBorderline High LDL: 130-159 mg/dLHigh LDL: 160-189 mg/dLVery High LDL: greater than or equal to 190 mg/dL HDL Cholesterol 50 >40 mg/dL [facility] Comment:Desirable HDL: great er than 40 mg/dL Note: This HDL assay may give artificially low results in patients with liver disease. Blood Venous blood specimen / Unknown 01/28/2025 11:19 AM EDT 01/28/2025 1:50 PM EDT [facility] EAR PULL MACHINE OPERATOR LAB BLOOD ORDERABLES Final Re sult [facility] [address] [place] [phone] * (ABNORMAL) Comprehensive Metabolic Panel (01/28/2025 11:19 AM EDT) Sodium 140 135 - 145 mmol/L [facility] Potassium 4.2 3.3 - 5.1 mmol/L [facility] Chloride 110(H) 96 - 108 mmol/L [facility] Carbon Dioxide 25 22 - 29 mmol/L [facility] Anion Gap 9(L) 12 - 20 [facility] Urea Nitrogen (BUN) 17(H) 9 - 16 mg/dL [facility] Creatinine, Serum 0.92 0.5 - 1.4 mg/dL [facility] Estimated Glomerular Filt Rate >60 [facility] Comment:Chronic Kidney Disea se: Estimated GFR < 60 mL/min/1.54m5Hkijoq Kidney Disease: Estimated GFR < 15 mL/min/1.73m2 Glucose 73 60 - 115 mg/dL [facility] Calcium 9.0 8.4 - 10.2 mg/dL [facility] Bilirubin, Total 0.3 0.0 - 1.0 mg/dL [facility] Aspartate Amino Transferase 124(H) 5 - 37 U/L [facility] Alanine Aminotransferase 43(H) 0 - 40 U/L [facility] Total Protein 7.4 6.5 - 8.0 g/dL [facility] Albumin Level 4.1 3.5 - 5.0 g/dL [facility] Alkaline Phosphatase 50 39 - 117 U/L [facility] Blood Venous blood specimen / Unknown 01/28/2025 11:19 AM EDT 01/28/2025 1:50 PM EDT [facility] LAB BLOOD ORDERABLES Final Re sult [facility] [address] [place] [phone] from Last 3 Months Insurance [facility] C3 [facility] STAND ADULT [address] [place] [id number] Care Teams Skidway Worker Relationship Specialty Start Date End Date Lisa Fermin FNP [address] [place] [phone] PCP - General Family Medicine 08/16/21
--- OUTSIDE RECORDS SUMMARY | 2025-02-20 09:19 | XMS_ITS | Clinical Summary ---
Author Organization [facility] Address [address] [place] [phone] Care Team Providers Care Axle Polisher Name Role Phone Leigha Guthrie MD Primary [...] complete this topic RSV Immunization Patients Un yluy 20 months Aged Out No longer eligible b ased on patient's age to complete this topic Varicella Vaccines Aged Out No longer eligible based on patient's age to complete this topic Care Teams Axle Polisher Relationship Specialty Start Date End Date Leigha Guthrie MD [address] [place] [address] PCP - General Internal Medicine 03/31/20
[2025-02-20 12:18] LABS: Alanine Aminotransferase 32 U/L (0-40); Albumin Level 4.1 g/dL (3.5-5.0); Alkaline Phosphatase 46 U/L (39-117); Aspartate Amino Transferase 46 U/L (5-37); Bilirubin Direct 0.2 mg/dL (0.0-0.5); Bilirubin Total 0.5 mg/dL (0.0-1.0)
== END 2025-02-20 08:49 | disposition home or self-care (01) ==
LOC: HO.HHCL 08:48
PROVIDERS: Visit Provider Registered Nurse
DX: Z00.00 Encounter for general adult medical examination without abnormal findings (principal); R74.8 Abnormal levels of other serum enzymes
CPT/HCPCS: 36415; 80076

== ENCOUNTER 2025-06-07 17:25 | Emergency (ER) | payer MEDICAID, SELFPAY ==
--- NOTE | 2025-06-07 17:51 | ED.SKABFB ---
HPI - Skin/Abscess/Foreign Bdy General Chief complaint: Extremity Injury, Lower Stated complaint: rt foot pain + swollen Time Seen by Provider: 06/07/25 17:51 Source: patient Mode of arrival: ambulatory Limitations: no limitations History of Present Illness ED Provider: Angelica Dubose APRN HPI narrative: 55 yo male with past medical history asthma, OUD on methadone, previous back surgery here with complaints of right foot swelling, redness and pain for the last 2 days. Patient reports he noticed it after [place]. Denies fevers, chills, numbness, tingling. Related Data Home Medications ?Medication ?Instructions ?Recorded ?Confirmed methadone 40 mg soluble tablet 50 mg PO DAILY 02/22/21 04/11/22 albuterol sulfate 90 mcg/actuation 2 puff PO Q4-6H PRN 03/04/21 04/11/22 aerosol inhaler capsaicin 0.075 % topical cream appl topical TID 12/12/21 04/11/22 (Arthritis Pain Relief (capsaicin)) diclofenac sodium 1 % topical gel 2 g topical QID 12/12/21 04/11/22 Previous Rx's ?Medication ?Instructions ?Recorded miscellaneous medical supply #4 ea 03/01/22 hydrocodone 5 mg-acetaminophen 325 1 tab PO Q4-6H PRN pain #30 tabs 09/13/ mg tablet cyclobenzaprine 10 mg tablet 10 mg PO TID PRN muscle spasm #15 03/10/24 tabs lidocaine 5 % topical patch 1 patch topical DAILY #15 ea 03/10/24 (Lidoderm) naproxen 500 mg tablet 500 mg PO BID PRN pain #30 tabs 03/10/24 prednisone 20 mg tablet 40 mg (2 x 20 mg) PO DAILY #10 tabs 03/10/24 ofloxacin 0.3 % eye drops 2 drp ophthalmic (eye) QID 7 days 06/29/24 #5 mL cefpodoxime 200 mg tablet 200 mg PO BID #20 tabs 06/07/25 ciprofloxacin HCl 500 mg tablet 500 mg PO BID #20 tabs 06/07/25 Allergies Allergy/AdvReac Type Severity Reaction Status Date / Time Penicillins (PENICILLINS) Allergy Unknown MY TOUNGE Verified 06/07/25 17:53 TWISTS. Review of Systems Review of Systems: Yes all other systems are reviewed and are negative Constitutional: Constitutional: Reports no additional constitutional complaints, Denies body ache(s), Denies chills, Denies fever(s), Denies headache(s) and Denies weakness Eyes: Eyes: Reports no additional eye complaints and Denies change in vision ENT: Reports system reviewed and no additional complaints, except as documented, Denies dizziness, Denies headache(s), Denies nasal congestion, Denies nasal discharge and Denies neck pain Cardiovascular: Cardiovascular: Reports no additional cardiovascular complaints, Denies chest pain, Denies leg edema and Denies dyspnea Respiratory: Respiratory: Reports no additional respiratory complaints, Denies cough and Denies dyspnea Gastrointestinal: Gastrointestinal: Reports no additional gastrointestinal complaints, Denies abdominal pain, Denies diarrhea, Denies nausea and Denies vomiting Genitourinary: Genitourinary: Denies urinary incontinence Musculoskeletal: Musculoskeletal: Reports no additional musculoskeletal complaints, Denies back pain, Denies arthralgias, Denies joint swelling, Denies neck pain, Denies numbness and Denies tingling Integumentary/Breasts: Skin/Breast: Reports system reviewed and no additional complaints, except as docu, Reports swelling, Reports erythema and Denies rash Neurologic: Reports system reviewed and no additional complaints, except as documented, Denies Abnormal speech present, Denies dizziness, Denies headache(s), Denies numbness, Denies tingling and Denies weakness PMFSH Past Medical History Attestation statement: The following information was validated with the patient. Source: old records reviewed and nursing notes reviewed Medical History Nicotine dependence, cigarettes, uncomplicated Disc degeneration, lumbar Spondylosis of lumbar region without myelopathy or radiculopathy Chronic pain syndrome Postlaminectomy syndrome Hepatitis C antibody positive in blood Opioid use disorder Substance abuse Depression Asthma Surgical History History of ventral hernia repair Hx of colonoscopy Back pain with history of spinal surgery Family History Family History Family/Other Family history of asthma Mother Family history of asthma Colon cancer Social History Social History Household Members: Family Household Members Other:: sister Alcohol intake: current Alcohol intake frequency: does not drink Comment: Decreased anxiety Patient Tobacco Use Status: Current everyday Tobacco user Tobacco use type: Cigarette Cigarette Packs Per Day: 0.5 Cigarettes Per Day: 10 Advance Directives: No Advance Directives Information Provided: No Current occupational status: unemployed Physical Exam Vital Signs: Vital Signs: Last Vital Signs Temp 97.5 F 06/07/25 17:52 Pulse 52 06/07/25 17:52 Resp 16 06/07/25 17:52 BP 121/45 L 06/07/25 17:52 Pulse Ox 99 06/07/25 17:52 O2 Del Method Room Air 06/07/25 17:52 BMI result Body Mass Index 29.1 Const: General: cooperative, healthy appearing, comfortable and no acute distress Orientation/consciousness: patient oriented x3 Limitations: no limitations HEENT: Head: Yes normal to inspection Ears: hearing grossly normal bilaterally General nose exam: Normal external nose present Face and sinus: Yes normal facial exam Mouth: Normal oral and palatal mucosa present Throat: Yes posterior oropharynx normal Eyes: General: appearance normal, both eyes and all related structures Pupils: Equal, round and reactive pupils present Neck: Neck: Yes normal visual inspection Chest: Chest palpation & inspection: normal inspection of the chest Resp: Effort & Inspection: normal respiratory effort Auscultation: clear to auscultation bilaterally Cardio: Rate: regular rate Rhythm: regular rhythm Peripheral pulses: Peripheral pulses 2+ throughout GI: Inspection: Yes normal to inspection Palpation (GI): Soft to palpation and nontender Auscultation: normal bowel sounds Back/Spine/Pelvis: Thoracic/Lumbar Spine: thoracic and lumbar spine normal to inspection Skin: General skin exam: no rashes or lesions noted Neuro: General: patient oriented x3, no focal motor deficits and normal sensation to monofilament Cranial nerves: Yes Equal, round and reactive pupils present Cognition (Neuro): normal cognition Speech: No Abnormal speech present Gait exam (Neuro): Normal gait present Motor exam (neuro): 5/5 motor strength present throughout Extrem: Other: Full active and passive range of motion. Normal sensation. 2+ DP and PT pulses. Compartments are soft and compressible. I do not appreciate any wound over the area of redness General: Yes normal to inspection Medical Decision Making Medical Decision Making MDM Narrative: 55 yo male with past medical history asthma, OUD on methadone, previous back surgery here with complaints of right foot swelling, redness and pain for the last 2 days. Patient reports he noticed it after [place] was [place]. Denies fevers, chills, numbness, tingling. Exam is c/w with right foot cellulitis. No systemic s/s. NO open wounds or concern for osteomyelitis. Will need oral antibiotics, reviewed strict return precautions Differential Diagnosis Differential Diagnoses: The differential diagnosis associated with the presentation includes cellulitis see above for additional Admission/Observation Consideration of admission/observation: Escalation of care including admission/observation considered Mild cellulitis with no concerning signs or symptoms concerning for systemic cellulitis requiring IV antibiotics and admission Tests considered The following testing was considered but not selected: No reports of injury or trauma requiring x-ray imaging Prescription Management I considered prescription management with: Antibiotic Discharge Plan Discharge Clinical Impression: Cellulitis Patient Disposition: Home, Self-Care Instructions: Cellulitis (ED), Warm Compress or Soak (ED) Additional Instructions: Elevate the extremity Take Motrin or Tylenol if able as needed for pain or fever Monitor the site and return for increasing redness, swelling, fevers or chills. Take the antibiotics as prescribed Prescriptions: New ciprofloxacin HCl 500 mg tablet 500 mg PO BID Qty: 20 0RF cefpodoxime 200 mg tablet 200 mg PO BID Qty: 20 0RF Rx Instructions: must administer with a meal/food No Action (DME) miscellaneous medical supply Misc See Rx Instructions .Route Qty: 4 0RF Rx Instructions: As directed hydrocodone-acetaminophen 5-325 mg tablet 1 tab PO Q4-6H PRN (Reason: pain) Qty: 30 0RF Rx Instructions: Partial Fill upon patient request. ofloxacin 0.3 % drops 2 drp ophthalmic (eye) QID 7 Days Qty: 5 0RF naproxen 500 mg tablet 500 mg PO BID PRN (Reason: pain) Qty: 30 0RF cyclobenzaprine 10 mg tablet 10 mg PO TID PRN (Reason: muscle spasm) Qty: 15 0RF lidocaine [Lidoderm] 5 % adhesive patch,medicated 1 patch topical DAILY Qty: 15 0RF Rx Instructions: leave on most painful area for up to 12 hrs prednisone 20 mg tablet 40 mg PO DAILY Qty: 10 0RF methadone 40 mg tablet,soluble 50 mg PO DAILY albuterol sulfate 90 mcg/actuation HFA aerosol inhaler 2 puff PO Q4-6H PRN diclofenac sodium 1 % gel 2 g topical QID Arthritis Pain Relief(capsaic) 0.075 % cream topical TID Referrals: [facility] [Primary Care Provider, Medical] Print Language: Belarusian
[2025-06-07 17:52] VITALS: BP 121/45; PULSE 52; RESP 16; TEMP 36.4; O2SAT 99; BMI 29.1
--- OUTSIDE RECORDS SUMMARY | 2025-06-07 18:10 | XMS_ITS | Clinical Summary ---
Author Organization [facility] Address [address] [place] [address] Care Team Providers Care Transcript Evaluator Name Role Phone Leigha Guthrie MD Primary [...] Vaccine ( - 2023-2 5 season) 2024 Cholesterol Screening (Lipid Panel) 10/14/2024 Colorectal Cancer Screening: Colonoscopy 10/14/2024 HIV Screening 10/14/2024 Hepatitis C Screening 10/14/2024 Social Influencers of Health Screening 10/14/2024 Depression Screening 11/19/2024 Influenza Vaccine (#1) 2025 HIB Vaccines Aged Out No longer eligi [...] age to complete this topic Meningococcal B Vaccine Aged Out No l onger eligible based on patient's age to complete this topic RSV Immunization Patients Un yuly 20 months Aged Out No longer eligible b ased on patient's age to complete this topic Varicella Vaccines Aged Out No longer eligible based on patient's age to complete this topic Care Teams Transcript Evaluator Relationship Specialty Start Date End Date Leigha Guthrie MD [address] [place] [address] PCP - General Internal Medicine 03/31/20
--- OUTSIDE RECORDS SUMMARY | 2025-06-07 18:10 | XMS_ITS | Clinical Summary ---
Author Organization [facility] Address [address] [place] [address] Care Team Providers Care Warehouse Examiner Name Role Phone Leigha Guthrie MD Primary [...] (1 of 2) 2019 Influenza Vaccine (#1) 2025 Pneumococcal Vaccine Aged Out No long er eligible based on patient's age to complete this topic RSV Ped < 20 months Aged Out No longe r eligible based on patient's age to complete this topic Care Teams Warehouse Examiner Relationship Specialty Start Date End Date Leigha Guthrie MD PCP - General Internal Medicine 03/31/20
--- OUTSIDE RECORDS SUMMARY | 2025-06-07 18:10 | XMS_ITS | Clinical Summary ---
Author Organization [facility] [employer] [facility] Address [address] [place] [address] Care Team Providers Care Remote Sensing Technician Name Role Phone Lisa Fermin BROADCAST PRODUCER Primary Care Provider Allergies Active Allergy Reactions Criticality Noted Date Comments Penicillin G 08/02/2018 Medications * This document contains information received from the source organization and may not represent a complete record from that organization. nicotine polacrilex (Nicorette) 4 MG gum chew 1 piece of gum by oral route every 1-2 hours as needed in place of cigarette, chew and place in between gums/cheek 2 Active naloxone (Narcan) 4 mg/0.1 mL nasal spray Administer 0.1 mL into affected nostril(s). 2 Active methadone (Dolophine) 10 MG tablet Take 1 tablet by mouth every 8 (eight) hours. Active nicotine (Nicotrol) 10 MG inhaler Inhale 1 puff if needed for smoking cessation. Inhale (1units) by inhalation route 6 times everyday needed Active albuterol (Ventolin HFA) 108 (90 Base) MCG/ACT inhaler INHALE 2 PUFFS BY MOUTH EVERY 4 TO 6 HOURS NEEDED 18 g 1 4 Active nicotine polacrilex (Nicorette) 4 MG gumIndications:To bacco use disorder Chew 1 each (4 mg) if needed for smoking cessation. 100 each 5 Active lidocaine (Lidoderm) 5 % patchIndications: Chronic bilateral low back pain with bilateral sciatica Apply 1 patch topically Once per day. Remove & discard patch within 12 hours or as directed by MD. 30 patch 1 5 Active budesonide-formot connie (Symbicort) 80-4.5 MCG/ACT inhalerIndication s:Mild intermittent asthma without complication Inhale 1-2 puff every 4 hours as needed for shortness of breath, wheeze 1 each 11 5 Active albuterol 108 (90 Base) MCG/ACT inhalerIndication s:Mild intermittent asthma without complication Inhale 2 puffs every 6 (six) hours if needed for wheezing. 18 g 11 5 01/29/20 26 Active Active Problems Problem Noted Date Diagnosed Date [...] Assessment & Plan (11/14/2023 2:52 PM EST): Will obtain venous insufficiency ultrasound and refer to vascular for further eval Given recent cramping will also check magnesium levels Trial gabapentin 100-200mg for pain. Reviewed administration, risks, side effects including increased risk of respiratory depression with concurrent opioid use Patient verbalizes understanding and agrees to plan [...] C without hepatic coma 022 Overview (10/31/2023): Previously followed by [facility] HCV team. Did not complete tx 2021- negative viral load Abd ultrasound from 2020 unremarkable. No evidence of advanced liver dz Assessment & Plan (07/13/2023 8:36 AM EDT): Will check viral load today Pending results will refer back to HCV team as indicated Assessment & Plan (11/06/2022 9:36 PM EST): - Check viral load today, refer back to HCV team if indicated HISTORY -Previously followed by [facility] HCV team. Did not complete tx - Abd ultrasound from 2020 unremarkable, no evidence of advanced liver disease Healthcare maintenance 11/01/2022 Overview (10/22/2024): C-Scope: at [facility] 2-3 years ago. Needs records PSA: Due 09/2023, will order at follow up Vision Exam: Discuss at follow up Dental Care: Followed by outside facility Immunizations: Declines covid, flu Smoking: Established with [facility] LDLCT--12/2023 birads 1 Assessment & Plan (09/10/2023 2:49 PM EDT): Accepts referral to LDLCT screening Assessment & Plan (07/02/2023 3:48 PM EDT): C-Scope: at [facility] 2-3 years ago. Needs records PSA: Due 09/2023 Vision Exam: Dental Care: Immunizations: Assessment & Plan (11/01/2022 10:18 PM EST): CRC: Reports 2-3 years ago at [facility], will request records PSA: 09/2022 0.15 Immunizations: Needs COVID booster, shingles. Declines today Vision: Referred to [facility] vision today Dental: To establish at [facility] STI screening: Discuss at f/u HIV: 10/2021 Neg BMP: 02/2022, WNL Lipids: 09/2022, LDL 91, WNL, not on statin A1c: 5.4, 10/2021 ASCVD: 5.5%, Chronic low back pain 10/20/2022 Assessment & Plan (11/06/2022 10:10 AM EST): - Previously rx'd gabapentin without sx improvement - s/p lumbar decompression and spinal fusion at [facility] 05/2020 - Previously seen by pain mngmt at [facility] for steroid injection Moderate episode of recurrent major depressive d isorder 10/20/2022 Overview (07/13/2023): Hx of psych hospitalization Cymbalta 60mg daily Assessment & Plan (07/25/2023 [...] his family PLAN: 1. Follow up with [facility]: Not recommended for follow-up 2. Patient goal is to be connected with a therapist 3. Behavioral Recommendations a. Patient will engage in services once established. b. Patient may request to speak with [facility], as needed Assessment & Plan (07/13/2023 8:38 AM EDT): Restart cymbalta 60mg daily, also helpful for chronic back pain Will resubmit referral to [facility]. Pt declines in-office BE. Contact [facility] if sx worsen or experiencing thoughts of SI or self harm. Pt has N crisis contact information Assessment & Plan (11/06/2022 9:39 PM EST): - Start cymbalta 60mg once daily. Reviewed administration, risks, side effects - Contact HC if symptoms worsen or experiencing thoughts of SI or self harm - Patient has [facility] crisis number available - Continue to work with therapist - Follow up 1 month HISTORY - Long hx of anxiety/depression - Previously hospitalizations for psychiatric care - Working with therapist, Gretel in [place] who is helpful Mild intermittent asthma 11/06/2021 [...] Will reach out to MAT program at [facility] regarding establishing with head track coach HISTORY - On methadone maintenance therapy - Persistent heroin use-decreased use from 10 pills per day to 6 pills per day over the past month - No hx of IVDU - Carries Narcan at all times - Occasionally uses alone Resolved Problems Problem Noted Date Diagnosed Date Resolved Date Cirrhosis of liver 11/03/2021 2 Encounters Date Type Department Care Team Description 05/12/2025 10:00 AM EDT Office Visit [facility] MEDICINE [address] [place] [id number] Zoya Earl MD Anxiety and depression (Primary Dx); Uncomplicated opioid dependence (CMS/HCC) 05/12/2025 Patient Outreach [facility] MEDIC[facility] [address] [place] [address] Pete Jaimes Recovery Supports 05/12/2025 Travel 04/24/2025 Telephone [facility] MEDICINE [address] [place] [address] Lisa Fermin FNP chart prep 04/16/2025 Patient Outreach [facility] [address] [place] [address] [facility], [facility] Pre-visit Planning ((Unable to reach for PVP screening or LVM)) from Last 3 Months Immunizations Immunization Administration Dates Next Due Hep A / [...] with others, in a hotel, in a senior care, living outside on the street, on a [...] 68 02/12/2025 9:01 AM EDT Temperature 36.5 C (97.7 F) 01/28/2025 10:30 AM EDT Respiratory Rate 20 01/28/2025 10:30 AM EDT Oxygen Saturation 99% 01/28/2025 10:30 AM EDT Inhaled Oxygen Concentration - - Weight 80.7 kg (178 lb) 01/28/2025 10:30 AM EDT Height 167.6 cm (5' 6 ) 01/28/2025 10:30 AM EDT Body Mass Index 28.73 01/28/2025 10:30 AM EDT Plan of Treatment Health Maintenance Due Date Last Done Comments CT Colonography 1969 Colonoscopy 1969 Colorectal Cancer Screening 1969 Dental Prophylaxis 1969 FIT DNA/Cologuard 1969 FIT 1969 FOBT 1969 Sigmoidoscopy 1969 Disability Screening 1969 Zoster Vaccines (1 of 2) 2019 Dental X-Ray: Bitewings 08/16/2024 08/15/2023, 07/25 Influenza Vaccine (#1) 2025 , 09/08/2022, 10/04/2021, Additional history exists SDOH Screening 08/12/2025 08/12/2024 Dental Oral Exam [...] Completed 08/08/2024, , 02/22/2021, Additional history exists HIV Screening Completed 01/28/2025, [...] Procedure Name Priority Date/Time Associated Diagnosis Comments PANORAMIC RADIOGRAPHIC IMAGE Routine 02/12/2025 9:00 AM EDT PERIODIC ORAL EVALUATION - ESTABLISHED PATIENT Routine 02/12/2025 9:00 AM EDT HIV 1/2 ANTIGEN/ANTIBODY, FOURTH GENERATION W/RFL Routine 01/28/2025 11:19 AM EDT Weight loss, abnormal LIPID PANEL, STANDARD Routine 01/28/2025 11:19 AM EDT Health care maintenance INTRAORAL - COMPLETE SERIES OF RADIOGRAPHIC IMAGES Routine 08/15/2023 3:30 PM EDT from Last 3 Months or Most Recently Relevant to Health Maintenance Results * HIV-1/2 Antigen and Antibodies, Fourth Generation, with Reflexes (01/28/2025 11:19 AM EDT) HIV AB/AG Nonreactive Nonreactive [facility] Comment:HIV-1 p24 Ag and/or HIV-1/HIV-2 Ab not detected.A test result that is nonreactive does not exclude thepossibility of exposure to or infection with HIV-1 and/orHIV-2. Nonreactive results in this assay for individualswith prior exposure to HIV-1 and/or HIV-2 may be due toantigen and antibody levels that are below the limit ofdetection of this assay.The [facility] HIV Ag/Ab Combo assay result andsupplemental assay results should be interpreted inconjunction with the patient's clinical presentation,history and other laboratory results. If the results areinconsistent with clinical evidence, additional testing issuggested to confirm the result. Blood Venous blood specimen / Unknown 01/28/2025 11:19 AM EDT 01/28/2025 1:50 PM EDT [facility] BROADCAST PRODUCER LAB BLOOD ORDERABLES Final Re sult [facility] [address] [place] [address] [phone] * Lipid Panel, Standard (01/28/2025 11:19 AM EDT) Triglycerides 135 <150 mg/dL [facility] Comment:Desirable Triglyceri de: less than 150 mg/dLBorderline High Triglyceride 150-199 mg/dLHigh Triglyceride: 200-499 mg/dLVery High Triglyceride: greater than or equal to 5OO mg/dL Cholesterol 133 <200 mg/dL [facility] Comment:Desirable Cholestero l: less than 200 mg/dLBorderline High Cholesterol: 200-239 mg/dLHigh Cholesterol: greater than 239 mg/dL LDL Cholesterol Calculated 56 <100 mg/dL [facility] Comment:Desirable LDL: less than 100 mg/dLNear Optimal/Above Optimal LDL: 110- 129 mg/dLBorderline High LDL: 130-159 mg/dLHigh LDL: 160-189 mg/dLVery High LDL: greater than or equal to 190 mg/dL HDL Cholesterol 50 >40 mg/dL [facility] Comment:Desirable HDL: great er than 40 mg/dL Note: This HDL assay may give artificially low results in patients with liver disease. Blood Venous blood specimen / Unknown 01/28/2025 11:19 AM EDT 01/28/2025 1:50 PM EDT [facility] LAB BLOOD ORDERABLES Final Re sult [facility] [address] [place] [address] [phone] from Last 3 Months or Most Recently Relevant to Health Maintenance Insurance [facility] C3 [place] ST[place] AD[place] Care Teams Remote Sensing Technician Relationship Specialty Start Date End Date Lisa Fermin FNP [address] [place] [id number] PCP - General Family Medicine 08/16/21
== END 2025-06-07 18:15 | disposition home or self-care (01) ==
PROVIDERS: Emergency Provider Emergency Medicine
DX: L03.115 Cellulitis of right lower limb (principal); M79.671 Pain in right foot; Z79.899 Other long term (current) drug therapy; F17.210 Nicotine dependence, cigarettes, uncomplicated
CPT/HCPCS: 99281; 99283